=== PATIENT | male | born 1970 | race African-American/Black ===

== ENCOUNTER 2020-02-06 10:55 | Inpatient (IN) | payer OTHER ==
[~2020-02-06] VITALS: Ht 172.7 cm; Wt 90.7 kg
[2020-02-06 11:24] VITALS: BP 130/98
[2020-02-06 11:29] LABS: HEMATOCRIT 41.9 % (42.0-52.0); HEMOGLOBIN 12.7 G/DL (14.2-18.0); MEAN CORPUSCULAR VOLUME 73 FL (80-99); PLATELET COUNT 179 K/UL (150-450); RED BLOOD COUNT 5.76 M/UL (4.70-6.10); RED CELL DISTRIBUTION WIDTH 16.7 % (11.6-14.8)
[2020-02-06 11:43] LABS: ANION GAP 10 mmol/L (5-15); BLOOD UREA NITROGEN 8 mg/dL (7-18); CALCIUM 8.5 MG/DL (8.5-10.1); CARBON DIOXIDE 27 MMOL/L (21-32); CHLORIDE 104 MMOL/L (98-107); CREATININE 1.1 MG/DL (0.55-1.30); POTASSIUM 4.2 MMOL/L (3.5-5.1); SODIUM 141 MMOL/L (136-145)
[2020-02-06 11:47] LABS: ALANINE AMINOTRANSFERASE 25 U/L (12-78); ALBUMIN 4.5 G/DL (3.4-5.0); ALBUMIN/GLOBULIN RATIO 1.2 (1.0-2.7); ALKALINE PHOSPHATASE 63 U/L (46-116); ASPARTATE AMINO TRANSFERASE 27 U/L (15-37); BILIRUBIN,TOTAL 0.8 MG/DL (0.2-1.0)
[2020-02-06] MEDS ORDERED: Morphine Sulfate 10mg/ml Inj IVP ONE (12:00)
--- NOTE | 2020-02-06 13:28 | Diagnostic Imaging Report ---
Indication: Chest pain Technique: One view of the chest Comparison: none Findings: Lungs and pleural spaces are clear. Heart size is normal. Impression: No acute process
[2020-02-06] MEDS ORDERED: Omnipaque 350 100ml vial INJ PRN (13:30)
[2020-02-06] MEDS ORDERED: LORazepam 1mg tab ORAL ONE (13:30)
[2020-02-06] MEDS ORDERED: CYCLOBENZAPRINE10 MG ORAL (13:55)
[2020-02-06] MEDS ORDERED: AMLODIPINE BESYL5 MG ORAL (13:55)
[2020-02-06] MEDS ORDERED: PRILOSEC OTC20 MG ORAL (13:55)
[2020-02-06] MEDS ORDERED: NAPROXEN250 MG ORAL (13:55)
[2020-02-06] MEDS ORDERED: GABAPENTIN600 MG ORAL (13:55)
[2020-02-06] MEDS ORDERED: FLUTICASONE PRO16 G1 NASAL (13:55)
[2020-02-06] MEDS ORDERED: NORCO 10-325 T1 EACH ORAL (13:55)
[2020-02-06] MEDS ORDERED: FOLIC ACID1 MG ORAL (13:55)
--- NOTE | 2020-02-06 14:27 | Emergency Room Report ---
History of Present Illness General Chief Complaint: Chest Pain Source: Patient, EMS (Sabra Dillard DO) Present Illness HPI Patient states he has a history of sickle cell disease and other multiple chronic medical problems. The patient is very agitated gentle inquiry questions. When I arrived into the room to initially evaluate this patient he did not want to speak to me and stated that he had already spoken to the nurse. I asked him to please report to me his symptoms as I would be managing his care and that it is better for me to obtain his history directly from him. The patient continued to be agitated and irritable. He was insulting and constantly stating that he is receiving inferior care. The patient states that he has a terrible roommate and he has been in significant conflict with this roommate. He states that yesterday evening he had another argument with his roommate and he developed chest pain during the argument and all over body pain. He states he has had these symptoms since yesterday evening. He denies cough or congestion. He denies fever or chills. He denies shortness of breath. He states he is very anxious. He states that most doctors and nurses make assumptions about him because his labs are normal but he feels terrible. He states that he has had very poor interactions with most medical personnel. This was in response to why he was so angry as I had never seen him in the past and I am unfamiliar with his medical history. He continues to state that doctors and nurses are terrible people. I felt that the conversation was not constructive and that this patient was never going to be pleased with any care that he received. 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: Yes COVID-19 Screening: Negative COVID-19 COVID-19 Testing Source: 3 weeks ago, nasopharynx (Sabra Dillard DO) Patient History Past Medical History: HTN, other - SCD Social History: Denies: smoking, alcohol use, drug use Reviewed Nursing Documentation: PMH: Agreed; PSxH: Agreed (Sabra Dillard DO) Nursing Documentation-PMH Hx Hypertension: Yes (Sabra Dillard DO) Review of Systems All Other Systems: negative except mentioned in HPI ([facility]) Physical Exam Vital Signs Date Time Temp Pulse Resp B/P (MAP) Pulse Ox O2 Delivery O2 Flow Rate FiO2 02/06/20 10:49 98.6 102 20 138/100 (113) 98 Room Air 02/06/20 11:24 99 Sp02 EP Interpretation: reviewed, normal General Appearance: no apparent distress, alert, GCS 15, non-toxic Head: normocephalic, atraumatic Eyes: bilateral eye normal inspection, bilateral eye PERRL ENT: hearing grossly normal, normal pharynx, no angioedema, normal voice Neck: full range of motion, supple/symm/no masses Respiratory: lungs clear, normal breath sounds, no respiratory distress, no retraction, no accessory muscle use, speaking full sentences Cardiovascular #1: regular rate, rhythm, no edema Cardiovascular #2: 2+ carotid (R), 2+ carotid (L), 2+ radial (R), 2+ radial (L) , 2+ femoral (R), 2+ femoral (L), 2+ dorsalis pedis (R), 2+ dorsalis pedis (L) Gastrointestinal: normal bowel sounds, non tender, soft, non-distended, no guarding, no rebound Rectal: deferred Musculoskeletal: back normal, normal range of motion, gait/station normal, non- tender Neurologic: alert, motor strength/tone normal, oriented x3, sensory intact, responsive, speech normal Psychiatric: judgement/insight normal, memory normal, mood/affect normal, no suicidal/homicidal ideation Skin: no rash, normal color ([facility]) Medical Decision Making Diagnostic Impression: Primary Impression: Chest pain ER Course This patient has a history of sickle cell disease. Today he is not in crises. He does present with chest pain. There is no evidence of acute chest syndrome, acute coronary syndrome. The patient was given IV morphine and IV fluids and admitted for pain control. The patient's d-dimer is elevated which is nonspecific but given this finding and the patient's chest pain, I did go ahead and obtain a CT of the chest to assess for PE. At the time of this dictation the CT is pending. Dr. Kahn will follow up on these results. Please see his addendum. Laboratory Tests Test 7/16/20 11:06 White Blood Count 5.0 K/UL (4.8-10.8) Red Blood Count 5.76 M/UL (4.70-6.10) Hemoglobin 12.7 G/DL (14.2-18.0) L Hematocrit 41.9 % (42.0-52.0) L Mean Corpuscular Volume 73 FL (80-99) L Mean Corpuscular Hemoglobin 22.0 PG (27.0-31.0) L Mean Corpuscular Hemoglobin Concent 30.3 G/DL (32.0-36.0) L Red Cell Distribution Width 16.7 % (11.6-14.8) H Platelet Count 179 K/UL (150-450) Mean Platelet Volume 10.1 FL (6.5-10.1) Neutrophils (%) (Auto) % (45.0-75.0) Lymphocytes (%) (Auto) % (20.0-45.0) Monocytes (%) (Auto) % (1.0-10.0) Eosinophils (%) (Auto) % (0.0-3.0) Basophils (%) (Auto) % (0.0-2.0) Differential Total Cells Counted 100 Neutrophils % (Manual) 73 % (45-75) Lymphocytes % (Manual) 23 % (20-45) Monocytes % (Manual) 3 % (1-10) Eosinophils % (Manual) 1 % (0-3) Basophils % (Manual) 0 % (0-2) Band Neutrophils 0 % (0-8) Platelet Estimate Adequate Platelet Morphology Normal Polychromasia 1+ Hypochromasia 1+ Anisocytosis 1+ Microcytosis 1+ D-Dimer 1.41 mg/L FEU (0.00-0.49) H Sodium Level 141 MMOL/L (136-145) Potassium Level 4.2 MMOL/L (3.5-5.1) Chloride Level 104 MMOL/L (98-107) Carbon Dioxide Level 27 MMOL/L (21-32) Anion Gap 10 mmol/L (5-15) Blood Urea Nitrogen 8 mg/dL (7-18) Creatinine 1.1 MG/DL (0.55-1.30) Estimated Glomerular Filtration Rate > 60 mL/min (>60) Glucose Level 148 MG/DL (74-106) H Calcium Level 8.5 MG/DL (8.5-10.1) Total Bilirubin 0.8 MG/DL (0.2-1.0) Aspartate Amino Transferase (AST) 27 U/L (15-37) Alanine Aminotransferase (ALT) 25 U/L (12-78) Alkaline Phosphatase 63 U/L (46-116) Troponin I 0.000 ng/mL (0.000-0.056) C-Reactive Protein, Quantitative 1.1 mg/dL (0.00-0.90) H Total Protein 8.1 G/DL (6.4-8.2) Albumin 4.5 G/DL (3.4-5.0) Globulin 3.6 g/dL Albumin/Globulin Ratio 1.2 (1.0-2.7) (Sabra Dillard Judith ) ER Course Patient was signed out to me pending admission. Patient being admitted for chest pain. It was negative. CT angiogram did not demonstrate any large vessel PE. Patient was admitted to the hospitalist storeperson. (Jd Kahn M.D.) EKG Diagnostic Results Rate: tachycardiac Rhythm: other - S.tachycardia ST Segments: other - NSST ([facility]) Rhythm Strip Diag. Results EP Interpretation: yes Rate: 110's Rhythm: no PVC's, no ectopy, other - S.tachycardia ([facility]) Chest X-Ray Diagnostic Results Chest X-Ray Diagnostic Results : Chest X-Ray Ordered: Yes # of Views/Limited/Complete: 1 View Indication: Chest Pain EP Interpretation: Yes Interpretation: no consolidation, no effusion, no pneumothorax, no acute cardiopulmonary disease Impression: No acute disease Electronically Signed by: Sabra Dillard DO ([facility]) CT/MRI/US Diagnostic Results CT/MRI/US Diagnostic Results : Imaging Test Ordered: CTA Chest Impression pending (Sabra Dillard Judith ) Last Vital Signs Date Time Temp Pulse Resp B/P (MAP) Pulse Ox O2 Delivery O2 Flow Rate FiO2 02/06/20 12:36 98.6 02/06/20 11:24 110 19 130/98 99 Room Air 02/06/20 11:24 99 (NishantSabra M. DO) Disposition: ADMITTED INPATIENT Condition: Stable Referrals: NON PHYSICIAN (PCP) Sabra Dillard DO Feb 06, 2020 14:27 Jd Kahn M.D. Feb 06, 2020 17:06
[2020-02-06 15:00] VITALS: BP 124/95
[2020-02-06] MEDS ORDERED: Zolpidem 5mg tab ORAL PRN (15:41)
[2020-02-06] MEDS ORDERED: HYDROcodone/Acetamin 10/325 tab ORAL PRN (15:45)
[2020-02-06] MEDS ORDERED: Miralax 17gm pkt ORAL PRN (15:45)
--- NOTE | 2020-02-06 15:53 | Diagnostic Imaging Report ---
ndication: Chest pain Technique: IV administration nonionic contrast. Spiral acquisitions obtained from the lung bases to the lung apices. Multiplanar and 3-D reconstructions were generated. Total dose length product 324 mGycm. CTDIvol(s) one, one, 31, 8 mGy. Dose reduction achieved using automated exposure control Comparison: none Findings: Poor quality pulmonary arterial opacification precludes exclusion old with large central pulmonary emboli. Normal caliber pulmonary arteries. No evidence of right ventricular dilatation. Normal branching anatomy and caliber of the great neck vessels. No evidence of thoracic aortic aneurysm or dissection. The included upper abdominal visceral vessels are unremarkable. Bands of atelectasis are seen in the right upper and middle lobes. Reticular opacities are seen in the posterior lower lobes bilaterally. Faint hazy opacities are also seen in the bilateral lower lobe. No definite infiltrates. No effusions, masses, or nodules. The heart size is normal. No pericardial effusion. The thyroid is unremarkable. No mediastinal or hilar mass or adenopathy. The esophagus is unremarkable. No axillary or chest wall mass or adenopathy. Included upper abdominal viscera demonstrate massive splenomegaly, spleen measuring at least 18.7 cm in diameter, incompletely visualized however. Impression: Very limited evaluation of the pulmonary arteries due to poor quality pulmonary arterial opacification. No gross large vessel central pulmonary are demonstrated. Peripheral emboli not excludable Areas of parenchymal atelectasis, as described. Subtle peripheral opacities in the lower lobes could represent early infiltrates. Massive splenomegaly The CT scanner at [facility] is accredited by the [employer] [place] and the scans are performed using protocols designed to limit radiation exposure to as low as reasonably achievable to attain images of sufficient resolution adequate for diagnostic evaluation.
[2020-02-06 16:15] VITALS: BP 142/107
[2020-02-06] MEDS: Cyclobenzaprine 10mg Tab ORAL SCH (17:41)
[2020-02-06 20:00] VITALS: BP 152/99
[2020-02-06] MEDS: Heparin 5000 units/ml inj SUBQ SCH (22:39)
[2020-02-07] VITALS: BP 121/99
[2020-02-07 04:00] VITALS: BP 134/98
[2020-02-07 06:39] LABS: BASOPHILS % (AUTO) 0.6 % (0.0-2.0); EOSINOPHILS % (AUTO) 1.1 % (0.0-3.0); HEMATOCRIT 41.9 % (42.0-52.0); HEMOGLOBIN 12.5 G/DL (14.2-18.0); LYMPHOCYTES % (AUTO) 25.5 % (20.0-45.0); MEAN CORPUSCULAR VOLUME 72 FL (80-99); MONOCYTES % (AUTO) 5.4 % (1.0-10.0); NEUTROPHILS % (AUTO) 67.4 % (45.0-75.0); PLATELET COUNT 169 K/UL (150-450); RED BLOOD COUNT 5.83 M/UL (4.70-6.10); RED CELL DISTRIBUTION WIDTH 16.7 % (11.6-14.8); WHITE BLOOD COUNT 5.9 K/UL (4.8-10.8)
[2020-02-07 07:22] LABS: ALANINE AMINOTRANSFERASE 30 U/L (12-78); ALBUMIN 4.2 G/DL (3.4-5.0); ALBUMIN/GLOBULIN RATIO 1.1 (1.0-2.7); ALKALINE PHOSPHATASE 62 U/L (46-116); ANION GAP 9 mmol/L (5-15); ASPARTATE AMINO TRANSFERASE 27 U/L (15-37); BILIRUBIN,TOTAL 0.9 MG/DL (0.2-1.0); BLOOD UREA NITROGEN 9 mg/dL (7-18); CALCIUM 9.1 MG/DL (8.5-10.1); CARBON DIOXIDE 28 MMOL/L (21-32); CHLORIDE 103 MMOL/L (98-107); CREATININE 1.1 MG/DL (0.55-1.30); LACTATE DEHYDROGENASE 293 U/L (81-234); SODIUM 140 MMOL/L (136-145)
[2020-02-07 08:00] VITALS: BP 126/91
[2020-02-07] MEDS: Cyclobenzaprine 10mg Tab ORAL SCH ×3 (08:03→17:01)
[2020-02-07] MEDS: Heparin 5000 units/ml inj SUBQ SCH ×2 (08:11→21:00)
[2020-02-07 12:00] VITALS: BP 131/85
--- NOTE | 2020-02-07 12:32 | Consultation ---
History of Present Illness General Date patient seen: Feb 07, 2020 Chief Complaint: Chest Pain Present Illness HPI 49 year old male with hx of SCD, HTN, presented to ER with CC of right sided chest pain after an episode of argument with his roommate. He was tachycardic on presentation and admitted to telemetry for furhter management. Allergies: Coded Allergies: No Known Allergies (Unverified , 02/06/20) Medication History Scheduled Amlodipine Besylate* (Amlodipine Besylate*), 5 MG ORAL BID, (Reported) Cyclobenzaprine Hcl* (Flexeril*), 10 MG ORAL THREE TIMES A DAY, (Reported) Fluticasone Propionate* (Fluticasone Propionate*), 1 SPRAY NASAL DAILY, ( Reported) Folic Acid* (Folic Acid*), 1 MG ORAL DAILY, (Reported) Gabapentin* (Gabapentin*), 300 MG ORAL THREE TIMES A DAY, (Reported) Omeprazole Magnesium (Prilosec Otc), 20 MG ORAL DAILY, (Reported) Scheduled PRN Hydrocodone Bit/Acetaminophen 10-325* (Springer 10-325*), 1 TAB ORAL Q6H PRN for For Pain, (Reported) Naproxen* (Naprosyn*), 250 MG ORAL TID PRN for For Pain, (Reported) Patient History Healthcare decision maker Resuscitation status Advanced Directive on File Past Medical/Surgical History Past Medical/Surgical History: (1) History of hypertension (2) Sickle cell disease Review of Systems All Other Systems: negative except mentioned in HPI Physical Exam General Appearance: WD/WN, no apparent distress Lines, tubes and drains: peripheral, central line HEENT: normocephalic, anicteric Neck: non-tender, normal alignment Respiratory/Chest: chest wall non-tender, lungs clear Breasts: no masses Cardiovascular/Chest: normal peripheral pulses, regular rhythm Abdomen: normal bowel sounds, non tender Genitourinary/Rectal: normal genital exam, normal rectal exam Extremities: normal range of motion Last 24 Hour Vital Signs Date Time Temp Pulse Resp B/P (MAP) Pulse Ox O2 Delivery O2 Flow Rate FiO2 02/07/20 09:00 Room Air 02/07/20 08:24 104 126/91 02/07/20 08:00 97.8 104 20 126/91 (103) 97 02/07/20 07:54 109 02/07/20 04:47 97.3 7/17/20 04:00 97.7 109 18 134/98 (110) 100 02/07/20 04:00 109 02/07/20 00:00 109 02/07/20 00:00 97.3 110 18 121/99 (106) 98 02/06/20 22:03 97.9 02/06/20 20:39 Room Air 02/06/20 20:00 103 02/06/20 20:00 98.2 103 18 152/99 (116) 98 02/06/20 17:22 103 02/06/20 16:45 Room Air 02/06/20 16:15 97.9 103 18 142/107 (119) 98 02/06/20 15:50 98.6 94 18 120/96 99 Room Air 02/06/20 15:00 98.6 96 17 124/95 98 Room Air 02/06/20 12:36 98.6 Intake and Output 02/06/20 02/07/20 19:00 07:00 Intake Total 150 ml 1000 ml Balance 150 ml 1000 ml Intake Oral 0 ml 1000 ml IV Total 150 ml Laboratory Tests Test 02/06/20 15:35 02/07/20 05:45 Urine Opiates Screen Positive (NEGATIVE) H Urine Barbiturates Screen Negative (NEGATIVE) Phencyclidine (PCP) Screen Negative (NEGATIVE) Urine Amphetamines Screen Negative (NEGATIVE) Urine Benzodiazepines Screen Negative (NEGATIVE) Urine Cocaine Screen Negative (NEGATIVE) Urine Marijuana (THC) Screen Negative (NEGATIVE) White Blood Count 5.9 K/UL (4.8-10.8) Red Blood Count 5.83 M/UL (4.70-6.10) Hemoglobin 12.5 G/DL (14.2-18.0) L Hematocrit 41.9 % (42.0-52.0) L Mean Corpuscular Volume 72 FL (80-99) L Mean Corpuscular Hemoglobin 21.4 PG (27.0-31.0) L Mean Corpuscular Hemoglobin Concent 29.8 G/DL (32.0-36.0) L Red Cell Distribution Width 16.7 % (11.6-14.8) H Platelet Count 169 K/UL (150-450) Mean Platelet Volume 8.1 FL (6.5-10.1) Neutrophils (%) (Auto) 67.4 % (45.0-75.0) Lymphocytes (%) (Auto) 25.5 % (20.0-45.0) Monocytes (%) (Auto) 5.4 % (1.0-10.0) Eosinophils (%) (Auto) 1.1 % (0.0-3.0) Basophils (%) (Auto) 0.6 % (0.0-2.0) Sodium Level 140 MMOL/L (136-145) Potassium Level 4.0 MMOL/L (3.5-5.1) Chloride Level 103 MMOL/L (98-107) Carbon Dioxide Level 28 MMOL/L (21-32) Anion Gap 9 mmol/L (5-15) Blood Urea Nitrogen 9 mg/dL (7-18) Creatinine 1.1 MG/DL (0.55-1.30) Estimat Glomerular Filtration Rate > 60 mL/min (>60) Glucose Level 112 MG/DL (74-106) H Calcium Level 9.1 MG/DL (8.5-10.1) Total Bilirubin 0.9 MG/DL (0.2-1.0) Aspartate Amino Transf (AST/SGOT) 27 U/L (15-37) Alanine Aminotransferase (ALT/SGPT) 30 U/L (12-78) Alkaline Phosphatase 62 U/L (46-116) Lactate Dehydrogenase 293 U/L (81-234) H Total Protein 8.1 G/DL (6.4-8.2) Albumin 4.2 G/DL (3.4-5.0) Globulin 3.9 g/dL Albumin/Globulin Ratio 1.1 (1.0-2.7) Height (Feet): 5 Height (Inches): 8.00 Weight (Pounds): 200 Medications Current Medications Medications (Trade) Dose Ordered Sig/Emily Route PRN Reason Start Time Stop Time Status Last Admin Dose Admin Acetaminophen (Tylenol) 650 mg Q4H PRN ORAL fever 02/06/20 15:45 03/07/20 15:44 Acetaminophen/ Hydrocodone Bitart (Springer ) 1 tab Q6H PRN ORAL For Pain 02/06/20 15:45 02/13/20 15:44 02/06/20 21:33 Amlodipine Besylate (Norvasc) 5 mg DAILY ORAL 02/07/20 09:00 03/08/20 08:59 02/07/20 08:24 Cyclobenzaprine HCl (Flexeril) 10 mg THREE TIMES A DAY ORAL 02/06/20 18:00 03/07/20 17:59 02/07/20 08:03 Dextrose (Dextrose 50%) 25 ml Q30M PRN IV Hypoglycemia 02/06/20 15:45 05/06/20 15:44 Dextrose (Dextrose 50%) 50 ml Q30M PRN IV Hypoglycemia 02/06/20 15:45 05/06/20 15:44 Gabapentin (Neurontin) 300 mg THREE TIMES A DAY ORAL 02/06/20 18:00 03/07/20 17:59 02/07/20 08:03 Heparin Sodium (Porcine) (Heparin 5000 units/ml) 5,000 units EVERY 12 HOURS SUBQ 02/06/20 21:00 03/22/20 20:59 02/07/20 08:11 Hydromorphone HCl (Dilaudid) 2 mg Q3H PRN IV pain 4-6 02/06/20 15:45 02/13/20 15:44 Hydromorphone HCl (Dilaudid) 3 mg Q3H PRN IVP For Pain 7-02/06/20 15:45 02/13/20 15:44 02/07/20 11:29 Iohexol (Omnipaque 350 100ml) 100 ml NOW PRN INJ Radiology Procedure 02/06/20 13:30 02/08/20 13:26 Ondansetron HCl (Zofran) 4 mg EVERY 3 HOURS PRN IVP Nausea & Vomiting with narcoti 02/07/20 12:30 03/08/20 12:29 UNV Ondansetron HCl (Zofran) 4 mg Q6H PRN IVP Nausea & Vomiting 02/06/20 15:45 03/07/20 15:44 Polyethylene Glycol (Miralax) 17 gm HSPRN PRN ORAL Constipation 02/06/20 15:45 03/07/20 15:44 Sodium Chloride 1,000 ml @ 75 mls/hr [id number] IV 02/06/20 15:38 03/07/20 15:37 02/07/20 04:15 Zolpidem Tartrate (Ambien) 5 mg HSPRN PRN ORAL Insomnia 02/06/20 15:41 02/13/20 15:40 Assessment/Plan Problem List: (1) Chest pain ICD Codes: R07.9 - Chest pain, unspecified SNOMED: 94419833 (2) Sickle cell crisis ICD Codes: D57.00 - Hb-SS disease with crisis, unspecified SNOMED: 313335249 (3) History of hypertension ICD Codes: Z86.79 - Personal history of other diseases of the circulatory system SNOMED: 007587742 Assessment/Plan: iv fluids check LDH and reti count daily symptomatic treatment Zofran prn echo\ cardiology to see. Aracely Mcdonald MD Feb 07, 2020 12:32
[2020-02-07 16:00] VITALS: BP 108/71
--- NOTE | 2020-02-07 18:47 | Cardiology Progress Note ---
Assessment/Plan Assessment/Plan dyan t reviewed d/w rn PUI ct noted massive splenomgaly and reticulr infiltrate cedars data reviewed pt was lat there 2017 ss crissi , htn , sicke cell pain is on norvasc bid tropneg ekg reviewed will reealuate pt in am pt is afebrile saturation are normal cxr not show infiltrate exam in er did nto shwe any pulm ficings hgb is not low pt reprotedly is on bid norvasc but bp at this pointnto high enough to withstand bid dosing [id number] Objective Last 24 Hour Vital Signs Date Time Temp Pulse Resp B/P (MAP) Pulse Ox O2 Delivery O2 Flow Rate FiO2 02/07/20 16:00 97.9 89 20 108/71 (83) 96 02/07/20 15:45 99 02/07/20 12:00 97.8 113 20 131/85 (100) 97 02/07/20 11:33 115 02/07/20 09:00 Room Air 02/07/20 08:24 104 126/91 02/07/20 08:00 97.8 104 20 126/91 (103) 97 02/07/20 07:54 109 02/07/20 04:47 97.3 02/07/20 04:00 97.7 109 18 134/98 (110) 100 02/07/20 04:00 109 02/07/20 00:00 109 02/07/20 00:00 97.3 110 18 121/99 (106) 98 02/06/20 22:03 97.9 02/06/20 20:39 Room Air 02/06/20 20:00 103 02/06/20 20:00 98.2 103 18 152/99 (116) 98 Intake and Output 02/06/20 02/07/20 19:00 07:00 Intake Total 150 ml 1075 ml Balance 150 ml 1075 ml Intake Oral 0 ml 1000 ml IV Total 150 ml 75 ml Laboratory Tests Test 02/07/20 05:45 White Blood Count 5.9 K/UL (4.8-10.8) Red Blood Count 5.83 M/UL (4.70-6.10) Hemoglobin 12.5 G/DL (14.2-18.0) L Hematocrit 41.9 % (42.0-52.0) L Mean Corpuscular Volume 72 FL (80-99) L Mean Corpuscular Hemoglobin 21.4 PG (27.0-31.0) L Mean Corpuscular Hemoglobin Concent 29.8 G/DL (32.0-36.0) L Red Cell Distribution Width 16.7 % (11.6-14.8) H Platelet Count 169 K/UL (150-450) Mean Platelet Volume 8.1 FL (6.5-10.1) Neutrophils (%) (Auto) 67.4 % (45.0-75.0) Lymphocytes (%) (Auto) 25.5 % (20.0-45.0) Monocytes (%) (Auto) 5.4 % (1.0-10.0) Eosinophils (%) (Auto) 1.1 % (0.0-3.0) Basophils (%) (Auto) 0.6 % (0.0-2.0) Differential Total Cells Counted 100 Neutrophils % (Manual) 66 % (45-75) Lymphocytes % (Manual) 28 % (20-45) Monocytes % (Manual) 4 % (1-10) Eosinophils % (Manual) 1 % (0-3) Basophils % (Manual) 1 % (0-2) Band Neutrophils 0 % (0-8) Platelet Estimate Adequate Platelet Morphology Normal Anisocytosis 1+ Microcytosis 2+ Sodium Level 140 MMOL/L (136-145) Potassium Level 4.0 MMOL/L (3.5-5.1) Chloride Level 103 MMOL/L (98-107) Carbon Dioxide Level 28 MMOL/L (21-32) Anion Gap 9 mmol/L (5-15) Blood Urea Nitrogen 9 mg/dL (7-18) Creatinine 1.1 MG/DL (0.55-1.30) Estimat Glomerular Filtration Rate > 60 mL/min (>60) Glucose Level 112 MG/DL (74-106) H Calcium Level 9.1 MG/DL (8.5-10.1) Total Bilirubin 0.9 MG/DL (0.2-1.0) Aspartate Amino Transf (AST/SGOT) 27 U/L (15-37) Alanine Aminotransferase (ALT/SGPT) 30 U/L (12-78) Alkaline Phosphatase 62 U/L (46-116) Lactate Dehydrogenase 293 U/L (81-234) H Total Protein 8.1 G/DL (6.4-8.2) Albumin 4.2 G/DL (3.4-5.0) Globulin 3.9 g/dL Albumin/Globulin Ratio 1.1 (1.0-2.7) Juan Sommers MD Feb 07, 2020 18:47
[2020-02-07 20:00] VITALS: BP 139/98
--- NOTE | 2020-02-07 20:06 | History & Physical ---
History and Physical History & Physicial job number: [id number] Aren Almeida MD Feb 07, 2020 20:06
--- NOTE | 2020-02-07 22:45 | History and Physical Report ---
DATE OF ADMISSION: 02/06/2020 CHIEF COMPLAINT: The patient presented complaining about the right-sided chest pain. HISTORY OF PRESENT ILLNESS: This is a 49-year-old gentleman with past medical history significant for sickle cell disease with prior history of sickle cell crisis with splenomegaly, history of hypertension who presented to the emergency room complaining about the right-sided chest pain, it got progressively worsening after the argumentation with his roommate. The patient was found to be tachycardic in the emergency department. Subsequently, the patient was admitted to the hospital with sickle cell crisis with right-sided chest pain possible due to crisis. PAST MEDICAL HISTORY/PAST SURGICAL HISTORY: As above history of hypertension, sickle cell disease with prior history of sickle cell crisis. MEDICATIONS: Medications at home significant for amlodipine, Flexeril, Flonase, folic acid, gabapentin, and omeprazole. ALLERGIES: No known drug allergies. SOCIAL HISTORY: Denies any smoking, alcohol, or drugs at this time. FAMILY HISTORY: Noncontributory. REVIEW OF SYSTEMS: Mostly as above. Denies any dysuria, frequency, hematuria. Complained about right-sided chest pain. Denies any hemoptysis or hematochezia. Denies any bright red blood per rectum. PHYSICAL EXAMINATION: VITAL SIGNS: On admission from the emergency department, temperature 98.6, pulse of 96, respirations 17, blood pressure 124/95. GENERAL: The patient is awake and responsive, no acute distress. Anxious. HEAD AND NECK: Pupils are equal and reactive to light. Extraocular movements intact. Neck was supple. No JVD. LUNGS: Good air entry. No wheezing or rales. HEART: S1, S2. Regular rhythm. No gallops. ABDOMEN: Soft, nondistended, nontender. Positive bowel sounds. EXTREMITIES: No cyanosis, clubbing, or edema NEUROLOGIC: Cranial nerves II through XII grossly normal. Motor is 5/5 in all extremities. Gait is intact. RECTAL/GENITOURINARY: Refused and deferred. PSYCHIATRIC: Mood and affect is intact. LABORATORY DATA: On admission from the emergency department, WBC of 5.0, hemoglobin 12, hematocrit 41, and platelets is 179. Sodium 141, potassium 4.2, chloride 104, bicarb 27, BUN 8, and creatinine 1.1. First troponin 0.00. Lactic dehydrogenase 293. Urine drug screen positive for opioids. D-dimer is 1.41. The patient had a chest x-ray, no acute cardiopulmonary disease. CT angio of the chest, splenomegaly, very limited evaluation of pulmonary artery due to the poor quality, pulmonary artery opacification, no gross large central pulmonary artery demonstrated, peripheral emboli not excluded. ASSESSMENT: 1. Right-sided chest pain, possible due to the sickle cell crisis. 2. Sickle cell disease with prior history of sickle cell crisis. 3. Dehydration. 4. Hypertension. PLAN: 1. Admit the patient to telemetry. 2. We will follow up with Dr. Mcdonald, Pulmonary Critical Care and Dr. Sommers from Cardiology. 3. Code status, Full Code. 4. IV hydration. 5. DVT prophylaxis with heparin subcutaneous. 6. Followup with pain medication. 7. Discussed with the patient extensively regarding plan of care. Aren Almeida M.D. DR: Herrera JOB#: [id number] CC:
[2020-02-08] VITALS: BP 128/88
[2020-02-08 04:00] VITALS: BP 132/79
[2020-02-08 08:00] VITALS: BP 128/90
[2020-02-08 08:36] LABS: EOSINOPHILS % (AUTO) 2.4 % (0.0-3.0); HEMATOCRIT 39.6 % (42.0-52.0); LYMPHOCYTES % (AUTO) 29.3 % (20.0-45.0); MEAN CORPUSCULAR VOLUME 72 FL (80-99); MONOCYTES % (AUTO) 6.4 % (1.0-10.0); NEUTROPHILS % (AUTO) 60.8 % (45.0-75.0); PLATELET COUNT 153 K/UL (150-450); RED BLOOD COUNT 5.48 M/UL (4.70-6.10); RED CELL DISTRIBUTION WIDTH 16.4 % (11.6-14.8); WHITE BLOOD COUNT 4.6 K/UL (4.8-10.8)
[2020-02-08] MEDS: Cyclobenzaprine 10mg Tab ORAL SCH ×3 (08:59→18:04)
[2020-02-08 09:00] LABS: ALANINE AMINOTRANSFERASE 29 U/L (12-78); ALBUMIN 4.1 G/DL (3.4-5.0); ALKALINE PHOSPHATASE 60 U/L (46-116); ANION GAP 7 mmol/L (5-15); ASPARTATE AMINO TRANSFERASE 25 U/L (15-37); BILIRUBIN,TOTAL 0.8 MG/DL (0.2-1.0); BLOOD UREA NITROGEN 13 mg/dL (7-18); CALCIUM 8.8 MG/DL (8.5-10.1); CARBON DIOXIDE 31 MMOL/L (21-32); CHLORIDE 103 MMOL/L (98-107); CREATININE 1.2 MG/DL (0.55-1.30); LACTATE DEHYDROGENASE 245 U/L (81-234); POTASSIUM 3.9 MMOL/L (3.5-5.1); SODIUM 141 MMOL/L (136-145)
[2020-02-08] MEDS: Heparin 5000 units/ml inj SUBQ SCH ×2 (09:00→20:23)
[2020-02-08] MEDS: Flonase Nasal Inhaler 16gm NASAL SCH (09:00)
[2020-02-08 09:21] LABS: PHOSPHORUS 4.3 MG/DL (2.5-4.9)
[2020-02-08 12:00] VITALS: BP 136/92
--- NOTE | 2020-02-08 14:07 | Cardiology Progress Note ---
Assessment/Plan Assessment/Plan chest pain right sided reproted his of sicke cell htn gerd splenogegally in isolation for covid 10 PUI tropneg x1 will repeat today ekg reviewed sinus no st t ave abn covid pt is afebrile saturation are normal cxr not show infiltrate exam in er did not show any pulm findings hgb is not low pt reportedly is on bid norvasc bp toro is eellvated will increase to 5 mg bid Subjective Subjective per rn still angry still co of pain still request pain on the time due has todl rn is unstable and not want to walk eating Objective Last 24 Hour Vital Signs Date Time Temp Pulse Resp B/P (MAP) Pulse Ox O2 Delivery O2 Flow Rate FiO2 02/08/20 13:08 98.1 02/08/20 12:00 101 02/08/20 09:36 98.1 02/08/20 09:00 Room Air 02/08/20 08:59 98 128/90 02/08/20 08:00 98.1 98 20 128/90 (103) 02/08/20 08:00 140 02/08/20 04:00 113 02/08/20 04:00 98.7 102 16 132/79 (96) 97 02/08/20 00:00 96.8 91 20 128/88 (101) 96 02/08/20 00:00 81 02/07/20 21:00 Room Air 02/07/20 20:00 91 02/07/20 20:00 96.3 104 20 139/98 (112) 96 02/07/20 16:00 97.9 89 20 108/71 (83) 96 02/07/20 15:45 99 General Appearance: patient on isolation, isolation precautions Intake and Output 02/07/20 02/08/20 19:00 07:00 Intake Total 1225 ml 360 ml Balance 1225 ml 360 ml Intake Oral 400 ml IV Total 825 ml Other 360 ml # Voids 5 Laboratory Tests Test 02/08/20 07:45 White Blood Count 4.6 K/UL (4.8-10.8) L Red Blood Count 5.48 M/UL (4.70-6.10) Hemoglobin 12.0 G/DL (14.2-18.0) L Hematocrit 39.6 % (42.0-52.0) L Mean Corpuscular Volume 72 FL (80-99) L Mean Corpuscular Hemoglobin 21.9 PG (27.0-31.0) L Mean Corpuscular Hemoglobin Concent 30.3 G/DL (32.0-36.0) L Red Cell Distribution Width 16.4 % (11.6-14.8) H Platelet Count 153 K/UL (150-450) Mean Platelet Volume 9.4 FL (6.5-10.1) Neutrophils (%) (Auto) 60.8 % (45.0-75.0) Lymphocytes (%) (Auto) 29.3 % (20.0-45.0) Monocytes (%) (Auto) 6.4 % (1.0-10.0) Eosinophils (%) (Auto) 2.4 % (0.0-3.0) Basophils (%) (Auto) 1.0 % (0.0-2.0) Erythrocyte Sedimentation Rate 14 MM/HR (0-15) Reticulocyte Count 2.2 % (0.5-2.0) H Sodium Level 141 MMOL/L (136-145) Potassium Level 3.9 MMOL/L (3.5-5.1) Chloride Level 103 MMOL/L (98-107) Carbon Dioxide Level 31 MMOL/L (21-32) Anion Gap 7 mmol/L (5-15) Blood Urea Nitrogen 13 mg/dL (7-18) Creatinine 1.2 MG/DL (0.55-1.30) Estimat Glomerular Filtration Rate > 60 mL/min (>60) Glucose Level 110 MG/DL (74-106) H Calcium Level 8.8 MG/DL (8.5-10.1) Phosphorus Level 4.3 MG/DL (2.5-4.9) Magnesium Level 2.0 MG/DL (1.8-2.4) Total Bilirubin 0.8 MG/DL (0.2-1.0) Aspartate Amino Transf (AST/SGOT) 25 U/L (15-37) Alanine Aminotransferase (ALT/SGPT) 29 U/L (12-78) Alkaline Phosphatase 60 U/L (46-116) Lactate Dehydrogenase 245 U/L (81-234) H Total Protein 8.2 G/DL (6.4-8.2) Albumin 4.1 G/DL (3.4-5.0) Globulin 4.1 g/dL Albumin/Globulin Ratio 1.0 (1.0-2.7) Juan Sommers MD Feb 08, 2020 14:07
[2020-02-08 16:00] VITALS: BP 127/83
--- NOTE | 2020-02-08 17:02 | Internal Med Progress Note ---
Subjective Date of Service: Feb 08, 2020 Physician Name CherriMarcelino Attending Physician Aren Almeida MD Current Medications Medications (Trade) Dose Ordered Sig/Eimly Route PRN Reason Start Time Stop Time Status Last Admin Dose Admin Acetaminophen (Tylenol) 650 mg Q4H PRN ORAL fever 02/06/20 15:45 03/07/20 15:44 Acetaminophen/ Hydrocodone Bitart ([place] 10/325) 1 tab Q6H PRN ORAL For Pain 02/06/20 15:45 02/13/20 15:44 02/06/20 21:33 Amlodipine Besylate (Norvasc) 5 mg BID ORAL 02/08/20 18:00 03/09/20 17:59 Cyclobenzaprine HCl (Flexeril) 10 mg THREE TIMES A DAY ORAL 02/06/20 18:00 03/07/20 17:59 02/08/20 12:37 Dextrose (Dextrose 50%) 25 ml Q30M PRN IV Hypoglycemia 02/06/20 15:45 05/06/20 15:44 Dextrose (Dextrose 50%) 50 ml Q30M PRN IV Hypoglycemia 02/06/20 15:45 05/06/20 15:44 Fluticasone Propionate (Flonase) 1 spray DAILY NASAL 02/08/20 09:00 03/09/20 08:59 Folic Acid (Folate) 1 mg DAILY ORAL 02/08/20 09:00 03/09/20 08:59 02/08/20 08:59 Gabapentin (Neurontin) 300 mg THREE TIMES A DAY ORAL 02/06/20 18:00 03/07/20 17:59 02/08/20 12:37 Heparin Sodium (Porcine) (Heparin 5000 units/ml) 5,000 units EVERY 12 HOURS SUBQ 02/06/20 21:00 03/22/20 20:59 02/08/20 09:00 Hydromorphone HCl (Dilaudid) 2 mg Q3H PRN IV pain 4-6 02/06/20 15:45 02/13/20 15:44 02/08/20 12:38 Hydromorphone HCl (Dilaudid) 3 mg Q3H PRN IVP For Pain 7-10 02/06/20 15:45 02/13/20 15:44 02/08/20 16:42 Ondansetron HCl (Zofran) 4 mg Q3H PRN IVP Nausea & Vomiting with narcoti 02/07/20 12:30 03/08/20 12:29 02/08/20 16:43 Pantoprazole (Protonix) 40 mg DAILY ORAL 02/08/20 09:00 03/09/20 08:59 02/08/20 08:58 Polyethylene Glycol (Miralax) 17 gm HSPRN PRN ORAL Constipation 02/06/20 15:45 03/07/20 15:44 Sodium Chloride 1,000 ml @ 75 mls/hr [id number] IV 02/06/20 15:38 03/07/20 15:37 02/08/20 06:52 Zolpidem Tartrate (Ambien) 5 mg HSPRN PRN ORAL Insomnia 02/06/20 15:41 02/13/20 15:40 Allergies: Coded Allergies: No Known Allergies (Unverified , 02/06/20) ROS Limited/Unobtainable: No Constitutional: Reports: no symptoms HEENT: Reports: no symptoms Cardiovascular: Reports: chest pain Respiratory: Reports: no symptoms Gastrointestinal/Abdominal: Reports: no symptoms Genitourinary: Reports: no symptoms Neurologic/Psychiatric: Reports: no symptoms Subjective 49 YO M admitted with atypical chest pain. Now Sickle cell crisis. Cover for Int Med-Dr Almeida Objective Last Vital Signs Date Time Temp Pulse Resp B/P (MAP) Pulse Ox O2 Delivery O2 Flow Rate FiO2 02/08/20 16:00 98.1 93 20 127/83 (98) 98 02/08/20 09:00 Room Air 02/06/20 11:24 99 Laboratory Tests Test 02/08/20 07:45 White Blood Count 4.6 K/UL (4.8-10.8) L Red Blood Count 5.48 M/UL (4.70-6.10) Hemoglobin 12.0 G/DL (14.2-18.0) L Hematocrit 39.6 % (42.0-52.0) L Mean Corpuscular Volume 72 FL (80-99) L Mean Corpuscular Hemoglobin 21.9 PG (27.0-31.0) L Mean Corpuscular Hemoglobin Concent 30.3 G/DL (32.0-36.0) L Red Cell Distribution Width 16.4 % (11.6-14.8) H Platelet Count 153 K/UL (150-450) Mean Platelet Volume 9.4 FL (6.5-10.1) Neutrophils (%) (Auto) 60.8 % (45.0-75.0) Lymphocytes (%) (Auto) 29.3 % (20.0-45.0) Monocytes (%) (Auto) 6.4 % (1.0-10.0) Eosinophils (%) (Auto) 2.4 % (0.0-3.0) Basophils (%) (Auto) 1.0 % (0.0-2.0) Erythrocyte Sedimentation Rate 14 MM/HR (0-15) Reticulocyte Count 2.2 % (0.5-2.0) H Sodium Level 141 MMOL/L (136-145) Potassium Level 3.9 MMOL/L (3.5-5.1) Chloride Level 103 MMOL/L (98-107) Carbon Dioxide Level 31 MMOL/L (21-32) Anion Gap 7 mmol/L (5-15) Blood Urea Nitrogen 13 mg/dL (7-18) Creatinine 1.2 MG/DL (0.55-1.30) Estimat Glomerular Filtration Rate > 60 mL/min (>60) Glucose Level 110 MG/DL (74-106) H Calcium Level 8.8 MG/DL (8.5-10.1) Phosphorus Level 4.3 MG/DL (2.5-4.9) Magnesium Level 2.0 MG/DL (1.8-2.4) Total Bilirubin 0.8 MG/DL (0.2-1.0) Aspartate Amino Transf (AST/SGOT) 25 U/L (15-37) Alanine Aminotransferase (ALT/SGPT) 29 U/L (12-78) Alkaline Phosphatase 60 U/L (46-116) Lactate Dehydrogenase 245 U/L (81-234) H Total Protein 8.2 G/DL (6.4-8.2) Albumin 4.1 G/DL (3.4-5.0) Globulin 4.1 g/dL Albumin/Globulin Ratio 1.0 (1.0-2.7) Microbiology Date/Time Source Procedure Growth Status 02/07/20 18:00 Nasopharynx Coronavirus COVID-19 PCR ([facility]) - Final Complete Intake and Output 02/07/20 02/08/20 18:59 06:59 Intake Total 1300 ml 360 ml Balance 1300 ml 360 ml Intake Oral 400 ml IV Total 900 ml Other 360 ml # Voids 5 Objective PHYSICAL EXAMINATION: GENERAL: The patient is awake and responsive, no acute distress. Anxious. HEAD AND NECK: Pupils are equal and reactive to light. Extraocular movements intact. Neck was supple. No JVD. LUNGS: Good air entry. No wheezing or rales. HEART: S1, S2. Regular rhythm. No gallops. ABDOMEN: Soft, nondistended, nontender. Positive bowel sounds. EXTREMITIES: No cyanosis, clubbing, or edema NEUROLOGIC: Cranial nerves II through XII grossly normal. Motor is 5/5 in all extremities. Gait is intact. RECTAL/GENITOURINARY: Refused and deferred. PSYCHIATRIC: Mood and affect is intact. Assessment/Plan Assessment/Plan ASSESSMENT: 1. Right-sided chest pain, possible due to the sickle cell crisis. 2. Sickle cell disease with prior history of sickle cell crisis. 3. Dehydration. 4. Hypertension. PLAN: 1. Admit the patient to telemetry. 2. Dr. Mcdonald= Pulmonary Critical Care 3. Dr. Sommers =Cardiology. 3. Code status, Full Code. 4. ASSESSMENT: 1. Right-sided chest pain, possible due to the sickle cell crisis. 2. Sickle cell disease with prior history of sickle cell crisis. 3. Dehydration. 4. Hypertension. PLAN: 1. Admit the patient to telemetry. 2. We will follow up with Dr. Mcdonald, Pulmonary Critical Care and Dr. Sommers from Cardiology. 3. Code status, Full Code. 4. DVT prophylaxis = heparin subcutaneous. 6. pain management Marcelino Harley MD Feb 08, 2020 17:02
[2020-02-08 20:00] VITALS: BP 142/94
--- NOTE | 2020-02-08 20:00 | Consultation ---
DATE OF CONSULTATION: 02/07/2020 CARDIAC CONSULTATION CONSULTING PHYSICIAN: Juan Sommers MD. REFERRING PHYSICIANS: 1. Aren Almeida MD. 2. Aracely Mcdonald MD. REASON FOR REFERRAL: Chest pain. HISTORY OF PRESENT ILLNESS: This is a 49-year-old gentleman from a longterm. He has a history of sickle cell crisis and splenomegaly. This information is obtained from the chart as well as from review of the [facility] records. He presented from a longterm because of symptoms of right-sided chest pain progressively getting worse after an argument with his roommate. The roommate apparently may have been coughing and the patient was also concerned about possibility of COVID. He was found to be tachycardic in the emergency room and was admitted to the hospital because of sickle cell crisis and right-sided chest pain. The patient is in the COVID isolation unit at this time. All the information is obtained from my review of the patient's chart as well as discussing with the staff. He told the emergency room staff that he has had a terrible roommate and significant conflict with his roommate. He had an argument with the roommate and developed chest pain during the argument out of his body and he had this discomfort since prior to his presentation to the emergency room. He denied any coughing or congestion. Denied any fevers or chills and denied any shortness of breath to the emergency room staff who found him to be very anxious. He has admitted to having poor interaction with most medical personnel. PAST MEDICAL HISTORY: Positive for history of hypertension. The patient had a history of sickle cell anemia as well as hypertension, gastroesophageal reflux disease, according to the [facility] records. Apparently, he has a history of arthritis. He has had a history of abdominal hernia repair. FAMILY HISTORY: Diabetes, hypertension and cancer. SOCIAL HISTORY: He reported he was never a smoker and marijuana was prior used and alcohol was monthly or less used previously. REVIEW OF SYSTEMS: GENITOURINARY: Denies any discomfort on urination or blood in urination. CARDIAC: Apparently, he has history of chest pain in the right side. PULMONARY: Denied any hemoptysis. GASTROINTESTINAL: He had no bloody or black stools. CONSTITUTIONAL: No fevers apparently. No other review of systems questions available from this patient. PHYSICAL EXAMINATION: Per the emergency room physician included: GENERAL: No distress. Nontoxic apparently. NECK: Range of motion was normal, symmetric. No masses. LUNGS: Clear. No accessory muscles use, speaking full sentences. CARDIAC: Regular rate and rhythm. ABDOMEN: Soft, nontender. Positive bowel sounds. Nondistended. No guarding. No rebound. EXTREMITIES: There is no edema. LABORATORY AND DIAGNOSTIC DATA: His cardiac enzymes 0.00. His CRP was only 1. His sodium was 140, potassium 4.0, chloride 103, bicarb 28, BUN of 9, creatinine 1.1, and glucose of 112, and phosphorus of 9.1. Bilirubin 0.9, LDH of 293, total protein of 8.1, albumin of 4.2. The INR was 1.41 at time of admission. His tox screen was positive for opiates, but negative for barbiturates, phencyclidine, amphetamine, benzos, cocaine, or marijuana. His imaging in the emergency room had included a chest x-ray that showed no acute processes and his CTA of the lungs and chest showed very limited evaluation of pulmonary arteries due to poor quality of arterial opacification. No gross large versus central pulmonary embolism were noted. Peripheral emboli were not excludable. Area of parenchymal atelectasis was described. Peripheral opacities in the lower lobes could represent early infiltrates and the patient has massive splenomegaly. EKG shows sinus rhythm, normal QRS axis, no ST or T-wave abnormalities being noted. Telemetry shows sinus tachycardia with rates up to 120s, 130s mainly. White count 5.9, hemoglobin 12.5 and platelet count 169,000. ASSESSMENT AND PLAN: 1. Right-sided chest pain. 2. Sickle cell disease with sickle cell crisis from right-sided chest pain. 3. Splenomegaly. 4. Hypertension. The patient according to the nursing staff requested that his Norvasc be increased to b.i.d. instead of once a day, but at the time of my evaluation, he was noted to have blood pressure that was in the 108 to 120 range and therefore did not support the need for that medication. We will observe the patient for further need in the future. The patient will have serial enzymes and echocardiogram will be ordered. PCR for COVID has been ordered and pending at this time. Of note, despite having sickle cell, he does not really have a degree of anemia that is most typical of sickle crisis. In 2018 when he was admitted to [facility], his hemoglobin was also 12.5. The patient's saturations on room air have been 97% to 98%. He is hemodynamically stable. Otherwise, he is afebrile. His chest x-ray did not show any evidence of infiltrates. Nothing to support acute chest syndrome. Venous duplex should be ordered and we will follow the patient with an echocardiogram as well once his COVID test is negative. Juan Sommers M.D. DR: Syl JOB#: [id number] CC:
[2020-02-09] VITALS: BP 147/109
[2020-02-09 04:00] VITALS: BP 140/93
[2020-02-09 08:00] VITALS: BP 124/90
[2020-02-09] MEDS: Cyclobenzaprine 10mg Tab ORAL SCH ×3 (08:52→17:47)
[2020-02-09] MEDS: Heparin 5000 units/ml inj SUBQ SCH ×2 (08:55→21:53)
[2020-02-09] MEDS: Flonase Nasal Inhaler 16gm NASAL SCH (09:00)
[2020-02-09 12:00] VITALS: BP 132/89
[2020-02-09] MEDS ORDERED: 1/2 NS 1000ml IV ONE (13:27)
--- NOTE | 2020-02-09 13:28 | Cardiology Progress Note ---
Assessment/Plan Assessment/Plan chest pain right sided reproted his of sicke cell htn gerd splenogegally covid neg asked rn for alrg do of diluadid tropneg x1 will repeat nto yet performed will wait for the one form [place] he refused earlier the phelbotomist was not able to get from antecub fossa ekg reviewed sinus no st t ave abn pt is afebrile saturation are normal cxr not show infiltrate exam today no abn hgb is not low bp is diastolic is high may need additional med if trop is neg will dc tele Subjective Cardiovascular: Reports: chest pain - righsided no change with respiration of cough onlywhen turningin bed ; Denies: lightheadedness, palpitations Respiratory: Denies: shortness of breath Gastrointestinal/Abdominal: Denies: abdominal pain Genitourinary: Denies: burning Subjective per rn still angry still co of pain still request pain on the time due has todl rn is unstable and not want to walk eating Objective Last 24 Hour Vital Signs Date Time Temp Pulse Resp B/P (MAP) Pulse Ox O2 Delivery O2 Flow Rate FiO2 02/09/20 12:51 97.4 02/09/20 12:00 116 02/09/20 09:00 Room Air 02/09/20 08:53 114 136/90 02/09/20 08:00 97.4 114 20 124/90 (101) 98 02/09/20 08:00 124 02/09/20 04:00 98.2 100 18 140/93 (109) 02/09/20 04:00 94 02/09/20 00:00 116 02/09/20 00:00 96.3 116 18 147/109 (122) 02/08/20 21:00 Room Air 02/08/20 20:00 98.6 96 18 142/94 (110) 02/08/20 20:00 118 02/08/20 18:04 97 127/83 02/08/20 16:00 97 02/08/20 16:00 98.1 93 20 127/83 (98) 98 General Appearance: no apparent distress, alert Cardiovascular: normal rate Respiratory/Chest: lungs clear Abdomen: normal bowel sounds, non tender, soft Extremities: no swelling Intake and Output 02/08/20 02/09/20 19:00 07:00 Intake Total 900 ml 600 ml Balance 900 ml 600 ml Intake Oral 900 ml IV Total 600 ml # Voids 5 3 Microbiology Date/Time Source Procedure Growth Status 02/07/20 18:00 Nasopharynx Coronavirus COVID-19 PCR ([facility]) - Final Complete Juan Sommers MD Feb 09, 2020 13:28
[2020-02-09 16:25] VITALS: BP 133/69
[2020-02-09] MEDS ORDERED: HYDROcodone/Acetamin 10/325 tab ORAL PRN (16:34)
[2020-02-09] MEDS ORDERED: Zolpidem 5mg tab ORAL PRN (16:35)
[2020-02-09] MEDS ORDERED: Miralax 17gm pkt ORAL PRN (16:35)
--- NOTE | 2020-02-09 17:03 | Internal Med Progress Note ---
Subjective Date of Service: Feb 09, 2020 Physician Name CherriMarcelino Attending Physician Aren Almeida MD Current Medications Medications (Trade) Dose Ordered Sig/Emily Route PRN Reason Start Time Stop Time Status Last Admin Dose Admin Acetaminophen (Tylenol) 650 mg Q4H PRN ORAL fever 02/09/20 16:33 03/10/20 16:32 Acetaminophen/ Hydrocodone Bitart ([place] 10/325) 1 tab Q6H PRN ORAL For Pain 02/09/20 16:34 02/16/20 16:33 Amlodipine Besylate (Norvasc) 5 mg BID ORAL 02/09/20 18:00 03/09/20 17:59 Cyclobenzaprine HCl (Flexeril) 10 mg THREE TIMES A DAY ORAL 02/09/20 18:00 03/07/20 17:59 Dextrose (Dextrose 50%) 25 ml Q30M PRN IV Hypoglycemia 02/09/20 16:45 05/06/20 15:44 Dextrose (Dextrose 50%) 50 ml Q30M PRN IV Hypoglycemia 02/09/20 16:45 05/06/20 15:44 Fluticasone Propionate (Flonase) 1 spray DAILY NASAL 02/10/20 09:00 03/09/20 08:59 Folic Acid (Folate) 1 mg DAILY ORAL 02/10/20 09:00 03/09/20 08:59 Gabapentin (Neurontin) 300 mg THREE TIMES A DAY ORAL 02/09/20 18:00 03/07/20 17:59 Heparin Sodium (Porcine) (Heparin 5000 units/ml) 5,000 units EVERY 12 HOURS SUBQ 02/09/20 21:00 03/22/20 20:59 Hydromorphone HCl (Dilaudid) 2 mg Q3H PRN IV pain 4-6 02/09/20 16:34 02/16/20 16:33 Hydromorphone HCl (Dilaudid) 3 mg Q3H PRN IVP For Pain 7-10 02/09/20 16:35 02/16/20 16:34 Ondansetron HCl (Zofran) 4 mg Q3H PRN IVP Nausea & Vomiting with narcoti 02/09/20 16:35 03/10/20 16:34 Pantoprazole (Protonix) 40 mg DAILY ORAL 02/10/20 09:00 03/09/20 08:59 Polyethylene Glycol (Miralax) 17 gm HSPRN PRN ORAL Constipation 02/09/20 16:35 03/10/20 16:34 Sodium Chloride 1,000 ml @ 75 mls/hr [id number] IV 02/09/20 16:30 03/07/20 15:37 Zolpidem Tartrate (Ambien) 5 mg HSPRN PRN ORAL Insomnia 02/09/20 16:35 02/16/20 16:34 Allergies: Coded Allergies: No Known Allergies (Unverified , 02/06/20) ROS Limited/Unobtainable: No Constitutional: Reports: no symptoms HEENT: Reports: no symptoms Cardiovascular: Reports: chest pain Respiratory: Reports: no symptoms Gastrointestinal/Abdominal: Reports: no symptoms Genitourinary: Reports: no symptoms Neurologic/Psychiatric: Reports: no symptoms Subjective 49 YO M admitted with atypical chest pain. Now Sickle cell crisis. Cover for Int Med-Dr Almeida Objective Last Vital Signs Date Time Temp Pulse Resp B/P (MAP) Pulse Ox O2 Delivery O2 Flow Rate FiO2 02/09/20 15:58 97.4 02/09/20 12:00 104 20 132/89 (103) 98 02/09/20 09:00 Room Air 02/06/20 11:24 99 Microbiology Date/Time Source Procedure Growth Status 02/07/20 18:00 Nasopharynx Coronavirus COVID-19 PCR ([facility]) - Final Complete Intake and Output 02/08/20 02/09/20 19:00 07:00 Intake Total 900 ml 600 ml Balance 900 ml 600 ml Intake Oral 900 ml IV Total 600 ml # Voids 5 3 Objective PHYSICAL EXAMINATION: GENERAL: The patient is awake and responsive, no acute distress. Anxious. HEAD AND NECK: Pupils are equal and reactive to light. Extraocular movements intact. Neck was supple. No JVD. LUNGS: Good air entry. No wheezing or rales. HEART: S1, S2. Regular rhythm. No gallops. ABDOMEN: Soft, nondistended, nontender. Positive bowel sounds. EXTREMITIES: No cyanosis, clubbing, or edema NEUROLOGIC: Cranial nerves II through XII grossly normal. Motor is 5/5 in all extremities. Gait is intact. RECTAL/GENITOURINARY: Refused and deferred. PSYCHIATRIC: Mood and affect is intact. Assessment/Plan Assessment/Plan ASSESSMENT: 1. Right-sided chest pain, possible due to the sickle cell crisis. 2. Sickle cell disease with prior history of sickle cell crisis. 3. Dehydration. 4. Hypertension. PLAN: 1. Admit the patient to telemetry. 2. We will follow up with Dr. Mcdonald, Pulmonary Critical Care and Dr. Sommers from Cardiology. 3. Code status, Full Code. 4. DVT prophylaxis = heparin subcutaneous. 6. pain management Marcelino Harley MD Feb 09, 2020 17:03
[2020-02-09 20:00] VITALS: BP 137/81
[2020-02-10] VITALS: BP 113/81
[2020-02-10 04:00] VITALS: BP 134/106
[2020-02-10 08:00] VITALS: BP 130/97
[2020-02-10] MEDS: Cyclobenzaprine 10mg Tab ORAL SCH ×2 (08:30→12:53)
[2020-02-10] MEDS: Heparin 5000 units/ml inj SUBQ SCH (08:32)
[2020-02-10 08:43] LABS: BASOPHILS % (AUTO) 1.1 % (0.0-2.0); EOSINOPHILS % (AUTO) 2.6 % (0.0-3.0); HEMATOCRIT 43.5 % (42.0-52.0); HEMOGLOBIN 13.2 G/DL (14.2-18.0); LYMPHOCYTES % (AUTO) 35.7 % (20.0-45.0); MEAN CORPUSCULAR VOLUME 73 FL (80-99); NEUTROPHILS % (AUTO) 54.6 % (45.0-75.0); PLATELET COUNT 218 K/UL (150-450); RED BLOOD COUNT 6.01 M/UL (4.70-6.10); WHITE BLOOD COUNT 8.1 K/UL (4.8-10.8)
[2020-02-10] MEDS ORDERED: Flonase Nasal Inhaler 16gm NASAL SCH (09:00)
[2020-02-10 09:05] LABS: ANION GAP 7 mmol/L (5-15); BLOOD UREA NITROGEN 13 mg/dL (7-18); CALCIUM 9.3 MG/DL (8.5-10.1); CARBON DIOXIDE 31 MMOL/L (21-32); CHLORIDE 103 MMOL/L (98-107); CREATININE 1.2 MG/DL (0.55-1.30); POTASSIUM 3.7 MMOL/L (3.5-5.1); SODIUM 141 MMOL/L (136-145)
[2020-02-10 12:00] VITALS: BP 119/83
--- NOTE | 2020-02-10 12:01 | Diagnostic Imaging Report ---
Indication: Bilateral leg pain Technique: Grayscale and duplex images of the bilateral lower extremity veins Comparison: None Findings: Bilaterally, grayscale and duplex images demonstrate no evidence of intraluminal thrombus. Normal phasic Doppler waveforms, demonstrating normal augmentation response and no evidence of valvular insufficiency. Greater saphenous vein(s) and tibial veins are patent. Normal compressibility. Impression: Negative for evidence of lower extremity deep venous thrombosis bilaterally
--- NOTE | 2020-02-10 13:26 | Internal Med Progress Note ---
Subjective Date of Service: Feb 10, 2020 Physician Name CherriMarcelino Attending Physician Aren Almeida MD Current Medications Medications (Trade) Dose Ordered Sig/Emily Route PRN Reason Start Time Stop Time Status Last Admin Dose Admin Acetaminophen (Tylenol) 650 mg Q4H PRN ORAL fever 02/09/20 16:33 03/10/20 16:32 Acetaminophen/ Hydrocodone Bitart ([place] 10/325) 1 tab Q6H PRN ORAL For Pain 02/09/20 16:34 02/16/20 16:33 Amlodipine Besylate (Norvasc) 5 mg BID ORAL 02/09/20 18:00 03/09/20 17:59 02/10/20 08:30 Cyclobenzaprine HCl (Flexeril) 10 mg THREE TIMES A DAY ORAL 02/09/20 18:00 03/07/20 17:59 02/10/20 12:53 Dextrose (Dextrose 50%) 25 ml Q30M PRN IV Hypoglycemia 02/09/20 16:45 05/06/20 15:44 Dextrose (Dextrose 50%) 50 ml Q30M PRN IV Hypoglycemia 02/09/20 16:45 05/06/20 15:44 Fluticasone Propionate (Flonase) 1 spray DAILY NASAL 02/10/20 09:00 03/09/20 08:59 02/10/20 09:45 Folic Acid (Folate) 1 mg DAILY ORAL 02/10/20 09:00 03/09/20 08:59 02/10/20 08:30 Gabapentin (Neurontin) 300 mg THREE TIMES A DAY ORAL 02/09/20 18:00 03/07/20 17:59 02/10/20 12:53 Heparin Sodium (Porcine) (Heparin 5000 units/ml) 5,000 units EVERY 12 HOURS SUBQ 02/09/20 21:00 03/22/20 20:59 02/10/20 08:32 Hydromorphone HCl (Dilaudid) 2 mg Q3H PRN IV pain 4-6 02/09/20 16:34 02/16/20 16:33 Hydromorphone HCl (Dilaudid) 3 mg Q3H PRN IVP For Pain 7-10 02/09/20 16:35 02/16/20 16:34 02/10/20 12:54 Ondansetron HCl (Zofran) 4 mg Q3H PRN IVP Nausea & Vomiting with narcoti 02/09/20 16:35 03/10/20 16:34 02/10/20 12:53 Pantoprazole (Protonix) 40 mg DAILY ORAL 02/10/20 09:00 03/09/20 08:59 02/10/20 08:30 Polyethylene Glycol (Miralax) 17 gm HSPRN PRN ORAL Constipation 02/09/20 16:35 03/10/20 16:34 Sodium Chloride 1,000 ml @ 75 mls/hr [id number] IV 02/09/20 16:30 03/07/20 15:37 02/10/20 06:10 Zolpidem Tartrate (Ambien) 5 mg HSPRN PRN ORAL Insomnia 02/09/20 16:35 02/16/20 16:34 Allergies: Coded Allergies: No Known Allergies (Unverified , 02/06/20) ROS Limited/Unobtainable: No Constitutional: Reports: no symptoms HEENT: Reports: no symptoms Cardiovascular: Reports: no symptoms Respiratory: Reports: no symptoms Gastrointestinal/Abdominal: Reports: no symptoms Genitourinary: Reports: no symptoms Neurologic/Psychiatric: Reports: no symptoms Subjective 49 YO M admitted with atypical chest pain. Now Sickle cell crisis. Cover for Int Med-Dr Almeida Objective Last Vital Signs Date Time Temp Pulse Resp B/P (MAP) Pulse Ox O2 Delivery O2 Flow Rate FiO2 02/10/20 12:00 98.6 115 18 119/83 (95) 02/10/20 09:00 Room Air 02/09/20 16:25 98 02/06/20 11:24 99 Laboratory Tests Test 02/10/20 08:00 White Blood Count 8.1 K/UL (4.8-10.8) Red Blood Count 6.01 M/UL (4.70-6.10) Hemoglobin 13.2 G/DL (14.2-18.0) L Hematocrit 43.5 % (42.0-52.0) Mean Corpuscular Volume 73 FL (80-99) L Mean Corpuscular Hemoglobin 22.0 PG (27.0-31.0) L Mean Corpuscular Hemoglobin Concent 30.3 G/DL (32.0-36.0) L Red Cell Distribution Width 16.0 % (11.6-14.8) H Platelet Count 218 K/UL (150-450) Mean Platelet Volume 8.8 FL (6.5-10.1) Neutrophils (%) (Auto) 54.6 % (45.0-75.0) Lymphocytes (%) (Auto) 35.7 % (20.0-45.0) Monocytes (%) (Auto) 6.0 % (1.0-10.0) Eosinophils (%) (Auto) 2.6 % (0.0-3.0) Basophils (%) (Auto) 1.1 % (0.0-2.0) Sodium Level 141 MMOL/L (136-145) Potassium Level 3.7 MMOL/L (3.5-5.1) Chloride Level 103 MMOL/L (98-107) Carbon Dioxide Level 31 MMOL/L (21-32) Anion Gap 7 mmol/L (5-15) Blood Urea Nitrogen 13 mg/dL (7-18) Creatinine 1.2 MG/DL (0.55-1.30) Estimat Glomerular Filtration Rate > 60 mL/min (>60) Glucose Level 115 MG/DL (74-106) H Calcium Level 9.3 MG/DL (8.5-10.1) Microbiology Date/Time Source Procedure Growth Status 02/07/20 18:00 Nasopharynx Coronavirus COVID-19 PCR ([facility]) - Final Complete Intake and Output 02/09/20 02/10/20 19:00 07:00 Intake Total 525 ml 750 ml Output Total 1100 ml Balance 525 ml -350 ml IV Total 525 ml 750 ml Output Urine Total 1100 ml # Voids 2 Objective PHYSICAL EXAMINATION: GENERAL: The patient is awake and responsive, no acute distress. Anxious. HEAD AND NECK: Pupils are equal and reactive to light. Extraocular movements intact. Neck was supple. No JVD. LUNGS: Good air entry. No wheezing or rales. HEART: S1, S2. Regular rhythm. No gallops. ABDOMEN: Soft, nondistended, nontender. Positive bowel sounds. EXTREMITIES: No cyanosis, clubbing, or edema NEUROLOGIC: Cranial nerves II through XII grossly normal. Motor is 5/5 in all extremities. Gait is intact. RECTAL/GENITOURINARY: Refused and deferred. PSYCHIATRIC: Mood and affect is intact. Assessment/Plan Assessment/Plan ASSESSMENT: 1. Right-sided chest pain, possible due to the sickle cell crisis. 2. Sickle cell disease with prior history of sickle cell crisis. 3. Dehydration. 4. Hypertension. PLAN: 1. Admit the patient to telemetry. 2. We will follow up with Dr. Mcdonald, Pulmonary Critical Care and Dr. Sommers from Cardiology. 3. Code status, Full Code. 4. DVT prophylaxis = heparin subcutaneous. 6. pain management Marcelino Harley MD Feb 10, 2020 13:26
--- NOTE | 2020-02-10 14:24 | Pulmonology Progress Note ---
Subjective ROS Limited/Unobtainable: No Constitutional: Reports: no symptoms HEENT: Repors: no symptoms Allergies: Coded Allergies: No Known Allergies (Unverified , 02/06/20) Objective Last 24 Hour Vital Signs Date Time Temp Pulse Resp B/P (MAP) Pulse Ox O2 Delivery O2 Flow Rate FiO2 02/10/20 12:00 98.6 115 18 119/83 (95) 02/10/20 09:00 Room Air 02/10/20 08:30 120 130/97 02/10/20 08:00 97.0 120 18 130/97 (108) 02/10/20 04:00 97.5 101 18 134/106 (115) 02/10/20 00:00 97.3 102 19 113/81 (92) 02/09/20 21:00 Room Air 02/09/20 20:00 98.2 113 18 137/81 (99) 02/09/20 17:47 104 133/69 02/09/20 16:25 97.0 104 20 133/69 (90) 98 02/09/20 15:58 97.4 Intake and Output 02/09/20 02/10/20 19:00 07:00 Intake Total 525 ml 750 ml Output Total 1100 ml Balance 525 ml -350 ml IV Total 525 ml 750 ml Output Urine Total 1100 ml # Voids 2 General Appearance: WD/WN, no acute distress HEENT: normocephalic, anicteric Respiratory: chest wall non-tender, lungs clear Cardiovascular: normal peripheral pulses, regular rhythm Abdomen: normal bowel sounds, soft, non tender, no scars Extremities: no clubbing Skin: no ulcers Microbiology Date/Time Source Procedure Growth Status 02/07/20 18:00 Nasopharynx Coronavirus COVID-19 PCR ([facility]) - Final Complete Laboratory Tests 02/10/20 08:00: White Blood Count 8.1, Red Blood Count 6.01, Hemoglobin 13.2L, Hematocrit 43.5, Mean Corpuscular Volume 73L, Mean Corpuscular Hemoglobin 22.0L, Mean Corpuscular Hemoglobin Concent 30.3L, Red Cell Distribution Width 16.0H, Platelet Count 218, Mean Platelet Volume 8.8, Neutrophils (%) (Auto) 54.6, Lymphocytes (%) (Auto) 35.7, Monocytes (%) (Auto) 6.0, Eosinophils (%) (Auto) 2.6, Basophils (%) (Auto) 1.1, Sodium Level 141, Potassium Level 3.7, Chloride Level 103, Carbon Dioxide Level 31, Anion Gap 7, Blood Urea Nitrogen 13, Creatinine 1.2, Estimat Glomerular Filtration Rate > 60, Glucose Level 115H, Calcium Level 9.3 Current Medications Medications (Trade) Dose Ordered Sig/Emily Route PRN Reason Start Time Stop Time Status Last Admin Dose Admin Acetaminophen (Tylenol) 650 mg Q4H PRN ORAL fever 02/09/20 16:33 03/10/20 16:32 Acetaminophen/ Hydrocodone Bitart ([place] 10/325) 1 tab Q6H PRN ORAL For Pain 02/09/20 16:34 02/16/20 16:33 Amlodipine Besylate (Norvasc) 5 mg BID ORAL 02/09/20 18:00 03/09/20 17:59 02/10/20 08:30 Cyclobenzaprine HCl (Flexeril) 10 mg THREE TIMES A DAY ORAL 02/09/20 18:00 03/07/20 17:59 02/10/20 12:53 Dextrose (Dextrose 50%) 25 ml Q30M PRN IV Hypoglycemia 02/09/20 16:45 05/06/20 15:44 Dextrose (Dextrose 50%) 50 ml Q30M PRN IV Hypoglycemia 02/09/20 16:45 05/06/20 15:44 Fluticasone Propionate (Flonase) 1 spray DAILY NASAL 02/10/20 09:00 03/09/20 08:59 02/10/20 09:45 Folic Acid (Folate) 1 mg DAILY ORAL 02/10/20 09:00 03/09/20 08:59 02/10/20 08:30 Gabapentin (Neurontin) 300 mg THREE TIMES A DAY ORAL 02/09/20 18:00 03/07/20 17:59 02/10/20 12:53 Heparin Sodium (Porcine) (Heparin 5000 units/ml) 5,000 units EVERY 12 HOURS SUBQ 02/09/20 21:00 03/22/20 20:59 02/10/20 08:32 Hydromorphone HCl (Dilaudid) 2 mg Q3H PRN IV pain 4-6 02/09/20 16:34 02/16/20 16:33 Hydromorphone HCl (Dilaudid) 3 mg Q3H PRN IVP For Pain 7-02/09/20 16:35 02/16/20 16:34 02/10/20 12:54 Ondansetron HCl (Zofran) 4 mg Q3H PRN IVP Nausea & Vomiting with narcoti 02/09/20 16:35 03/10/20 16:34 02/10/20 12:53 Pantoprazole (Protonix) 40 mg DAILY ORAL 02/10/20 09:00 03/09/20 08:59 02/10/20 08:30 Polyethylene Glycol (Miralax) 17 gm HSPRN PRN ORAL Constipation 02/09/20 16:35 03/10/20 16:34 Sodium Chloride 1,000 ml @ 75 mls/hr [id number] IV 02/09/20 16:30 03/07/20 15:37 02/10/20 06:10 Zolpidem Tartrate (Ambien) 5 mg HSPRN PRN ORAL Insomnia 02/09/20 16:35 02/16/20 16:34 Assessment/Plan Problems: (1) Chest pain (2) Sickle cell crisis (3) History of hypertension Assessment/Plan improving LDH slightly high doing better dc planning soon. Aracely Mcdonald MD Feb 10, 2020 14:24
--- NOTE | 2020-02-11 07:59 | Discharge Summary ---
Discharge Summary Discharge Summary _ DATE OF ADMISSION: 02/06/2020 DATE OF DISCHARGE: 02/10/2020 DISCHARGED BY: Dr. Almeida REASON FOR ADMISSION: 49 years old male with past medical history of sickle cell disease, hypertension , anemia, presented to emergency department with the chest pain. Patient initially was agitated and irritable. Patient appeared to be in a significant conflict with his roommate. Patient reported an argument with the roommate the day before, after which he developed chest pain and generalized body pain. He reported that symptoms started the night prior to presentation to ED. He denied cough or congestion. He denied fever and chills. He denied shortness of breath. Upon evaluation patient was mildly tachycardic with heart rate 102,, blood pressure was 138/100 patient had no fever and pulse oximetry was stable on room air. Laboratory work-up revealed no leukocytosis, hemoglobin 12.7 hematocrit 41.9, platelet count 179. Stable electrolytes and renal parameters. Glucose 148. AST 27 ALT 25. Troponin negative. EKG revealed sinus tachycardia no acute ischemic changes CRP 1.1. Albumin 4.5. Chest x-ray revealed no acute cardiopulmonary pathology. CTA of the chest and thorax revealed very limited evaluation due to poor quality of pulmonary arterial opacification; no gross large vessel central pulmonary emboli demonstrated. Areas of parenchymal atelectasis noted. Subtle peripheral opacities in the lower lobe , which represent early infiltrates. In emergency room patient received fluids ,analgesics, anxiolytic and admitted for further management . CONSULTANTS: rehabilitation program coordinator Dr. Sommers pulmonary Dr. Mcdonald [facility] COURSE: Patient admitted to telemetry floor. Electric Wheelchair Repairer and trailer mechanic followed. EKG revealed no acute ischemic changes, troponin was negative. Patient was ruled out for acute myocardial infarction. Echocardiogram demonstrated preserved ejection fraction of 60 to 65%. No evidence of wall motion abnormalities. Right ventricular systolic pressure of 16. Venous duplex of bilateral lower extremity revealed no evidence of acute DVT. DVT prophylaxis provided. Blood pressure was managed with calcium channel steve. GI prophylaxis provided. Hemoglobin and hematocrit remained stable. Per rehabilitation program coordinator patient had right-sided chest pain probably due to sickle cell crisis. Patient received generous IV hydration. Nitroglycerin was on board as needed. COVID-19 by PCR on 02/06 was not detected. Patient clinically stabilized and was ready for discharge home. FINAL DIAGNOSES: Right-sided chest pain, possibly due to sickle cell crisis Sickle cell disease Hypertension Dehydration GERD DISCHARGE MEDICATIONS: See Medication Reconciliation list. DISCHARGE INSTRUCTIONS: Patient was discharged home. Outpatient follow-up with a primary care provider and binder cutter I have been assigned to dictate discharge summary for this account. I was not involved in the patient's management. Carina Berkowitz NP Feb 11, 2020 07:59
== END 2020-02-10 16:20 | disposition home or self-care (01) | DRG 662 ==
LOC: EDBD 10:55 → EMR 12:30 → 2E 14:50 → EDBEDREQ 15:15 → OBSVTOIN 17:24 → 4E 02-09 16:38
DX: D57.219 Sickle-cell/Hb-C disease with crisis, unspecified (principal); R07.89 Other chest pain; E86.0 Dehydration; I10 Essential (primary) hypertension; K21.9 Gastro-esophageal reflux disease without esophagitis; Z59.0 Homelessness; R16.1 Splenomegaly, not elsewhere classified
CPT/HCPCS: 36415; 71045; 71275; 80048; 80053; 80307; 83615; 83735; 84100; 84484; 85007; 85025; 85044; 85060; 85379; 85651; 86140; 93005; 93306; 93970; 96361; 96374; 96375; 99285; J2405; J7030

== ENCOUNTER → 2020-03-23 | Emergency (ER) | payer OTHER ==
[~2020-03-23] VITALS: Ht 172.7 cm; Wt 90.7 kg
[~2020-03-23] MED LIST: AMLODIPINE BESYL5 MG ORAL; CYCLOBENZAPRINE10 MG ORAL; FLUTICASONE PRO16 G1 NASAL; FOLIC ACID1 MG ORAL; GABAPENTIN600 MG ORAL; HYDROmorphone 1mg/ml Carpuject IVP ONE; HYDROmorphone 1mg/ml Carpuject ONE; NAPROXEN250 MG ORAL; NORCO 10-325 T1 EACH ORAL; PRILOSEC OTC20 MG ORAL
--- NOTE | 2020-03-23 05:30 | NUR ---
ED Nurse Note: Patient was brought in by ambulance [id number] from longterm house with c/o left shoulder and neck pain. Pain is 10/10 and patient has hx of sickle sell. Patient denies injury/fall. Patient denies chest pain, SOB/. Patient is AAOx4 and ambulates with cane. Placed on monitor bed.
--- NOTE | 2020-03-23 05:31 | NUR ---
ED Nurse Note: ERMD at bedside
--- NOTE | 2020-03-23 05:38 | Emergency Room Report ---
History of Present Illness General Chief Complaint: Pain Source: Patient, Medical Record, EMS (Morteza Dwyer MD) Present Illness HPI This is a 49-year-old male with a history of sickle cell disease and high blood pressure. He takes [place] 10 mg for his sickle cell pain. He presents with chief complaint of neck pain and shoulder pain. Localized to the left side. Onset for last few hours. Pain is 9 out of 10. Worse with movement. No fever chills but no nausea no vomiting. No coughing. Said is similar to his previous sickle cell pain but worse. Worse with movement. Better with rest. His pain medication not helping. (Morteza Dwyer MD) Allergies: Coded Allergies: No Known Allergies (Unverified , 02/06/20) COVID-19 Screening Contact w/high risk pt: No Experienced COVID-19 symptoms?: No COVID-19 Testing performed CULTURIST: No (Morteza Dwyer MD) Patient History Past Medical History: see triage record, old chart reviewed, HTN Past Surgical History: other Pertinent Family History: none Social History: Denies: smoking Immunizations: other Reviewed Nursing Documentation: PMH: Agreed; PSxH: Agreed (Morteza Dwyer MD) Nursing Documentation-PMH Hx Hypertension: Yes (Morteza Dwyer MD) Review of Systems Eye: Denies: eye pain, blurred vision ENT: Denies: ear pain, nose congestion, throat swelling Respiratory: Denies: cough, shortness of breath Cardiovascular: Denies: chest pain, palpitations Gastrointestinal: Denies: abdominal pain, diarrhea, nausea, vomiting Musculoskeletal: Reports: joint pain; Denies: back pain Skin: Denies: rash Neurological: Denies: headache, numbness Endocrine: Denies: increased thirst, increased urine Hematologic/Lymphatic: Denies: easy bruising All Other Systems: negative except mentioned in HPI (Morteza Dwyer MD) Physical Exam Vital Signs Date Time Temp Pulse Resp B/P (MAP) Pulse Ox O2 Delivery O2 Flow Rate FiO2 03/23/20 05:30 98.1 112 18 141/94 (110) 99 Room Air Vitals unremarkable Sp02 EP Interpretation: reviewed, normal General Appearance: well appearing, no apparent distress, alert Head: normocephalic, atraumatic Eyes: bilateral eye PERRL, bilateral eye EOMI ENT: hearing grossly normal, normal pharynx Neck: full range of motion, supple, no meningismus, tender - Numbness with palpation the lateral aspect of the neck and shoulder Respiratory: chest non-tender, lungs clear, normal breath sounds Cardiovascular #1: regular rate, rhythm, no murmur Gastrointestinal: normal bowel sounds, non tender, no mass, no organomegaly, no bruit, non-distended Musculoskeletal: back normal, normal range of motion, gait/station normal Psychiatric: mood/affect normal (Morteza Dwyer MD) Procedures Critical Care Time Critical Care Time Total critical care time: Approximately 45 minutes Due to a high probability of clinically significant, life threatening deterioration, the patient required the highest level of preparedness to intervene emergently and I personally spent this critical care time directly and personally managing the patient. This critical care time included obtaining a history, examining the patient, pulse oximetry, ordering and reviewing studies , ordering treatments, evaluating response to treatment and updating management plan as needed, frequent reassessment and discussion with other providers as well as arranging for ultimate disposition. This critical to care time was performed to assess and manage the high probability of life-threatening deterioration that could result in multiorgan failure. This critical care time is separate from the separately billable procedures and treating other patients. (Ganga Linares MD) Medical Decision Making Diagnostic Impression: Primary Impression: Sickle cell crisis Additional Impression: Sickle cell disease Qualified Codes: D57.00 - Hb-SS disease with crisis, unspecified ER Course Patient presents with neck and shoulder pain consistent with his sickle cell crisis. Will check labs and reticulocyte count. (Morteza Dwyer MD) ER Course Assumed care of the patient from the previous provider at approximately 0600 hrs. Please refer to initial note for full history and physical exam. Briefly, 49-year-old male with history of sickle cell disease presenting for evaluation of left-sided neck shoulder pain. At the time of signout we were awaiting results of blood work which have returned largely within normal limits. No significant anemia noted; no indication for emergent transfusion. Patient receiving IV fluids and IV pain medication however states that the IV pain medications have made no impact on the pain. Still currently 9/10. Has been using her home Pi[place] and Flexeril without any improvement in pain. No infiltrate on chest x-ray identified. Will admit for further IV fluids and pain medication for sickle cell pain crisis. 0840: Discussed with Dr. Simmons for transfer to [facility] per insurance plan. Patient stable for transfer. 1000: Patient required additional pain medication given persistent symptoms. He was initially hesitant about transfer to [facility] however after we discussed the admission process he was agreeable to transfer and admission. He was calm and cooperative and I answered his questions and addressed his concerns. Awaiting transport at this time. Laboratory Tests Test 03/23/20 05:45 03/23/20 06:15 White Blood Count 5.3 K/UL (4.8-10.8) Red Blood Count 5.86 M/UL (4.70-6.10) Hemoglobin 12.8 G/DL (14.2-18.0) L Hematocrit 41.3 % (42.0-52.0) L Mean Corpuscular Volume 71 FL (80-99) L Mean Corpuscular Hemoglobin 21.8 PG (27.0-31.0) L Mean Corpuscular Hemoglobin Concent 30.9 G/DL (32.0-36.0) L Red Cell Distribution Width 15.9 % (11.6-14.8) H Platelet Count 172 K/UL (150-450) Mean Platelet Volume 8.7 FL (6.5-10.1) Neutrophils (%) (Auto) 56.3 % (45.0-75.0) Lymphocytes (%) (Auto) 35.0 % (20.0-45.0) Monocytes (%) (Auto) 5.2 % (1.0-10.0) Eosinophils (%) (Auto) 2.3 % (0.0-3.0) Basophils (%) (Auto) 1.3 % (0.0-2.0) Reticulocyte Count Pending Sodium Level 138 MMOL/L (136-145) Potassium Level 4.0 MMOL/L (3.5-5.1) Chloride Level 103 MMOL/L (98-107) Carbon Dioxide Level 27 MMOL/L (21-32) Anion Gap 8 mmol/L (5-15) Blood Urea Nitrogen 9 mg/dL (7-18) Creatinine 1.2 MG/DL (0.55-1.30) Estimated Glomerular Filtration Rate > 60 mL/min (>60) Glucose Level 156 MG/DL (74-106) H Calcium Level 8.8 MG/DL (8.5-10.1) Troponin I 0.000 ng/mL (0.000-0.056) Urine Color Pale yellow Urine Appearance Clear Urine pH 6 (4.5-8.0) Urine Specific [place] 1.015 (1.005-1.035) Urine Protein Negative (NEGATIVE) Urine Glucose (UA) Negative (NEGATIVE) Urine Ketones Negative (NEGATIVE) Urine Blood Negative (NEGATIVE) Urine Nitrite Negative (NEGATIVE) Urine Bilirubin Negative (NEGATIVE) Urine Urobilinogen Normal MG/DL (0.0-1.0) Urine Leukocyte Esterase Negative (NEGATIVE) Urine RBC 0 /HPF (0 - 0) Urine WBC 0-2 /HPF (0 - 0) Urine Squamous Epithelial Cells Occasional /LPF Urine Bacteria Occasional /HPF (NONE) Urine Opiates Screen Positive (NEGATIVE) H Urine Barbiturates Screen Negative (NEGATIVE) Phencyclidine (PCP) Screen Negative (NEGATIVE) Urine Amphetamines Screen Negative (NEGATIVE) Urine Benzodiazepines Screen Negative (NEGATIVE) Urine Cocaine Screen Negative (NEGATIVE) Urine Marijuana (THC) Screen Negative (NEGATIVE) (Ganga Linares MD) Chest X-Ray Diagnostic Results Chest X-Ray Diagnostic Results : Chest X-Ray Ordered: Yes # of Views/Limited/Complete: 1 View Indication: Shortness of Breath EP Interpretation: Yes Interpretation: no consolidation, no effusion, no pneumothorax, no acute cardiopulmonary disease Impression: No acute disease (Ganga Linares MD) Last Vital Signs Date Time Temp Pulse Resp B/P (MAP) Pulse Ox O2 Delivery O2 Flow Rate FiO2 03/23/20 05:30 98.1 112 18 141/94 (110) 99 Room Air Status: improved (Morteza Dwyer MD) Disposition: SHORT-TERM HOSP Condition: Stable Morteza Dwyer MD Mar 23, 2020 05:38 Ganga Linares MD Mar 23, 2020 07:48
--- NOTE | 2020-03-23 05:45 | NUR ---
ED Nurse Note: Blood sent to lab for workup
--- NOTE | 2020-03-23 06:00 | NUR ---
ED Nurse Note: Patient still c/o shoulder and neck pain. ERMD notified
[2020-03-23 06:02] VITALS: BP 146/87
[2020-03-23 06:20] LABS: BASOPHILS % (AUTO) 1.3 % (0.0-2.0); EOSINOPHILS % (AUTO) 2.3 % (0.0-3.0); HEMATOCRIT 41.3 % (42.0-52.0); HEMOGLOBIN 12.8 G/DL (14.2-18.0); MEAN CORPUSCULAR VOLUME 71 FL (80-99); MONOCYTES % (AUTO) 5.2 % (1.0-10.0); NEUTROPHILS % (AUTO) 56.3 % (45.0-75.0); PLATELET COUNT 172 K/UL (150-450); RED BLOOD COUNT 5.86 M/UL (4.70-6.10); RED CELL DISTRIBUTION WIDTH 15.9 % (11.6-14.8); WHITE BLOOD COUNT 5.3 K/UL (4.8-10.8)
--- NOTE | 2020-03-23 06:28 | NUR ---
ED Nurse Note: Urine sent for workup
[2020-03-23 06:30] LABS: ANION GAP 8 mmol/L (5-15); BLOOD UREA NITROGEN 9 mg/dL (7-18); CALCIUM 8.8 MG/DL (8.5-10.1); CARBON DIOXIDE 27 MMOL/L (21-32); CHLORIDE 103 MMOL/L (98-107); CREATININE 1.2 MG/DL (0.55-1.30); SODIUM 138 MMOL/L (136-145)
[2020-03-23 06:48] LABS: APPEARANCE,URINE CLEAR; BILIRUBIN, URINE NEGATIVE (NEGATIVE); COLOR,URINE PALE YELLOW; GLUCOSE, URINE (UA) NEGATIVE (NEGATIVE); KETONES,URINE NEGATIVE (NEGATIVE); LEUKOCYTE ESTERASE ,URINE NEGATIVE (NEGATIVE); NITRITE,URINE NEGATIVE (NEGATIVE); PH,URINE 6 (4.5-8.0); PROTEIN,URINE NEGATIVE (NEGATIVE); UROBILINOGEN,URINE NORMAL MG/DL (0.0-1.0)
--- NOTE | 2020-03-23 07:06 | NUR ---
HAND-OFF: Report given to DIMITRIOS HICKEY RN .
--- NOTE | 2020-03-23 07:12 | NUR ---
ED Nurse Note: Received pt from [facility]URI[facility] Balbuena. resting and using his phone in bed without s/s of distress. vs stable as documented.
[2020-03-23 07:13] VITALS: BP 120/73
--- NOTE | 2020-03-23 08:13 | NUR ---
faxed clinicals to
--- NOTE | 2020-03-23 08:21 | NUR ---
ED Nurse Note: speak to case management manager for possible transfer.
--- NOTE | 2020-03-23 09:16 | NUR ---
ED Nurse Note: report given to Jose, cabin equipment supervisor at [facility].
--- NOTE | 2020-03-23 09:43 | NUR ---
ED Nurse Note: pt was expressing the frustration on being transferred instead of staying in [facility]. RN explained multiple time and pt insisting it is rasicm. ERMD made aware and spoke to pt for 20 minutes. pt agreed with verbalized understanding of purpose of transfer.
--- NOTE | 2020-03-23 10:33 | NUR ---
ED Nurse Note: transporation arrived. report given.
--- NOTE | 2020-03-23 10:38 | NUR ---
ED Nurse Note: pt left the facility with 2 electronics detail draftsperson in stable condition.
--- NOTE | 2020-03-23 12:16 | Diagnostic Imaging Report ---
Indication: Chest pain Technique: One view of the chest Comparison: none Findings: Lungs and pleural spaces are clear. Heart size is normal. No significant change Impression: No acute process
== END | disposition short-term general hospital (02) ==
LOC: EDUNIT# 05:29 → EDBD 05:29 → EMR 05:39
DX: D57.00 Hb-SS disease with crisis, unspecified (principal); I10 Essential (primary) hypertension
CPT/HCPCS: 36415; 71045; 80048; 80307; 81001; 84484; 85025; 85044; 96361; 96374; 96375; 96376; J1170; J2405; J7030; U0002; Z7502; 99291

== ENCOUNTER 2020-03-31 10:01 | Inpatient (IN) | payer OTHER ==
[~2020-03-31] VITALS: Ht 175.3 cm; Wt 94.1 kg
[2020-03-31 10:01] VITALS: BP 139/87
[~2020-03-31 10:01] MED LIST changes: -HYDROmorphone 1mg/ml Carpuject IVP ONE; -HYDROmorphone 1mg/ml Carpuject ONE
--- NOTE | 2020-03-31 10:01 | NUR ---
ED Nurse Note: Pt from [facility] and was brought in by [facility] due to Sickle Cell Disease and worsening lower back pain. Denies CP but noted pt to have mild SOB at rest. Skin is mildly pale but warm to touch. AAO x4, ambulatory with non labored breathing.
[2020-03-31] MEDS ORDERED: Omnipaque-300 100ml vial INJ PRN (10:15)
[2020-03-31] MEDS ORDERED: HYDROmorphone 1mg/ml Carpuject IVP ONE (10:15)
[2020-03-31] MEDS ORDERED: Omnipaque-300 100ml vial INJ ONE (10:15)
[2020-03-31] MEDS ORDERED: VALACYCLOVIR500 MG ORAL (10:27)
[2020-03-31] MEDS ORDERED: IBUPROFEN600 M1 ORAL (10:27)
[2020-03-31 10:43] LABS: BASOPHILS % (AUTO) 1.3 % (0.0-2.0); EOSINOPHILS % (AUTO) 1.4 % (0.0-3.0); HEMATOCRIT 37.5 % (42.0-52.0); HEMOGLOBIN 11.3 G/DL (14.2-18.0); LYMPHOCYTES % (AUTO) 20.4 % (20.0-45.0); MEAN CORPUSCULAR VOLUME 70 FL (80-99); MONOCYTES % (AUTO) 3.9 % (1.0-10.0); PLATELET COUNT 170 K/UL (150-450); RED BLOOD COUNT 5.38 M/UL (4.70-6.10); WHITE BLOOD COUNT 4.8 K/UL (4.8-10.8)
[2020-03-31 10:59] LABS: ANION GAP 12 mmol/L (5-15); BLOOD UREA NITROGEN 11 mg/dL (7-18); CALCIUM 8.9 MG/DL (8.5-10.1); CARBON DIOXIDE 24 MMOL/L (21-32); CHLORIDE 105 MMOL/L (98-107); CREATININE 1.1 MG/DL (0.55-1.30); POTASSIUM 3.8 MMOL/L (3.5-5.1); SODIUM 141 MMOL/L (136-145)
[2020-03-31 11:03] LABS: ALANINE AMINOTRANSFERASE 22 U/L (12-78); ALBUMIN 4.4 G/DL (3.4-5.0); ALBUMIN/GLOBULIN RATIO 1.1 (1.0-2.7); ALKALINE PHOSPHATASE 58 U/L (46-116); ASPARTATE AMINO TRANSFERASE 20 U/L (15-37); BILIRUBIN,TOTAL 0.9 MG/DL (0.2-1.0)
--- NOTE | 2020-03-31 11:09 | Emergency Room Report ---
History of Present Illness General Chief Complaint: Lower Back Pain or Injury Source: Patient, Medical Record Present Illness HPI 49-year-old male with past medical history of sickle cell on folic acid and methotrexate (Heme Onc at [facility] last seen a few weeks ago) here with back pain x2 days. Denies saddle anesthesia, urinary retention, urinary/fecal incontinence, hematuria, dysuria, scrotal/penile pain, abd pain, CP, SOB, fever, IV drug use, or trauma. States this feels similar to previous sickle cell crisis. He tried [place] at home which did not alleviate his symptoms. The patient's symptoms were gradual onset, severity was moderate, duration since 2 days. Quality: Aching Past medical history: Sickle cell disease Past surgical history: Denies Smoking: Denies Alcohol use: Denies Drug use: Denies Review of systems: CONST: No fevers or chills, No night sweats PULMONARY: No productive cough, No shortness of breath CARDIAC: No chest pain, No palpitations GI: No vomiting, No diarrhea , No melena_or_BRBPR : No dysuria, No hematuria, No discharge NEURO: No new_focal_weakness_or_numbness, No confusion, No vision changes 14 point Review of Systems is otherwise negative except per HPI Physical Exam: GENERAL: Awake_alert_ nontoxic, no acute distress Spo2 100% on RA -normal EYES: Extraocular muscles are intact. Conjunctivae clear. Lids without swelling ENT: External nose and ear normal_in_appearance. Oropharynx clear. Head_ atraumatic, Moist_oral_mucosa NECK: No JVD. No meningismus. No thyromegaly. Supple. Trachea midline RESP: Normal respiratory effort. Symmetric rise. No stridor. Clear_to_ auscultation_No_rales_No_wheezes CARDIAC: Tachycardic. regular rhytm. No_significant pedal edema. ABDOMEN: Soft. Nondistended. Nontender_No_rebound_or_guarding. MSK: Normal muscle tone, without rigidity. Extremities without asymmetric deformity or swelling. No saddle anesthesia. Muscle strength 5 out of 5 bilateral lower extremity in the hip, knee, and ankle. Midline low lumbar back pain. No deformity or step-off. No abscess palpated SKIN: Warm and dry. No visible cyanosis or pallor NEUROLOGIC: Alert, oriented x3. Motor_and_sensation_grossly_intact. No truncal ataxia. Gait_normal Psych: Normal mood and affect, normal judgment and insight - COORDINATION OF CARE Case was discussed with: Patient , Patient's Physician Any labs and imaging that were ordered were interpreted as part of the medical decision making: Medical Decision Making/Plan: Differential diagnosis includes musculoskeletal pain, muscle spasm / sprain, vertebral fracture, diskitis, DJD, OA, spinal epidural abscess, spinal epidural hematoma, pyelonephritis, kidney stone, AAA, among others. Initial vital signs show tachycardia without fever. Patient is noted to have mid low back pain without any neurologic deficits. Motor strength is 5/5 bilaterally. No saddle anesthesia. Labs are consistent with sickle cell pain crisis. Show acute drop in hemoglobin. Baseline Hgb is 13 and today it is in the 11's. Retic count (and LDH) are elevated therefore no signs of aplastic anemia at this time. Haptoglobin is pending. CT scan shows no SEA or evidence of diskitis. Patient was given Rocephin and vancomycin multiple doses Dilaudid for IV pain control. 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 Time is exclusive of separately billable procedures. Time includes: direct patient care, continuous monitoring and multiple patient reassessment, coordination of patient care, review of patient's medical records , medical consultation, family consultation regarding treatment decisions and documentation of patient care. Medical Decision Making Diagnostic Impression: Primary Impression: Sickle cell crisis Additional Impressions: Low back pain Hepatosplenomegaly Renal infarct Kidney stone DJD (degenerative joint disease) Neural foraminal stenosis of lumbar spine Renal cyst Bony sclerosis EKG Diagnostic Results ABRAHAM Melgar 12-lead EKG (interpreted by ) Time: 101 Indication: Rhythm analysis Tracing visualized and Interpreted by me. Rhythm: Sinus tachycardia Rate: 108 bpm QTc: 444 Morphology: No_significant_ST_elevations_or_depressions, No STEMI Impression: Sinus tachycardia. Normal axis. Normal intervals Rhythm Strip Diag. Results Rhythm Strip Time: 11:22 EP Interpretation: yes Rate: 113 Rhythm: no PVC's, no ectopy Chest X-Ray Diagnostic Results Chest X-Ray Diagnostic Results : ABRAHAM Barnhartibmaldonado Melgar Chest X-Ray: Views: 1 view(s) Indication: sickle cell disease Findings: Normal heart size. Mediastinum normal. No infiltrate. Impression: NAD The X-ray(s) were independently viewed and interpreted contemporaneously Electronically signed by Afsaneh ibanez DO CT/MRI/US Diagnostic Results CT/MRI/US Diagnostic Results : Impression CT Abdomen Pelvis w/Contrast Clinical Indication: Abdominal pain and back pain for 2 days Impression: Multifocal ill-defined low-attenuation areas in the kidneys bilaterally. Suspect that these represent tiny infarcts, given stated clinical history of sickle cell anemia. However, any or all of these could also represent areas of inflammation secondary to infection. Clinical correlation is advised Multiple calcifications in the left kidney. Uncertain as whether these represent parenchymal dystrophic calcifications versus nonobstructive peripheral calyceal calculi. No evidence of hydronephrosis Massive splenomegaly Hepatomegaly Basilar parenchymal reticular opacities. These could represent areas of fibrosis , or could represent areas of acute infiltrate, or combination of both. Diffuse osteosclerosis, consistent with known history of sickle cell disease Subcentimeter low-attenuation renal lesions, too small to characterize, most likely benign simple cysts Reevaluation Time: 11:23 Last Vital Signs Date Time Temp Pulse Resp B/P (MAP) Pulse Ox O2 Delivery O2 Flow Rate FiO2 03/31/20 10:01 98.2 111 16 139/87 98 Room Air Status: improved Disposition: ADMITTED INPATIENT Admit Decision Time: 11:23 Condition: Stable Referrals: NON PHYSICIAN (PCP) Afsaneh Hahn D.O. Mar 31, 2020 11:08
--- NOTE | 2020-03-31 11:22 | NUR ---
ED Nurse Note: Called lab for add on order reticulocyte count.
[2020-03-31] MEDS ORDERED: Hydromorphone 0.5mg/0.5ml inj IVP ONE (11:30)
--- NOTE | 2020-03-31 11:38 | NUR ---
ED Nurse Note: Patient still in pain and HR 110-120. Dr Hahn notified and waiting for new orders.
--- NOTE | 2020-03-31 11:40 | NUR ---
ED Nurse Note: Patient taken to CT in stable condition.
[2020-03-31] MEDS ORDERED: cefTRIAXone 1 GM in NS 55 ML IVPB ONE (11:45)
[2020-03-31 11:59] LABS: APPEARANCE,URINE CLEAR; BILIRUBIN, URINE NEGATIVE (NEGATIVE); COLOR,URINE PALE YELLOW; GLUCOSE, URINE (UA) NEGATIVE (NEGATIVE); KETONES,URINE NEGATIVE (NEGATIVE); LEUKOCYTE ESTERASE ,URINE NEGATIVE (NEGATIVE); NITRITE,URINE NEGATIVE (NEGATIVE); PH,URINE 7 (4.5-8.0); PROTEIN,URINE NEGATIVE (NEGATIVE); UROBILINOGEN,URINE NORMAL MG/DL (0.0-1.0)
--- NOTE | 2020-03-31 12:00 | NUR ---
ED Nurse Note: Pt returned from CT.
[2020-03-31 12:48] VITALS: BP 140/93
--- NOTE | 2020-03-31 12:50 | Diagnostic Imaging Report ---
Clinical Indication: Abdominal pain and back pain for 2 days Technique: No oral contrast utilized, per emergency room physician request IV administration nonionic contrast. Venous phase spiral acquisition obtained through the abdomen and pelvis. Multiplanar reconstructions were generated. Total dose length product 524 mGycm. CTDIvol(s) 9.3 mGy. Dose reduction achieved using automated exposure control Comparison: none Findings: Lack of enteric contrast limits assessment of the GI tract. The appendix is normal. No evidence of diverticulosis or diverticulitis. No small bowel distention. No free or loculated intraperitoneal gas or fluid is evident. Distal esophagus, stomach, duodenum are unremarkable. The liver is enlarged. No focal abnormality. The gallbladder, bile ducts, pancreas are unremarkable. The spleen is markedly enlarged, measuring 19 cm long axis dimension. No focal abnormality. The adrenals are unremarkable. The kidneys demonstrate small patchy heterogeneous areas of low-attenuation. It also demonstrates subcentimeter low-attenuation lesions which are too small to characterize but most likely represent benign simple cortical cysts. Multiple calcifications are seen in the left kidney. These are somewhat peripheral; uncertain as whether these represent peripheral calyceal calculi or parenchymal calcifications. No ureteral calculi, hydronephrosis, or hydroureter demonstrated. No mesenteric or retroperitoneal mass or adenopathy, although there are a few slightly prominent mesenteric root lymph nodes demonstrated. No pelvic mass or adenopathy. The included lung bases demonstrate some reticular opacities in the lower lobes bilaterally. There is also some reticular opacity in the right middle lobe. The bones are diffusely mildly osteosclerotic. Impression: Multifocal ill-defined low-attenuation areas in the kidneys bilaterally. Suspect that these represent tiny infarcts, given stated clinical history of sickle cell anemia. However, any or all of these could also represent areas of inflammation secondary to infection. Clinical correlation is advised Multiple calcifications in the left kidney. Uncertain as whether these represent parenchymal dystrophic calcifications versus nonobstructive peripheral calyceal calculi. No evidence of hydronephrosis Massive splenomegaly Hepatomegaly Basilar parenchymal reticular opacities. These could represent areas of fibrosis, or could represent areas of acute infiltrate, or combination of both. Diffuse osteosclerosis, consistent with known history of sickle cell disease Subcentimeter low-attenuation renal lesions, too small to characterize, most likely benign simple cysts The CT scanner at [facility] is accredited by the [employer] and the scans are performed using protocols designed to limit radiation exposure to as low as reasonably achievable to attain images of sufficient resolution adequate for diagnostic evaluation.
--- NOTE | 2020-03-31 13:01 | Diagnostic Imaging Report ---
Indications: Reason For Exam: PAIN Technique: Spiral acquisitions obtained through the lumbar spine. Multiplanar reconstructions were generated. Patient given IV contrast. Total dose length product 524 mGycm. CTDIvol(s) 9.3 mGy. Dose reduction achieved using automated exposure control Comparison: none Findings: There is transitional anatomy, with a detached right L1 transverse process forming a small rib. Multiple endplate intravertebral disc herniations are seen involving the inferior endplates of L2, L3, L4, and L5. There is also a similar finding involving the L5 superior endplate, and tiny 1's are seen involving the L3, L4, and S1 superior endplates. There is mild degenerative disc narrowing at L2-3, L3-4, and L4-5. The bony alignment is normal. No acute fractures. No dislocations. At L3-4, there is a left paracentral posterior osteophyte which results in borderline narrowing of the left side of the spinal canal. There is bilateral facet arthrosis at this level. The facet arthrosis results in mild bilateral neural foraminal narrowing. At L4-5, there is circumferential annular bulge which results in borderline narrowing of the spinal canal. Bilateral facet arthrosis is evident, resulting in minimal narrowing of the neural foramina bilaterally. At L5-S1, circumferential annular bulge results in borderline narrowing of the spinal canal. There is bilateral facet arthrosis, resulting in mild bilateral neural foraminal stenosis. At the remaining levels, no significant disc bulge or protrusion, spinal stenosis, or neural foraminal stenosis. No unusual contrast enhancement is demonstrated. There is diffuse mild osteosclerosis Impression: Multilevel intravertebral endplate disc herniation (so-called "Schmorl's nodes") as described Mild generalized osteosclerosis, presumably related to stated clinical history of sickle cell disease No definite CT findings to suggest acute infection. Note, however, limited sensitivity of CT for such; consider contrast MRI if there is high clinical suspicion Other degenerative changes as detailed on a level by level basis above The CT scanner at [facility] is accredited by the [employer] and the scans are performed using protocols designed to limit radiation exposure to as low as reasonably achievable to attain images of sufficient resolution adequate for diagnostic evaluation.
--- NOTE | 2020-03-31 13:38 | NUR ---
ED Nurse Note: REPRT GIVEN TO MURIEL HOLDER
--- NOTE | 2020-03-31 15:13 | Diagnostic Imaging Report ---
Indication: Cough Technique: One view of the chest Comparison: A 22/08/2019 Findings: Lungs and pleural spaces are clear. Heart size is normal. The bones are diffusely sclerotic. There is no significant interim change Impression: No acute process
[2020-03-31] MEDS ORDERED: HYDROmorphone 1mg/ml Carpuject IVP PRN (15:30)
[2020-03-31] MEDS ORDERED: HYDROcodone/Acetamin 10/325 tab ORAL PRN (15:30)
[2020-03-31] MEDS: Cyclobenzaprine 10mg Tab ORAL SCH (17:41)
[2020-03-31 20:00] VITALS: BP 117/82
--- NOTE | 2020-03-31 20:05 | NUR ---
NURSE HAND-OFF: Important Events on Shift: c/o pain Patient Status: full code Diet: regular Pending Orders: Pending Results/Labs:[] Pending MD notification: Latest Vital Signs: Temperature 98.7 , Pulse 105 , B/P 138 /89 , Respiratory Rate 15 , O2 SAT 98 , Room Air, O2 Flow Rate 2.0 . Vital Sign Comment: stable Latest Negrete Fall Score: 45 Fall Risk: High Risk Safety Measures: Call light Within Reach, Bed Alarm Zone 1, Side Rails Side Rails x2, Bed position Low and Locked. Fall Precautions: Patient Fall Education Report given to Herb RN, patient in stable condition however keeps complained of pain 05/02 stating that Dilaudid 1mg Q6h is not doing anything as well as [place] 10. Called Kaleb ROSARIO, and will adjust meds as indicated. I will f/u as needed.
--- NOTE | 2020-03-31 20:06 | NUR ---
NURSE NOTES: Received report from Rosendo LLAMAS.The patient is alert and oriented x4 and was complaining of severed pain even after taking [place] and Dilaudid q6 hr as prescribed. The EXTERMINATOR HELPER Eduardo Manuel was called and the patient Dilaudid was changed to q6hr as indicated.Patient is on 2 liters NC and the Resp is even and unlabored and the bilateral lung sounds are all clear on auscultation.The patient has a Left AC 20g heplock that is patent and asymptomatic. He can ambulate to the bathroom without any difficulty. The bed in low level and the call light within easy reach.
[2020-03-31] MEDS: HYDROmorphone 1mg/ml Carpuject IVP PRN (23:07)
[2020-04-01] VITALS: BP 126/82
[2020-04-01] MEDS: HYDROmorphone 1mg/ml Carpuject IVP PRN ×9 (03:23→23:14)
[2020-04-01 04:00] VITALS: BP 132/92
--- NOTE | 2020-04-01 04:11 | NUR ---
NURSE NOTES: The patient remained alert and oriented x4 but is continuously asking for pain Meds that he is in severe pain.He was given Dilaudid 1 mg IV at 2337 yesterday for severed pain and another one at 0323am today when he complained of a severed pain 10/10 on a scale of 0/10. The Resp is even and unlabored and the bilateral lung sounds are all clear on auscultation. According to the patient, Dilaudid is the only pain med that can relieve his pain.Will continue to monitor as indicated
--- NOTE | 2020-04-01 06:52 | NUR ---
NURSE NOTES: The patient was noted with increasing heart rate @ 116 bpm and was reported to Dr. Evans, he ordered NS 1000 bolus. will continue to monitor as indicated
--- NOTE | 2020-04-01 07:12 | NUR ---
HAND-OFF: Report given to Joe LLAMAS.Endorsed that patient has incresing heatrate and was ordered NS 1000ml bolus x1.
--- NOTE | 2020-04-01 07:15 | NUR ---
NURSE NOTES: Handoff received from Herb RN. Patient is awake and alert, reporting 10/10 pain. Herb RN stated he will medicate as ordered. Patient's IV is intact and asymptomatic and is saline locked. Bed is low and locked, side rails up x2, call light is within reach.
--- NOTE | 2020-04-01 07:20 | Consultation ---
History of Present Illness General Chief Complaint: Lower Back Pain or Injury Present Illness Allergies: Coded Allergies: No Known Allergies (Unverified , 02/06/20) Medication History Scheduled Amlodipine Besylate* (Amlodipine Besylate*), 5 MG ORAL BID, (Reported) Cyclobenzaprine Hcl* (Flexeril*), 10 MG ORAL THREE TIMES A DAY, (Reported) Fluticasone Propionate* (Fluticasone Propionate*), 1 SPRAY NASAL DAILY, ( Reported) Folic Acid* (Folic Acid*), 1 MG ORAL DAILY, (Reported) Gabapentin* (Gabapentin*), 300 MG ORAL THREE TIMES A DAY, (Reported) Ibuprofen* (Motrin*), 800 MG ORAL FOUR TIMES A DAY, (Reported) Omeprazole Magnesium (Prilosec Otc), 20 MG ORAL DAILY, (Reported) Valacyclovir Hcl* (Valtrex*), 500 MG ORAL TWICE A DAY, (Reported) Scheduled PRN Hydrocodone Bit/Acetaminophen 10-325* ([place] 10-325*), 1 TAB ORAL Q6H PRN for For Pain, (Reported) Naproxen* (Naprosyn*), 250 MG ORAL TID PRN for For Pain, (Reported) Patient History Healthcare decision maker Resuscitation status Advanced Directive on File Physical Exam Last 24 Hour Vital Signs Date Time Temp Pulse Resp B/P (MAP) Pulse Ox O2 Delivery O2 Flow Rate FiO2 04/01/20 04:00 97.6 115 20 132/92 (105) 99 04/01/20 00:00 97.8 98 19 126/82 (97) 100 03/31/20 21:32 105 117/82 03/31/20 21:00 Nasal Cannula 3.0 03/31/20 20:00 98.7 105 20 117/82 (94) 98 03/31/20 16:26 98.7 03/31/20 14:04 Nasal Cannula 2.0 03/31/20 13:39 98.7 105 15 138/89 98 Room Air 03/31/20 12:48 98.6 100 19 140/93 100 Room Air 03/31/20 12:08 98.6 03/31/20 10:58 98.3 03/31/20 10:01 98.2 111 16 139/87 98 Room Air 03/31/20 09:50 98.2 84 18 150/80 (103) 98 Room Air Intake and Output 03/31/20 04/01/20 19:00 07:00 Intake Total 1055 ml Balance 1055 ml Intake IV Total 1055 ml # Voids 1 Laboratory Tests Test 03/31/20 10:23 03/31/20 10:25 03/31/20 11:40 White Blood Count 4.8 K/UL (4.8-10.8) Red Blood Count 5.38 M/UL (4.70-6.10) Hemoglobin 11.3 G/DL (14.2-18.0) L Hematocrit 37.5 % (42.0-52.0) L Mean Corpuscular Volume 70 FL (80-99) L Mean Corpuscular Hemoglobin 21.0 PG (27.0-31.0) L Mean Corpuscular Hemoglobin Concent 30.1 G/DL (32.0-36.0) L Red Cell Distribution Width 17.0 % (11.6-14.8) H Platelet Count 170 K/UL (150-450) Mean Platelet Volume 7.7 FL (6.5-10.1) Neutrophils (%) (Auto) 73.0 % (45.0-75.0) Lymphocytes (%) (Auto) 20.4 % (20.0-45.0) Monocytes (%) (Auto) 3.9 % (1.0-10.0) Eosinophils (%) (Auto) 1.4 % (0.0-3.0) Basophils (%) (Auto) 1.3 % (0.0-2.0) Reticulocyte Count 2.3 % (0.5-2.0) H Haptoglobin Pending Prothrombin Time 11.4 SEC (9.30-11.50) Prothromb Time International Ratio 1.0 (0.9-1.1) Activated Partial Thromboplast Time 27 SEC (23-33) Sodium Level 141 MMOL/L (136-145) Potassium Level 3.8 MMOL/L (3.5-5.1) Chloride Level 105 MMOL/L (98-107) Carbon Dioxide Level 24 MMOL/L (21-32) Anion Gap 12 mmol/L (5-15) Blood Urea Nitrogen 11 mg/dL (7-18) Creatinine 1.1 MG/DL (0.55-1.30) Estimat Glomerular Filtration Rate > 60 mL/min (>60) Glucose Level 137 MG/DL (74-106) H Calcium Level 8.9 MG/DL (8.5-10.1) Total Bilirubin 0.9 MG/DL (0.2-1.0) Aspartate Amino Transf (AST/SGOT) 20 U/L (15-37) Alanine Aminotransferase (ALT/SGPT) 22 U/L (12-78) Alkaline Phosphatase 58 U/L (46-116) Lactate Dehydrogenase 368 U/L (81-234) H Total Protein 8.5 G/DL (6.4-8.2) H Albumin 4.4 G/DL (3.4-5.0) Globulin 4.1 g/dL Albumin/Globulin Ratio 1.1 (1.0-2.7) Troponin I 0.000 ng/mL (0.000-0.056) Urine Color Pale yellow Urine Appearance Clear Urine pH 7 (4.5-8.0) Urine Specific [place] 1.010 (1.005-1.035) Urine Protein Negative (NEGATIVE) Urine Glucose (UA) Negative (NEGATIVE) Urine Ketones Negative (NEGATIVE) Urine Blood Negative (NEGATIVE) Urine Nitrite Negative (NEGATIVE) Urine Bilirubin Negative (NEGATIVE) Urine Urobilinogen Normal MG/DL (0.0-1.0) Urine Leukocyte Esterase Negative (NEGATIVE) Microbiology Date/Time Source Procedure Growth Status 03/31/20 10:17 Nasopharynx SARS-CoV-2 RdRp Gene Assay - Final Complete Height (Feet): 5 Height (Inches): 9.00 Weight (Pounds): 169 Medications Current Medications Medications (Trade) Dose Ordered Sig/Emily Route PRN Reason Start Time Stop Time Status Last Admin Dose Admin Acetaminophen (Tylenol) 650 mg Q4H PRN ORAL Mild Pain (Pain Scale 1-3) 03/31/20 14:00 04/30/20 13:59 Amlodipine Besylate (Norvasc) 5 mg Q12HR ORAL 03/31/20 21:00 04/30/20 20:59 03/31/20 21:32 Cyclobenzaprine HCl (Flexeril) 10 mg THREE TIMES A DAY ORAL 03/31/20 18:00 04/07/20 17:59 03/31/20 17:41 Fluticasone Propionate (Flonase) 2 spray DAILY NASAL 04/01/20 09:00 05/01/20 08:59 Folic Acid (Folate) 1 mg DAILY ORAL 04/01/20 09:00 05/01/20 08:59 Gabapentin (Neurontin) 300 mg THREE TIMES A DAY ORAL 03/31/20 18:00 04/30/20 17:59 03/31/20 17:41 Hydromorphone HCl (Dilaudid) 1 mg Q4H PRN IVP Severe Pain (Pain Scale 7-10) 03/31/20 20:12 04/07/20 20:11 04/01/20 03:23 Iohexol (OMNIPAQUE-300 100ml) 100 ml NOW PRN INJ Radiology Procedure 03/31/20 10:15 04/02/20 10:07 Ondansetron HCl (Zofran ODT) 4 mg Q6H PRN ORAL Nausea & Vomiting 03/31/20 16:32 04/30/20 16:31 04/01/20 03:23 Pantoprazole (Protonix) 40 mg DAILY ORAL 04/01/20 09:00 05/01/20 08:59 Sodium Chloride 1,000 ml @ 999 mls/hr Q1H1M ONCE IV 04/01/20 07:00 04/01/20 08:00 UNV Assessment/Plan Assessment/Plan: Hematology Consultation Note REQ MD: Jayla Loera RFC: Sickle cell crisis HPI 49-year-old male with past medical history of sickle cell on folic acid and methotrexate (Heme Onc at [facility] last seen a few weeks ago -- he sees also Isabel Chavez at [facility] outpatient who is well knownt o ms) here with back pain x2 days. Denies saddle anesthesia, urinary retention, urinary/fecal incontinence, hematuria, dysuria, scrotal/penile pain, abd pain, CP, SOB, fever, IV drug use, or trauma. States this feels similar to previous sickle cell crisis. He tried [place] at home which did not alleviate his symptoms. The patient's symptoms were gradual onset, severity was moderate, duration since 2 days. Past medical history: Sickle cell disease Past surgical history: Denies Smoking: Denies Alcohol use: Denies Drug use: Denies Review of systems: CONST: No fevers or chills, No night sweats PULMONARY: No productive cough, No shortness of breath CARDIAC: No chest pain, No palpitations GI: No vomiting, No diarrhea , No melena or BRBPR : No dysuria, No hematuria, No discharge NEURO: No new_focal weakness or numbness, No confusion, No vision changes 14 point Review of Systems is otherwise negative except per HPI Physical Exam: GENERAL: Awake alert nontoxic, no acute distress EYES: Extraocular muscles are intact. ENT: External nose and ear normal in appearance. NECK: No JVD. No meningismus. No thyromegaly. Supple. Trachea midline RESP: Normal respiratory effort. Symmetric rise. CARDIAC: Tachycardic. regular rhytm. . ABDOMEN: Soft. Nondistended. MSK: Normal muscle tone, without rigidity. . . Midline low lumbar back pain. SKIN: Warm and dry. NEUROLOGIC: Alert, oriented x3. Labs: noted Imaging: reviewed Assessment and Recs # Anemia due to sickle cell crisis - is on mtx and folic acid per patient, and sees Isabel Chavez as outpatient, no on hydrea --> hgb trend 13-->11 --> ldh elevated --> will send off for sickle cell screen and spep --> CT scan shows no SEA or evidence of diskitis. --> pain management, pain service --> ivfs have been given --> imaging noted as well # Diffuse osteosclerosis, consistent with known history of sickle cell disease --> Patient was given Rocephin and vancomycin multiple doses Dilaudid for IV pain control. Also received IV fluids and oxygen # Low back pain --> imaging reviewed # Hepatosplenomegaly # Renal infarct # Kidney stone # DJD (degenerative joint disease) # Neural foraminal stenosis of lumbar spine # Renal cyst # Tachycardia due to hypovolemia Appreciate consultation and dw Washington Chapin MD Apr 01, 2020 07:20
[2020-04-01 08:00] VITALS: BP 116/74
[2020-04-01] MEDS: Cyclobenzaprine 10mg Tab ORAL SCH ×4 (08:21→17:15)
[2020-04-01] MEDS: Flonase Nasal Inhaler 16gm NASAL SCH (08:26)
--- NOTE | 2020-04-01 08:51 | Consultation ---
History of Present Illness General Date patient seen: Apr 01, 2020 Time patient seen: 08:45 - am Chief Complaint: Generalized body pain Referring physician: Shannan Reason for Consultation: Pain management Present Illness HPI This is a 49-year-old male being seen on the Med/surg floor of [facility] for initial pain management consultation. Patient was admitted under the care of Dr. Campbell due to sickle cell crisis. He tried Lamar at home which did not alleviate his symptoms. The patient's symptoms were gradual onset, severity was moderate, duration since 2 days. Past medical history: Sickle cell disease Past surgical history: Denies Smoking: Denies Alcohol use: Denies Drug use: Denies Allergies: Coded Allergies: No Known Allergies (Unverified , 02/06/20) Medication History Scheduled Amlodipine Besylate* (Amlodipine Besylate*), 5 MG ORAL BID, (Reported) Cyclobenzaprine Hcl* (Flexeril*), 10 MG ORAL THREE TIMES A DAY, (Reported) Fluticasone Propionate* (Fluticasone Propionate*), 1 SPRAY NASAL DAILY, ( Reported) Folic Acid* (Folic Acid*), 1 MG ORAL DAILY, (Reported) Gabapentin* (Gabapentin*), 300 MG ORAL THREE TIMES A DAY, (Reported) Ibuprofen* (Motrin*), 800 MG ORAL FOUR TIMES A DAY, (Reported) Omeprazole Magnesium (Prilosec Otc), 20 MG ORAL DAILY, (Reported) Valacyclovir Hcl* (Valtrex*), 500 MG ORAL TWICE A DAY, (Reported) Scheduled PRN Hydrocodone Bit/Acetaminophen 10-325* ([place] 10-325*), 1 TAB ORAL Q6H PRN for For Pain, (Reported) Naproxen* (Naprosyn*), 250 MG ORAL TID PRN for For Pain, (Reported) Patient History Healthcare decision maker Resuscitation status Advanced Directive on File Review of Systems ROS Narrative CONST: No fevers or chills, No night sweats PULMONARY: No productive cough, No shortness of breath CARDIAC: No chest pain, No palpitations GI: No vomiting, No diarrhea , No melena or BRBPR : No dysuria, No hematuria, No discharge NEURO: No new_focal weakness or numbness, No confusion, No vision changes Physical Exam Physical Exam Narrative GENERAL: Awake alert nontoxic, no acute distress EYES: Extraocular muscles are intact. ENT: External nose and ear normal in appearance. NECK: No JVD. No meningismus. No thyromegaly. Supple. Trachea midline RESP: Normal respiratory effort. Symmetric rise. CARDIAC: Tachycardic. regular rhytm. . ABDOMEN: Soft. Nondistended. MSK: Normal muscle tone, without rigidity. . . Midline low lumbar back pain. SKIN: Warm and dry. NEUROLOGIC: Alert, oriented x3. Last 24 Hour Vital Signs Date Time Temp Pulse Resp B/P (MAP) Pulse Ox O2 Delivery O2 Flow Rate FiO2 04/01/20 08:20 117 122/82 04/01/20 08:03 97.6 04/01/20 08:00 98.9 119 18 116/74 (88) 99 04/01/20 04:00 97.6 115 20 132/92 (105) 99 04/01/20 00:00 97.8 98 19 126/82 (97) 100 03/31/20 21:32 105 117/82 03/31/20 21:00 Nasal Cannula 3.0 03/31/20 20:00 98.7 105 20 117/82 (94) 98 03/31/20 16:26 98.7 03/31/20 14:04 Nasal Cannula 2.0 03/31/20 13:39 98.7 105 15 138/89 98 Room Air 03/31/20 12:48 98.6 100 19 140/93 100 Room Air 03/31/20 12:08 98.6 03/31/20 10:58 98.3 03/31/20 10:01 98.2 111 16 139/87 98 Room Air 03/31/20 09:50 98.2 84 18 150/80 (103) 98 Room Air Intake and Output 03/31/20 04/01/20 19:00 07:00 Intake Total 1055 ml Balance 1055 ml Intake IV Total 1055 ml # Voids 1 Laboratory Tests Test 03/31/20 10:23 03/31/20 10:25 03/31/20 11:40 White Blood Count 4.8 K/UL (4.8-10.8) Red Blood Count 5.38 M/UL (4.70-6.10) Hemoglobin 11.3 G/DL (14.2-18.0) L Hematocrit 37.5 % (42.0-52.0) L Mean Corpuscular Volume 70 FL (80-99) L Mean Corpuscular Hemoglobin 21.0 PG (27.0-31.0) L Mean Corpuscular Hemoglobin Concent 30.1 G/DL (32.0-36.0) L Red Cell Distribution Width 17.0 % (11.6-14.8) H Platelet Count 170 K/UL (150-450) Mean Platelet Volume 7.7 FL (6.5-10.1) Neutrophils (%) (Auto) 73.0 % (45.0-75.0) Lymphocytes (%) (Auto) 20.4 % (20.0-45.0) Monocytes (%) (Auto) 3.9 % (1.0-10.0) Eosinophils (%) (Auto) 1.4 % (0.0-3.0) Basophils (%) (Auto) 1.3 % (0.0-2.0) Reticulocyte Count 2.3 % (0.5-2.0) H Haptoglobin Pending Prothrombin Time 11.4 SEC (9.30-11.50) Prothromb Time International Ratio 1.0 (0.9-1.1) Activated Partial Thromboplast Time 27 SEC (23-33) Sodium Level 141 MMOL/L (136-145) Potassium Level 3.8 MMOL/L (3.5-5.1) Chloride Level 105 MMOL/L (98-107) Carbon Dioxide Level 24 MMOL/L (21-32) Anion Gap 12 mmol/L (5-15) Blood Urea Nitrogen 11 mg/dL (7-18) Creatinine 1.1 MG/DL (0.55-1.30) Estimat Glomerular Filtration Rate > 60 mL/min (>60) Glucose Level 137 MG/DL (74-106) H Calcium Level 8.9 MG/DL (8.5-10.1) Total Bilirubin 0.9 MG/DL (0.2-1.0) Aspartate Amino Transf (AST/SGOT) 20 U/L (15-37) Alanine Aminotransferase (ALT/SGPT) 22 U/L (12-78) Alkaline Phosphatase 58 U/L (46-116) Lactate Dehydrogenase 368 U/L (81-234) H Total Protein 8.5 G/DL (6.4-8.2) H Albumin 4.4 G/DL (3.4-5.0) Globulin 4.1 g/dL Albumin/Globulin Ratio 1.1 (1.0-2.7) Troponin I 0.000 ng/mL (0.000-0.056) Urine Color Pale yellow Urine Appearance Clear Urine pH 7 (4.5-8.0) Urine Specific [place] 1.010 (1.005-1.035) Urine Protein Negative (NEGATIVE) Urine Glucose (UA) Negative (NEGATIVE) Urine Ketones Negative (NEGATIVE) Urine Blood Negative (NEGATIVE) Urine Nitrite Negative (NEGATIVE) Urine Bilirubin Negative (NEGATIVE) Urine Urobilinogen Normal MG/DL (0.0-1.0) Urine Leukocyte Esterase Negative (NEGATIVE) Microbiology Date/Time Source Procedure Growth Status 03/31/20 10:17 Nasopharynx SARS-CoV-2 RdRp Gene Assay - Final Complete Height (Feet): 5 Height (Inches): 9.00 Weight (Pounds): 169 Medications Current Medications Medications (Trade) Dose Ordered Sig/Emily Route PRN Reason Start Time Stop Time Status Last Admin Dose Admin Acetaminophen (Tylenol) 650 mg Q4H PRN ORAL Mild Pain (Pain Scale 1-3) 03/31/20 14:00 04/30/20 13:59 Amlodipine Besylate (Norvasc) 5 mg Q12HR ORAL 03/31/20 21:00 04/30/20 20:59 04/01/20 08:20 Cyclobenzaprine HCl (Flexeril) 10 mg THREE TIMES A DAY ORAL 03/31/20 18:00 04/07/20 17:59 03/31/20 17:41 Fluticasone Propionate (Flonase) 2 spray DAILY NASAL 04/01/20 09:00 05/01/20 08:59 Folic Acid (Folate) 1 mg DAILY ORAL 04/01/20 09:00 05/01/20 08:59 04/01/20 08:21 Gabapentin (Neurontin) 300 mg THREE TIMES A DAY ORAL 03/31/20 18:00 04/30/20 17:59 04/01/20 08:21 Hydromorphone HCl (Dilaudid) 1 mg Q4H PRN IVP Severe Pain (Pain Scale 7-10) 03/31/20 20:12 9/15/20 20:11 04/01/20 07:33 Iohexol (OMNIPAQUE-300 100ml) 100 ml NOW PRN INJ Radiology Procedure 03/31/20 10:15 04/02/20 10:07 Ondansetron HCl (Zofran ODT) 4 mg Q6H PRN ORAL Nausea & Vomiting 03/31/20 16:32 04/30/20 16:31 04/01/20 03:23 Pantoprazole (Protonix) 40 mg DAILY ORAL 04/01/20 09:00 05/01/20 08:59 04/01/20 08:20 Assessment/Plan Assessment/Plan: (1) Sickle cell disease (2) Sickle cell crisis (3) Intractable pain Patient will be increased on Dilaudid 1.5mg IV Q2H PRN severe pain and continued on Lamar 10/325mg PO 1 tab Q4H PRN moderate pain D/w Dr. Heard and he concurred. Thank you for consultation. Eduardo Manuel Apr 01, 2020 08:51
[2020-04-01 09:06] LABS: BASOPHILS % (AUTO) 0.5 % (0.0-2.0); EOSINOPHILS % (AUTO) 0.6 % (0.0-3.0); HEMATOCRIT 36.7 % (42.0-52.0); HEMOGLOBIN 11.1 G/DL (14.2-18.0); LYMPHOCYTES % (AUTO) 16.9 % (20.0-45.0); MEAN CORPUSCULAR VOLUME 69 FL (80-99); MONOCYTES % (AUTO) 4.4 % (1.0-10.0); NEUTROPHILS % (AUTO) 77.5 % (45.0-75.0); PLATELET COUNT 116 K/UL (150-450); RED BLOOD COUNT 5.34 M/UL (4.70-6.10); RED CELL DISTRIBUTION WIDTH 16.8 % (11.6-14.8); WHITE BLOOD COUNT 5.2 K/UL (4.8-10.8)
--- NOTE | 2020-04-01 09:59 | NUR ---
F[employer] NOTE SW received a call from Ms. Mendiola from [facility] Sebastián [email or web address] that pt's medical documents have to be reviewed and approved by the program managers in order for him to return to the facility. DC date TBD
[2020-04-01 12:00] VITALS: BP 124/80
[2020-04-01 16:00] VITALS: BP 123/89
--- NOTE | 2020-04-01 16:05 | NUR ---
CASE MANAGEMENT: INITIAL REVIEW 49YR OLD MALE BIBTess FROM [facility] CC:LOWER BACK PAIN OR INJURY SI:SICKLE CELL CRISIS 98.3 84 18 150/80 98% ON RA BG 137 LDH 368 IS:IV NS BOLUS X1 IV ZOFRAN X1 IV DILAUDID X1 CHEST X-RAY- No acute process CT SPINE ~Multilevel intravertebral endplate disc herniation (so-called "Schmorl's nodes") as described Mild generalized osteosclerosis, presumably related to stated clinical history of sickle cell disease. No definite CT findings to suggest acute infection. Note, however, limited sensitivity of CT for such; consider contrast MRI if there is high clinical suspicion. Other degenerative changes as detailed on a level by level basis above CT Abdomen Pelvis-Multifocal ill-defined low-attenuation areas in the kidneys bilaterally.Suspect that these represent tiny infarcts, given stated clinical history of sickle cell anemia. However, any or all of these could also represent areas of inflammation secondary to infection. Clinical correlation is advised. Multiple calcifications in the left kidney. Uncertain as whether these represent parenchymal dystrophic calcifications versus nonobstructive peripheral calyceal calculi. No evidence of hydronephrosis. Massive splenomegaly. Hepatomegaly. Basilar parenchymal reticular opacities. These could represent areas of fibrosis, or could represent areas of acute infiltrate, or combination of both. Diffuse osteosclerosis, consistent with known history of sickle cell disease. Subcentimeter low-attenuation renal lesions, too small to characterize, most likely benign simple cysts \\: 3E MED SURG UNIT DCP: HOME WHEN STABLE CASE MANAGEMENT: INITIAL REVIEW 04/01/20 SI:SICKLE CELL CRISIS 98.9 119 18 116/74 99% ON RA FERR 1250 PLT 116 IS:IV DILAUDID Q2HR/PRN IV NEURONTIN PO TID NORVASC PO BID PROTONIX PO QD \\: 3E MED SURG UNIT DCP: HOME WHEN STABLE PLAN: SICKLE CELL SCREEN~IN PROCESS ELECTROPHORESIS SERUM ~IN PROCESS
--- NOTE | 2020-04-01 16:13 | NUR ---
CM NOTES CLINICALS FAXED TO P:[phone] F:[phone]
--- NOTE | 2020-04-01 19:25 | NUR ---
NURSE HAND-OFF: Important Events on Shift:[] Patient Status: stable Diet: regular Pending Orders: Pending Results/Labs: Pending MD notification: Latest Vital Signs: Temperature 97.6 , Pulse 108 , B/P 123 /89 , Respiratory Rate 18 , O2 SAT 97 , Nasal Cannula, O2 Flow Rate 3.0 . Vital Sign Comment: Latest Negrete Fall Score: 45 Fall Risk: High Risk Safety Measures: Call light Within Reach, Bed Alarm Zone 1, Side Rails Side Rails x2, Bed position Low and Locked. Fall Precautions: Yellow Socks Yellow Gown Door Sign Patient Fall Education Report given to Aakash LLAMAS.
--- NOTE | 2020-04-01 19:30 | NUR ---
Received pt lying in bed AOx4, c/o generalize pain, last pain medication given at 1909. IV R AC # 20 patent, C/D/I. NAD. Will continue to monitor.
[2020-04-01 20:00] VITALS: BP 112/73
[2020-04-02] VITALS: BP 120/88
[2020-04-02] MEDS: HYDROmorphone 1mg/ml Carpuject IVP PRN ×11 (01:16→22:16)
--- NOTE | 2020-04-02 03:14 | History and Physical Report ---
DATE OF ADMISSION: 03/31/2020 The patient is here for sickle cell crisis. The patient reports pain allover. The patient's back pain has been hurting a lot for the past 2 days and radiates to both legs and is admitted for sickle cell crisis. The patient denies nausea, vomiting, or diarrhea. No fever or chills. No shortness of breath. Denies cough. Denies abdominal pain. PAST MEDICAL HISTORY: Sickle cell, hypertension, GERD, hernia. PAST SURGICAL HISTORY: Hernia repair. SOCIAL HISTORY: History of marijuana use. Denies history of alcohol abuse. Denies smoking. No known allergies. MEDICATIONS: Flexeril, amlodipine, folic acid, gabapentin, Motrin, and Valtrex. FAMILY HISTORY: Noncontributory. REVIEW OF SYSTEMS: HEENT: Denies headaches. RESPIRATORY: Denies shortness of breath. Denies cough. CARDIOVASCULAR: Denies chest pain. GASTROINTESTINAL: Denies nausea, vomiting, or diarrhea. EXTREMITIES: Reports back pain, radiating to both legs. CENTRAL NERVOUS SYSTEM: Denies change in speech pattern. Feels weak. PHYSICAL EXAMINATION: VITAL SIGNS: Temperature 98.5, pulse is 114, blood pressure 124/80. HEENT: PERRLA. NECK: Supple. No lymphadenopathy. CHEST: Clear to auscultation. CARDIOVASCULAR: Tachycardic. GASTROINTESTINAL: Soft, nontender, nondistended. EXTREMITIES: Decreased range of motion in lower extremities due to pain in the hip joint. CENTRAL NERVOUS SYSTEM: Denies change in speech pattern. Reflexes equal on both sides. Dorsalis pedis pulses are present. LABORATORY DATA: WBC of 4.8, hemoglobin 11.3, platelets 170. Sodium 141, potassium 3.8, BUN of 11, creatinine 1.1. ASSESSMENT/PLAN: Sickle cell crisis . I have consulted with Dr. Evans, Dr. Heard, Dr. Felton to rule out infectious etiology as well as for pain management, and the patient currently needs IV fluids for the sickle cell crisis. Jayla Campbell M.D. DR: ARIELLE JOB#: [id number] CC:
[2020-04-02 04:00] VITALS: BP 125/86
--- NOTE | 2020-04-02 07:31 | Hematology/Onc Progress Note ---
Assessment/Plan Assessment/Plan Assessment and Recs # Anemia due to sickle cell crisis - is on folic acid per patient, and sees Isabel Chavez as outpatient, not on hydrea --> hgb trend 13-->11 --> ldh elevated --> will send off for sickle cell screen and spep --> CT scan shows no SEA or evidence of diskitis. --> pain management, pain service --> ivfs have been given --> imaging noted as well --> HOLD off hydrea for now, may need it as outpatient # Thrombocytopenia rule out reactive process --> hep and hiv ordered --> smear reviewed # Diffuse osteosclerosis, consistent with known history of sickle cell disease --> Patient was given Rocephin and vancomycin multiple doses Dilaudid for IV pain control. Also received IV fluids and oxygen # Low back pain --> imaging reviewed # Hepatosplenomegaly # Renal infarct # Kidney stone # DJD (degenerative joint disease) # Neural foraminal stenosis of lumbar spine # Renal cyst # Tachycardia due to hypovolemia Appreciate consultation and tamiko RN Subjective Constitutional: Denies: no symptoms, chills, fever, malaise, weakness, other HEENT: Denies: no symptoms, eye pain, blurred vision, tearing, double vision, ear pain, ear discharge, nose pain, nose congestion, throat pain, throat swelling, mouth pain, mouth swelling, other Cardiovascular: Denies: no symptoms, chest pain, edema, irregular heart rate, lightheadedness, palpitations, syncope, other Respiratory: Denies: no symptoms, cough, shortness of breath, SOB with excertion, SOB at rest, sputum, wheezing, other Gastrointestinal/Abdominal: Denies: no symptoms, abdomen distended, abdominal pain, black stools, tarry stools, blood in stool, constipated, diarrhea, difficulty swallowing, nausea, poor appetite, poor fluid intake, rectal bleeding , vomiting, other Genitourinary: Denies: no symptoms, burning, discharge, frequency, flank pain, hematuria, incontinence, pain, urgency, other Neurologic/Psychiatric: Denies: no symptoms, anxiety, depressed, emotional problems, headache, numbness, paresthesia, pre-existing deficit, seizure, tingling, tremors, weakness, other Endocrine: Denies: no symptoms, excessive sweating, flushing, intolerance to cold, intolerance to heat, increased hunger, increased thirst, increased urine, unexplained weight gain, unexplained weight loss, other Allergies: Coded Allergies: No Known Allergies (Unverified , 02/06/20) Subjective 04/02 using incentive spirometry, no bleeding, labs noted, less pain Objective Objective Current Medications Medications (Trade) Dose Ordered Sig/Emily Route PRN Reason Start Time Stop Time Status Last Admin Dose Admin Acetaminophen (Tylenol) 650 mg Q4H PRN ORAL Mild Pain (Pain Scale 1-3) 03/31/20 14:00 04/30/20 13:59 Acetaminophen/ Hydrocodone Bitart ([place] 10/325) 1 tab Q4H PRN ORAL Moderate Pain (Pain Scale 4-6) 04/01/20 09:00 04/08/20 08:59 Amlodipine Besylate (Norvasc) 5 mg Q12HR ORAL 03/31/20 21:00 04/30/20 20:59 04/01/20 21:16 Cyclobenzaprine HCl (Flexeril) 10 mg THREE TIMES A DAY ORAL 03/31/20 18:00 04/07/20 17:59 03/31/20 17:41 Fluticasone Propionate (Flonase) 2 spray DAILY NASAL 04/01/20 09:00 05/01/20 08:59 Folic Acid (Folate) 1 mg DAILY ORAL 04/01/20 09:00 05/01/20 08:59 04/01/20 08:21 Gabapentin (Neurontin) 300 mg THREE TIMES A DAY ORAL 03/31/20 18:00 04/30/20 17:59 04/01/20 17:14 Hydromorphone HCl (Dilaudid) 1.5 mg Q2H PRN IVP Severe Pain (Pain Scale 7-10) 04/01/20 09:00 04/07/20 20:11 04/02/20 07:03 Iohexol (OMNIPAQUE-300 100ml) 100 ml NOW PRN INJ Radiology Procedure 03/31/20 10:15 04/02/20 10:07 Ondansetron HCl (Zofran ODT) 4 mg Q6H PRN ORAL Nausea & Vomiting 03/31/20 16:32 04/30/20 16:31 04/01/20 03:23 Pantoprazole (Protonix) 40 mg DAILY ORAL 04/01/20 09:00 05/01/20 08:59 04/01/20 08:20 Last 24 Hour Vital Signs Date Time Temp Pulse Resp B/P (MAP) Pulse Ox O2 Delivery O2 Flow Rate FiO2 04/02/20 04:00 97.7 100 16 125/86 (99) 100 04/02/20 00:00 97.8 96 16 120/88 (99) 100 04/01/20 21:16 108 112/73 04/01/20 21:00 Nasal Cannula 2.0 04/01/20 20:00 97.5 108 16 112/73 (86) 98 04/01/20 17:45 97.6 04/01/20 16:00 98.4 108 18 123/89 (100) 97 04/01/20 12:00 98.5 114 20 124/80 (95) 99 04/01/20 09:00 Nasal Cannula 3.0 04/01/20 08:20 117 122/82 04/01/20 08:03 97.6 04/01/20 08:00 98.9 119 18 116/74 (88) 99 04/01/20 04:00 97.6 115 20 132/92 (105) 99 04/01/20 00:00 97.8 98 19 126/82 (97) 100 03/31/20 21:32 105 117/82 03/31/20 21:00 Nasal Cannula 3.0 03/31/20 20:00 98.7 105 20 117/82 (94) 98 03/31/20 16:26 98.7 03/31/20 14:04 Nasal Cannula 2.0 03/31/20 13:39 98.7 105 15 138/89 98 Room Air 03/31/20 12:48 98.6 100 19 140/93 100 Room Air 03/31/20 12:08 98.6 03/31/20 10:58 98.3 03/31/20 10:01 98.2 111 16 139/87 98 Room Air 03/31/20 09:50 98.2 84 18 150/80 (103) 98 Room Air Intake and Output 04/01/20 04/02/20 19:00 07:00 Intake Total 200 ml Output Total 550 ml Balance -350 ml Intake Oral 200 ml Output Urine Total 550 ml Labs Test 03/31/20 10:23 03/31/20 10:25 03/31/20 11:40 04/01/20 08:50 White Blood Count 4.8 K/UL (4.8-10.8) 5.2 K/UL (4.8-10.8) Red Blood Count 5.38 M/UL (4.70-6.10) 5.34 M/UL (4.70-6.10) Hemoglobin 11.3 G/DL (14.2-18.0) 11.1 G/DL (14.2-18.0) Hematocrit 37.5 % (42.0-52.0) 36.7 % (42.0-52.0) Mean Corpuscular Volume 70 FL (80-99) 69 FL (80-99) Mean Corpuscular Hemoglobin 21.0 PG (27.0-31.0) 20.8 PG (27.0-31.0) Mean Corpuscular Hemoglobin Concent 30.1 G/DL (32.0-36.0) 30.3 G/DL (32.0-36.0) Red Cell Distribution Width 17.0 % (11.6-14.8) 16.8 % (11.6-14.8) Platelet Count 170 K/UL (150-450) 116 K/UL (150-450) Mean Platelet Volume 7.7 FL (6.5-10.1) 7.2 FL (6.5-10.1) Neutrophils (%) (Auto) 73.0 % (45.0-75.0) 77.5 % (45.0-75.0) Lymphocytes (%) (Auto) 20.4 % (20.0-45.0) 16.9 % (20.0-45.0) Monocytes (%) (Auto) 3.9 % (1.0-10.0) 4.4 % (1.0-10.0) Eosinophils (%) (Auto) 1.4 % (0.0-3.0) 0.6 % (0.0-3.0) Basophils (%) (Auto) 1.3 % (0.0-2.0) 0.5 % (0.0-2.0) Reticulocyte Count 2.3 % (0.5-2.0) Prothrombin Time 11.4 SEC (9.30-11.50) Prothromb Time International Ratio 1.0 (0.9-1.1) Activated Partial Thromboplast Time 27 SEC (23-33) Sodium Level 141 MMOL/L (136-145) Potassium Level 3.8 MMOL/L (3.5-5.1) Chloride Level 105 MMOL/L (98-107) Carbon Dioxide Level 24 MMOL/L (21-32) Anion Gap 12 mmol/L (5-15) Blood Urea Nitrogen 11 mg/dL (7-18) Creatinine 1.1 MG/DL (0.55-1.30) Estimat Glomerular Filtration Rate > 60 mL/min (>60) Glucose Level 137 MG/DL (74-106) Calcium Level 8.9 MG/DL (8.5-10.1) Total Bilirubin 0.9 MG/DL (0.2-1.0) Aspartate Amino Transf (AST/SGOT) 20 U/L (15-37) Alanine Aminotransferase (ALT/SGPT) 22 U/L (12-78) Alkaline Phosphatase 58 U/L (46-116) Lactate Dehydrogenase 368 U/L (81-234) Total Protein 8.5 G/DL (6.4-8.2) Albumin 4.4 G/DL (3.4-5.0) Globulin 4.1 g/dL Albumin/Globulin Ratio 1.1 (1.0-2.7) Troponin I 0.000 ng/mL (0.000-0.056) Urine Color Pale yellow Urine Appearance Clear Urine pH 7 (4.5-8.0) Urine Specific [place] 1.010 (1.005-1.035) Urine Protein Negative (NEGATIVE) Urine Glucose (UA) Negative (NEGATIVE) Urine Ketones Negative (NEGATIVE) Urine Blood Negative (NEGATIVE) Urine Nitrite Negative (NEGATIVE) Urine Bilirubin Negative (NEGATIVE) Urine Urobilinogen Normal MG/DL (0.0-1.0) Urine Leukocyte Esterase Negative (NEGATIVE) Ferritin 1250 NG/ML (8-388) Height (Feet): 5 Height (Inches): 9.00 Weight (Pounds): 169 Objective Physical Exam: GENERAL: Awake alert nontoxic, no acute distress EYES: Extraocular muscles are intact. ENT: External nose and ear normal in appearance. NECK: No JVD. No meningismus. No thyromegaly. Supple. Trachea midline RESP: Normal respiratory effort. Symmetric rise. CARDIAC: Tachycardic. regular rhytm. . ABDOMEN: Soft. Nondistended. MSK: Normal muscle tone, without rigidity. . . Midline low lumbar back pain. SKIN: Warm and dry. NEUROLOGIC: Alert, oriented x3. Washington Evans MD Apr 02, 2020 07:31
--- NOTE | 2020-04-02 07:50 | NUR ---
NURSE NOTES: Received AM report, patient is in the bed alert and awake.respiration is even and unlabored with O2 @2l/min inplace via NC. no acute distress noted during AM rounds. call light is within reach, will follow plan of care.
[2020-04-02 08:00] VITALS: BP 130/93
[2020-04-02] MEDS: Cyclobenzaprine 10mg Tab ORAL SCH ×3 (09:20→17:08)
--- NOTE | 2020-04-02 09:24 | General Progress Note ---
Assessment/Plan Assessment/Plan: (1) Sickle cell disease (2) Sickle cell crisis (3) Intractable pain Patient will be continued on Dilaudid and [place] D/w Dr. Heard and he concurred. Subjective Date patient seen: Apr 02, 2020 Time patient seen: 08:30 - am Allergies: Coded Allergies: No Known Allergies (Unverified , 02/06/20) Subjective CONST: No fevers or chills, No night sweats PULMONARY: No productive cough, No shortness of breath CARDIAC: No chest pain, No palpitations GI: No vomiting, No diarrhea , No melena or BRBPR : No dysuria, No hematuria, No discharge NEURO: No new_focal weakness or numbness, No confusion, No vision changes SUBJECTIVE: Patient in bed and reports continued pain which has been severe however tolerated on the Dilaudid. He has no new complaints at this time. Objective Last 24 Hour Vital Signs Date Time Temp Pulse Resp B/P (MAP) Pulse Ox O2 Delivery O2 Flow Rate FiO2 04/02/20 08:00 98.1 103 17 130/93 (105) 100 04/02/20 04:00 97.7 100 16 125/86 (99) 100 04/02/20 00:00 97.8 96 16 120/88 (99) 100 04/01/20 21:16 108 112/73 04/01/20 21:00 Nasal Cannula 2.0 04/01/20 20:00 97.5 108 16 112/73 (86) 98 04/01/20 17:45 97.6 04/01/20 16:00 98.4 108 18 123/89 (100) 97 04/01/20 12:00 98.5 114 20 124/80 (95) 99 Intake and Output 04/01/20 04/02/20 19:00 07:00 Intake Total 200 ml Output Total 550 ml Balance -350 ml Intake Oral 200 ml Output Urine Total 550 ml Laboratory Tests 04/02/20 08:25: Hepatitis A IgM Antibody [Pending], Hepatitis B Surface Antigen [Pending], Hepatitis B Core IgM Antibody [Pending], Hepatitis C Antibody [Pending], HIV (1& 2) Antibody Rapid Negative Height (Feet): 5 Height (Inches): 9.00 Weight (Pounds): 169 Objective GENERAL: Awake alert nontoxic, no acute distress EYES: Extraocular muscles are intact. ENT: External nose and ear normal in appearance. NECK: No JVD. No meningismus. No thyromegaly. Supple. Trachea midline RESP: Normal respiratory effort. Symmetric rise. CARDIAC: Regular rhythm. . ABDOMEN: Soft. Nondistended. MSK: Normal muscle tone, without rigidity. . . Midline low lumbar back pain. SKIN: Warm and dry. NEUROLOGIC: Alert, oriented x3. Eduardo Manuel Apr 02, 2020 09:24
[2020-04-02 12:00] VITALS: BP 125/81
[2020-04-02 16:00] VITALS: BP 117/72
--- NOTE | 2020-04-02 16:02 | NUR ---
CASE MANAGEMENT: INITIAL REVIEW 04/02/20 SI:SICKLE CELL CRISIS 98.2 101 18 125/81 100% ON 2L NC IS:IV DILAUDID Q2HR/PRN IV NEURONTIN PO TID NORVASC PO BID PROTONIX PO QD \: 3E MED SURG UNIT DCP: HOME WHEN STABLE PLAN: SICKLE CELL SCREEN~+ ELECTROPHORESIS SERUM ~IN PROCESS HAPTOGLOBIN < 10 CONT PAIN MANAGEMENT ~PAIN UNCONTROLLED
--- NOTE | 2020-04-02 16:23 | NUR ---
*-* INSURANCE *-* UPDATED CLINICALS AND REVIEWS HAVE BEEN FAXED TO: SHANTEL VERMA P:[phone] F:[phone]
[2020-04-02] MEDS: Flonase Nasal Inhaler 16gm NASAL SCH (17:53)
--- NOTE | 2020-04-02 19:35 | NUR ---
NURSE HAND-OFF: Important Events on Shift: CONTINUOUS PAIN Patient Status: ALERT AND AWAKE Diet: REGULAR Pending Orders: N/A Pending Results/Labs:N/A Pending MD notification:N/A Latest Vital Signs: Temperature 97.8 , Pulse 101 , B/P 117 /72 , Respiratory Rate 18 , O2 SAT 100 , Nasal Cannula, O2 Flow Rate 2.0 . Vital Sign Comment: N/A Latest Negrete Fall Score: 45 Fall Risk: High Risk Safety Measures: Call light Within Reach, Bed Alarm Zone 1, Side Rails Side Rails x2, Bed position Low and Locked. Fall Precautions: Yellow Socks Yellow Gown Door Sign Patient Fall Education Report given to FRANCIS.
--- NOTE | 2020-04-02 19:45 | NUR ---
NURSE NOTES: Received patient and report from MURIEL Valenzuela. Patient was alert and oriented x4 with no s/s of acute distress. c/o 8/10 pain, will give pain meds when time. IV site clean dry and intact and saline locked. Plan of care discussed.
--- NOTE | 2020-04-02 20:58 | General Progress Note ---
Assessment/Plan Problem List: (1) DJD (degenerative joint disease) ICD Codes: M19.90 - Unspecified osteoarthritis, unspecified site SNOMED: 476050771 (2) Low back pain ICD Codes: M54.5 - Low back pain SNOMED: 042606978 (3) Sickle cell disease ICD Codes: D57.1 - Sickle-cell disease without crisis SNOMED: 051364992 (4) Sickle cell crisis ICD Codes: D57.00 - Hb-SS disease with crisis, unspecified SNOMED: 281658287 (5) History of hypertension ICD Codes: Z86.79 - Personal history of other diseases of the circulatory system SNOMED: 519504398 Status: progressing Assessment/Plan: afebrile djd sick cell crisis is improving lbp afebrile Subjective ROS Limited/Unobtainable: Yes Allergies: Coded Allergies: No Known Allergies (Unverified , 02/06/20) Objective Last 24 Hour Vital Signs Date Time Temp Pulse Resp B/P (MAP) Pulse Ox O2 Delivery O2 Flow Rate FiO2 04/02/20 20:11 91 126/88 04/02/20 16:00 97.8 101 18 117/72 (87) 100 04/02/20 12:00 98.2 101 18 125/81 (96) 100 04/02/20 09:20 103 130/93 04/02/20 09:00 Nasal Cannula 2.0 04/02/20 08:00 98.1 103 17 130/93 (105) 100 04/02/20 04:00 97.7 100 16 125/86 (99) 100 04/02/20 00:00 97.8 96 16 120/88 (99) 100 04/01/20 21:16 108 112/73 04/01/20 21:00 Nasal Cannula 2.0 Intake and Output 04/01/20 04/02/20 19:00 07:00 Intake Total 200 ml Output Total 550 ml Balance -350 ml Intake Oral 200 ml Output Urine Total 550 ml Laboratory Tests 04/02/20 08:25: Hepatitis A IgM Antibody [Pending], Hepatitis B Surface Antigen [Pending], Hepatitis B Core IgM Antibody [Pending], Hepatitis C Antibody [Pending], HIV (1& 2) Antibody Rapid Negative Height (Feet): 5 Height (Inches): 9.00 Weight (Pounds): 169 Hadadz,Ali MD Apr 02, 2020 20:58
[2020-04-02 21:00] VITALS: BP 126/88
[2020-04-03] VITALS: BP 133/76
[2020-04-03] MEDS: HYDROmorphone 1mg/ml Carpuject IVP PRN ×6 (00:19→12:03)
[2020-04-03 04:00] VITALS: BP 125/85
[2020-04-03 06:41] LABS: BASOPHILS % (AUTO) 1.1 % (0.0-2.0); EOSINOPHILS % (AUTO) 2.2 % (0.0-3.0); HEMATOCRIT 37.6 % (42.0-52.0); HEMOGLOBIN 11.4 G/DL (14.2-18.0); MEAN CORPUSCULAR VOLUME 68 FL (80-99); MONOCYTES % (AUTO) 6.1 % (1.0-10.0); NEUTROPHILS % (AUTO) 60.6 % (45.0-75.0); PLATELET COUNT 152 K/UL (150-450); RED CELL DISTRIBUTION WIDTH 16.7 % (11.6-14.8); WHITE BLOOD COUNT 6.9 K/UL (4.8-10.8)
--- NOTE | 2020-04-03 07:33 | NUR ---
NURSE HAND-OFF: Important Events on Shift:Pain management Patient Status: stable Diet: regular Pending Orders: NA Pending Results/Labs:NA Pending MD notification:NA Latest Vital Signs: Temperature 98.3 , Pulse 74 , B/P 94 /63 , Respiratory Rate 16 , O2 SAT 98 , Room Air, O2 Flow Rate 3.0 . Vital Sign Comment: Stable throughout shift, HR runs in the 90s Latest Negrete Fall Score: 35 Fall Risk: Medium Risk Safety Measures: Call light , Bed Alarm Zone 1, Side Rails Side Rails x2, Bed position Low and Locked. Fall Precautions: Yellow Socks Patient Fall Education Report given to MURIEL Julio.
[2020-04-03 08:00] VITALS: BP 127/89
--- NOTE | 2020-04-03 08:10 | NUR ---
NURSE NOTES: received patient in bed, awake, alert, oriented, no complaint of pain at the moment. On room air, no sign of respiratory distress noted. IV acces on the RAC, saline locked. Bed locked at the lowest position possible, call light within easy reach, siderails up x2. Will continue to monitor patient and follow up with the POC.
[2020-04-03] MEDS: Cyclobenzaprine 10mg Tab ORAL SCH ×4 (08:30→18:14)
--- NOTE | 2020-04-03 08:38 | Hematology/Onc Progress Note ---
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 --> pain management, pain service --> ivfs have been given --> imaging noted as well --> HOLD off hydrea for now, may need it as outpatient # Thrombocytopenia rule out reactive process --> hep and hiv ordered --> smear reviewed # Diffuse osteosclerosis, consistent with known history of sickle cell disease --> Patient was given Rocephin and vancomycin multiple doses Dilaudid for IV pain control. Also received IV fluids and oxygen # Low back pain --> imaging reviewed # Hepatosplenomegaly # Renal infarct # Kidney stone # DJD (degenerative joint disease) # Neural foraminal stenosis of lumbar spine # Renal cyst # Tachycardia due to hypovolemia Appreciate consultation and tamiko RN Subjective HEENT: Denies: no symptoms, eye pain, blurred vision, tearing, double vision, ear pain, ear discharge, nose pain, nose congestion, throat pain, throat swelling, mouth pain, mouth swelling, other Cardiovascular: Denies: no symptoms, chest pain, edema, irregular heart rate, lightheadedness, palpitations, syncope, other Respiratory: Denies: no symptoms, cough, shortness of breath, SOB with excertion, SOB at rest, sputum, wheezing, other Gastrointestinal/Abdominal: Denies: no symptoms, abdomen distended, abdominal pain, black stools, tarry stools, blood in stool, constipated, diarrhea, difficulty swallowing, nausea, poor appetite, poor fluid intake, rectal bleeding , vomiting, other Genitourinary: Denies: no symptoms, burning, discharge, frequency, flank pain, hematuria, incontinence, pain, urgency, other Neurologic/Psychiatric: Denies: no symptoms, anxiety, depressed, emotional problems, headache, numbness, paresthesia, pre-existing deficit, seizure, tingling, tremors, weakness, other Endocrine: Denies: no symptoms, excessive sweating, flushing, intolerance to cold, intolerance to heat, increased hunger, increased thirst, increased urine, unexplained weight gain, unexplained weight loss, other Hematologic/Lymphatic: Denies: no symptoms, anemia, easy bleeding, easy bruising, adenopathy, other Allergies: Coded Allergies: No Known Allergies (Unverified , 02/06/20) Subjective 04/02 using incentive spirometry, no bleeding, labs noted, less pain 04/03 feeling better, sickle cell screen+, no major changes, no bleeding, hapto < 10 Objective Objective Current Medications Medications (Trade) Dose Ordered Sig/Emily Route PRN Reason Start Time Stop Time Status Last Admin Dose Admin Acetaminophen (Tylenol) 650 mg Q4H PRN ORAL Mild Pain (Pain Scale 1-3) 03/31/20 14:00 04/30/20 13:59 Acetaminophen/ Hydrocodone Bitart ([place] 10/325) 1 tab Q4H PRN ORAL Moderate Pain (Pain Scale 4-6) 04/01/20 09:00 04/08/20 08:59 Amlodipine Besylate (Norvasc) 5 mg Q12HR ORAL 03/31/20 21:00 04/30/20 20:59 04/02/20 20:11 Cyclobenzaprine HCl (Flexeril) 10 mg THREE TIMES A DAY ORAL 03/31/20 18:00 04/07/20 17:59 04/02/20 17:08 Fluticasone Propionate (Flonase) 2 spray DAILY NASAL 04/01/20 09:00 05/01/20 08:59 04/02/20 17:53 Folic Acid (Folate) 1 mg DAILY ORAL 04/01/20 09:00 05/01/20 08:59 04/02/20 09:20 Gabapentin (Neurontin) 300 mg THREE TIMES A DAY ORAL 03/31/20 18:00 04/30/20 17:59 04/02/20 17:08 Hydromorphone HCl (Dilaudid) 1.5 mg Q2H PRN IVP Severe Pain (Pain Scale 7-10) 04/01/20 09:00 04/07/20 20:11 04/03/20 06:10 Ondansetron HCl (Zofran ODT) 4 mg Q6H PRN ORAL Nausea & Vomiting 03/31/20 16:32 04/30/20 16:31 04/01/20 03:23 Pantoprazole (Protonix) 40 mg DAILY ORAL 04/01/20 09:00 05/01/20 08:59 04/02/20 09:19 Last 24 Hour Vital Signs Date Time Temp Pulse Resp B/P (MAP) Pulse Ox O2 Delivery O2 Flow Rate FiO2 04/03/20 08:00 97.9 102 18 127/89 (102) 95 04/03/20 04:00 98.0 97 18 125/85 (98) 97 04/03/20 00:00 97.0 99 19 133/76 (95) 97 04/02/20 21:00 Nasal Cannula 2.0 04/02/20 21:00 98.4 91 18 126/88 (101) 97 04/02/20 20:11 91 126/88 04/02/20 16:00 97.8 101 18 117/72 (87) 100 04/02/20 12:00 98.2 101 18 125/81 (96) 100 04/02/20 09:20 103 130/93 04/02/20 09:00 Nasal Cannula 2.0 04/02/20 08:00 98.1 103 17 130/93 (105) 100 04/02/20 04:00 97.7 100 16 125/86 (99) 100 04/02/20 00:00 97.8 96 16 120/88 (99) 100 04/01/20 21:16 108 112/73 04/01/20 21:00 Nasal Cannula 2.0 04/01/20 20:00 97.5 108 16 112/73 (86) 98 04/01/20 17:45 97.6 04/01/20 16:00 98.4 108 18 123/89 (100) 97 04/01/20 12:00 98.5 114 20 124/80 (95) 99 04/01/20 09:00 Nasal Cannula 3.0 Labs Test 03/31/20 10:23 03/31/20 10:25 03/31/20 11:40 04/01/20 08:50 White Blood Count 4.8 K/UL (4.8-10.8) 5.2 K/UL (4.8-10.8) Red Blood Count 5.38 M/UL (4.70-6.10) 5.34 M/UL (4.70-6.10) Hemoglobin 11.3 G/DL (14.2-18.0) 11.1 G/DL (14.2-18.0) Hematocrit 37.5 % (42.0-52.0) 36.7 % (42.0-52.0) Mean Corpuscular Volume 70 FL (80-99) 69 FL (80-99) Mean Corpuscular Hemoglobin 21.0 PG (27.0-31.0) 20.8 PG (27.0-31.0) Mean Corpuscular Hemoglobin Concent 30.1 G/DL (32.0-36.0) 30.3 G/DL (32.0-36.0) Red Cell Distribution Width 17.0 % (11.6-14.8) 16.8 % (11.6-14.8) Platelet Count 170 K/UL (150-450) 116 K/UL (150-450) Mean Platelet Volume 7.7 FL (6.5-10.1) 7.2 FL (6.5-10.1) Neutrophils (%) (Auto) 73.0 % (45.0-75.0) 77.5 % (45.0-75.0) Lymphocytes (%) (Auto) 20.4 % (20.0-45.0) 16.9 % (20.0-45.0) Monocytes (%) (Auto) 3.9 % (1.0-10.0) 4.4 % (1.0-10.0) Eosinophils (%) (Auto) 1.4 % (0.0-3.0) 0.6 % (0.0-3.0) Basophils (%) (Auto) 1.3 % (0.0-2.0) 0.5 % (0.0-2.0) Reticulocyte Count 2.3 % (0.5-2.0) Haptoglobin <10 mg/dL (23-355) Prothrombin Time 11.4 SEC (9.30-11.50) Prothromb Time International Ratio 1.0 (0.9-1.1) Activated Partial Thromboplast Time 27 SEC (23-33) Sodium Level 141 MMOL/L (136-145) Potassium Level 3.8 MMOL/L (3.5-5.1) Chloride Level 105 MMOL/L (98-107) Carbon Dioxide Level 24 MMOL/L (21-32) Anion Gap 12 mmol/L (5-15) Blood Urea Nitrogen 11 mg/dL (7-18) Creatinine 1.1 MG/DL (0.55-1.30) Estimat Glomerular Filtration Rate > 60 mL/min (>60) Glucose Level 137 MG/DL (74-106) Calcium Level 8.9 MG/DL (8.5-10.1) Total Bilirubin 0.9 MG/DL (0.2-1.0) Aspartate Amino Transf (AST/SGOT) 20 U/L (15-37) Alanine Aminotransferase (ALT/SGPT) 22 U/L (12-78) Alkaline Phosphatase 58 U/L (46-116) Lactate Dehydrogenase 368 U/L (81-234) Total Protein 8.5 G/DL (6.4-8.2) Albumin 4.4 G/DL (3.4-5.0) Globulin 4.1 g/dL Albumin/Globulin Ratio 1.1 (1.0-2.7) Troponin I 0.000 ng/mL (0.000-0.056) Urine Color Pale yellow Urine Appearance Clear Urine pH 7 (4.5-8.0) Urine Specific [place] 1.010 (1.005-1.035) Urine Protein Negative (NEGATIVE) Urine Glucose (UA) Negative (NEGATIVE) Urine Ketones Negative (NEGATIVE) Urine Blood Negative (NEGATIVE) Urine Nitrite Negative (NEGATIVE) Urine Bilirubin Negative (NEGATIVE) Urine Urobilinogen Normal MG/DL (0.0-1.0) Urine Leukocyte Esterase Negative (NEGATIVE) Sickle Cell Screen Positive (Negative) Ferritin 1250 NG/ML (8-388) Test 04/02/20 08:25 04/03/20 05:15 Hepatitis A IgM Antibody Negative (Negative) Hepatitis B Surface Antigen Negative (Negative) Hepatitis B Core IgM Antibody Negative (Negative) Hepatitis C Antibody <0.1 s/co ratio HIV (1&2) Antibody Rapid Negative (NEGATIVE) White Blood Count 6.9 K/UL (4.8-10.8) Red Blood Count 5.50 M/UL (4.70-6.10) Hemoglobin 11.4 G/DL (14.2-18.0) Hematocrit 37.6 % (42.0-52.0) Mean Corpuscular Volume 68 FL (80-99) Mean Corpuscular Hemoglobin 20.8 PG (27.0-31.0) Mean Corpuscular Hemoglobin Concent 30.3 G/DL (32.0-36.0) Red Cell Distribution Width 16.7 % (11.6-14.8) Platelet Count 152 K/UL (150-450) Mean Platelet Volume 6.2 FL (6.5-10.1) Neutrophils (%) (Auto) 60.6 % (45.0-75.0) Lymphocytes (%) (Auto) 30.0 % (20.0-45.0) Monocytes (%) (Auto) 6.1 % (1.0-10.0) Eosinophils (%) (Auto) 2.2 % (0.0-3.0) Basophils (%) (Auto) 1.1 % (0.0-2.0) Height (Feet): 5 Height (Inches): 9.00 Weight (Pounds): 169 Objective Physical Exam: GENERAL: Awake alert nontoxic, no acute distress EYES: Extraocular muscles are intact. ENT: External nose and ear normal in appearance. NECK: No JVD. No meningismus. No thyromegaly. Supple. Trachea midline RESP: Normal respiratory effort. Symmetric rise. CARDIAC: Tachycardic. regular rhytm. . ABDOMEN: Soft. Nondistended. MSK: Normal muscle tone, without rigidity. . . Midline low lumbar back pain. SKIN: Warm and dry. NEUROLOGIC: Alert, oriented x3. Washington Evans MD Apr 03, 2020 08:38
[2020-04-03] MEDS: Flonase Nasal Inhaler 16gm NASAL SCH (08:54)
--- NOTE | 2020-04-03 09:42 | General Progress Note ---
Assessment/Plan Assessment/Plan: (1) Sickle cell disease (2) Sickle cell crisis (3) Intractable pain Patient will be continued on Dilaudid reduced to 1mg IV Q2H PRN and [place] D/w Dr. Heard and he concurred. Subjective Date patient seen: Apr 03, 2020 Time patient seen: 08:30 - am Allergies: Coded Allergies: No Known Allergies (Unverified , 02/06/20) Subjective CONST: No fevers or chills, No night sweats PULMONARY: No productive cough, No shortness of breath CARDIAC: No chest pain, No palpitations GI: No vomiting, No diarrhea , No melena or BRBPR : No dysuria, No hematuria, No discharge NEURO: No new_focal weakness or numbness, No confusion, No vision changes SUBJECTIVE: Patient reports pain has been at a moderate level while on the Dialudid using 12 doses in the last 24hrs. Was advised to use oral medication he seems to understand. Discussed with patient about reduction if the Dialudid he seems to understand Objective Last 24 Hour Vital Signs Date Time Temp Pulse Resp B/P (MAP) Pulse Ox O2 Delivery O2 Flow Rate FiO2 04/03/20 08:30 102 127/89 04/03/20 08:00 97.9 102 18 127/89 (102) 95 04/03/20 04:00 98.0 97 18 125/85 (98) 97 04/03/20 00:00 97.0 99 19 133/76 (95) 97 04/02/20 21:00 Nasal Cannula 2.0 04/02/20 21:00 98.4 91 18 126/88 (101) 97 04/02/20 20:11 91 126/88 04/02/20 16:00 97.8 101 18 117/72 (87) 100 04/02/20 12:00 98.2 101 18 125/81 (96) 100 Laboratory Tests 04/03/20 05:15: White Blood Count 6.9, Red Blood Count 5.50, Hemoglobin 11.4L, Hematocrit 37.6L , Mean Corpuscular Volume 68L, Mean Corpuscular Hemoglobin 20.8L, Mean Corpuscular Hemoglobin Concent 30.3L, Red Cell Distribution Width 16.7H, Platelet Count 152, Mean Platelet Volume 6.2L, Neutrophils (%) (Auto) 60.6, Lymphocytes (%) (Auto) 30.0, Monocytes (%) (Auto) 6.1, Eosinophils (%) (Auto) 2.2, Basophils (%) (Auto) 1.1, Lactate Dehydrogenase 727H Height (Feet): 5 Height (Inches): 9.00 Weight (Pounds): 169 Objective GENERAL: Awake alert nontoxic, no acute distress EYES: Extraocular muscles are intact. ENT: External nose and ear normal in appearance. NECK: No JVD. No meningismus. No thyromegaly. Supple. Trachea midline RESP: Normal respiratory effort. Symmetric rise. CARDIAC: Regular rhythm. . ABDOMEN: Soft. Nondistended. MSK: Normal muscle tone, without rigidity. . . Midline low lumbar back pain. SKIN: Warm and dry. NEUROLOGIC: Alert, oriented x3. Eduardo Manuel Apr 03, 2020 09:42
[2020-04-03 12:00] VITALS: BP 130/89
--- NOTE | 2020-04-03 14:26 | NUR ---
[employer] NOTE SW met w/ pt and confirmed that he is willing to return to [facility] if he is accepted back. PT presents as A&O4x, somewhat irritable and guarded. PT denies being homelessness, stating that he was staying w/ the family, didn't have permanent residence. Pt receives GR and food stamp. PT does not share any concern/needs at this time. SW will fax updated clinicals to [facility] ([email or web address] and [email or web address])when DC date is known. Pat Mendiola ([facility] [phone] ext.[phone])
[2020-04-03 16:00] VITALS: BP 140/98
--- NOTE | 2020-04-03 17:13 | NUR ---
CASE MANAGEMENT: INITIAL REVIEW 04/02/20 SI:SICKLE CELL CRISIS 98.1 105 18 140/98 98% ON 2L NC LDH 727~INCREASING IS:IV DILAUDID Q2HR/PRN IV NEURONTIN PO TID NORVASC PO BID PROTONIX PO QD \: 3E MED SURG UNIT DCP: HOME WHEN STABLE PLAN: CONT PAIN MANAGEMENT ~PAIN UNCONTROLLED
--- NOTE | 2020-04-03 17:21 | NUR ---
*-* INSURANCE *-* UPDATED CLINICALS AND REVIEWS HAVE BEEN FAXED TO: SHANTEL VERMA P:[phone] F:[phone]
--- NOTE | 2020-04-03 19:35 | NUR ---
NURSE NOTES: Received report from Nori LLAMAS. Rounding is done. Patient is a/o x4. Patient stated that he has pain, but he doesn't want pain medication. Breathing is even and unlabored. No any distress noted at this time. IV site is intact and patient. Bed is on alarm, locked, and lowest position. Call light within reach. Will continue to monitor.
--- NOTE | 2020-04-03 19:50 | NUR ---
NURSE HAND-OFF: Important Events on Shift:[] Patient Status: [stable] Diet: [regular] Pending Orders: [CBC] Pending Results/Labs:[] Pending MD notification:[] Latest Vital Signs: Temperature 98.1 , Pulse 105 , B/P 140 /98 , Respiratory Rate 18 , O2 SAT 98 , Nasal Cannula, O2 Flow Rate 2.0 . Vital Sign Comment: [] Latest Negrete Fall Score: 45 Fall Risk: High Risk Safety Measures: Call light Within Reach, Bed Alarm Zone 1, Side Rails Side Rails x2, Bed position Low and Locked. Fall Precautions: Yellow Socks Yellow Gown Door Sign Patient Fall Education Report given to [MURIEL Vallejo].
[2020-04-03 20:00] VITALS: BP 125/92
--- NOTE | 2020-04-03 21:13 | General Progress Note ---
Assessment/Plan Problem List: (1) DJD (degenerative joint disease) ICD Codes: M19.90 - Unspecified osteoarthritis, unspecified site SNOMED: 770691054 (2) Low back pain ICD Codes: M54.5 - Low back pain SNOMED: 662503106 (3) Sickle cell disease ICD Codes: D57.1 - Sickle-cell disease without crisis SNOMED: 177508293 (4) Sickle cell crisis ICD Codes: D57.00 - Hb-SS disease with crisis, unspecified SNOMED: 463179498 (5) History of hypertension ICD Codes: Z86.79 - Personal history of other diseases of the circulatory system SNOMED: 123116724 Status: progressing Assessment/Plan: afebrile no acute events sick cell crisis is improving Subjective ROS Limited/Unobtainable: Yes Allergies: Coded Allergies: No Known Allergies (Unverified , 02/06/20) Objective Last 24 Hour Vital Signs Date Time Temp Pulse Resp B/P (MAP) Pulse Ox O2 Delivery O2 Flow Rate FiO2 04/03/20 20:24 112 125/92 04/03/20 20:00 99.9 112 19 125/92 (103) 99 04/03/20 16:00 98.1 105 18 140/98 (112) 98 04/03/20 12:33 97.9 04/03/20 12:00 98.7 100 18 130/89 (103) 96 04/03/20 09:14 97.9 04/03/20 09:00 Nasal Cannula 2.0 04/03/20 08:30 102 127/89 04/03/20 08:00 97.9 102 18 127/89 (102) 95 04/03/20 04:00 98.0 97 18 125/85 (98) 97 04/03/20 00:00 97.0 99 19 133/76 (95) 97 Laboratory Tests 04/03/20 05:15: White Blood Count 6.9, Red Blood Count 5.50, Hemoglobin 11.4L, Hematocrit 37.6L , Mean Corpuscular Volume 68L, Mean Corpuscular Hemoglobin 20.8L, Mean Corpuscular Hemoglobin Concent 30.3L, Red Cell Distribution Width 16.7H, Platelet Count 152, Mean Platelet Volume 6.2L, Neutrophils (%) (Auto) 60.6, Lymphocytes (%) (Auto) 30.0, Monocytes (%) (Auto) 6.1, Eosinophils (%) (Auto) 2.2, Basophils (%) (Auto) 1.1, Lactate Dehydrogenase 727H Height (Feet): 5 Height (Inches): 9.00 Weight (Pounds): 169 Jayla Campbell MD Apr 03, 2020 21:13
[2020-04-03] MEDS: HYDROcodone/Acetamin 10/325 tab ORAL PRN (22:10)
[2020-04-04] VITALS (7 sets, daily range): BP systolic 116–129; BP diastolic 68–90
[2020-04-04] MEDS: HYDROcodone/Acetamin 10/325 tab ORAL PRN ×4 (05:44→21:49)
--- NOTE | 2020-04-04 07:29 | NUR ---
NURSE HAND-OFF: Important Events on Shift: PAIN CONTROL Patient Status: Diet: Pending Orders: Pending Results/Labs: Pending MD notification: Latest Vital Signs: Temperature 98.6 , Pulse 106 , B/P 121 /90 , Respiratory Rate 19 , O2 SAT 100 , Nasal Cannula, O2 Flow Rate 2.0 . Vital Sign Comment: Latest Negrete Fall Score: 45 Fall Risk: High Risk Safety Measures: Call light Within Reach, Bed Alarm Zone 1, Side Rails Side Rails x2, Bed position Low and Locked. Fall Precautions: Yellow Socks Yellow Gown Door Sign Patient Fall Education Report given to .
--- NOTE | 2020-04-04 07:30 | NUR ---
NURSE NOTES: Handoff received from Yoni LLAMAS. Patient is awake and alert, no signs of distress noted. Patient states that his pain is better from a few days ago. Patient's right AC 20g is intact and asymptomatic, saline locked. Bed is low and locked, side rails up x2, call light is within reach.
[2020-04-04 07:33] LABS: EOSINOPHILS % (AUTO) 2.6 % (0.0-3.0); HEMATOCRIT 38.7 % (42.0-52.0); HEMOGLOBIN 11.8 G/DL (14.2-18.0); MEAN CORPUSCULAR VOLUME 68 FL (80-99); MONOCYTES % (AUTO) 5.2 % (1.0-10.0); NEUTROPHILS % (AUTO) 62.2 % (45.0-75.0); PLATELET COUNT 211 K/UL (150-450); RED BLOOD COUNT 5.65 M/UL (4.70-6.10); RED CELL DISTRIBUTION WIDTH 16.6 % (11.6-14.8); WHITE BLOOD COUNT 6.6 K/UL (4.8-10.8)
[2020-04-04] MEDS: Cyclobenzaprine 10mg Tab ORAL SCH ×3 (08:41→17:42)
[2020-04-04] MEDS: Flonase Nasal Inhaler 16gm NASAL SCH (08:43)
--- NOTE | 2020-04-04 14:57 | NUR ---
CASE MANAGEMENT:REVIEW SI;SICKLE CELL CRISIS 98.6 106 19 121/90 98% 2L NC IS;DILAUDID IV Q2 PRN FLONASE NASAL QD PROTONIX PO QD NORVASC PO Q12 GABAPENTIN PO TID 3E MED SURG STATUS DCP;FROM [facility]
--- NOTE | 2020-04-04 17:19 | NUR ---
*-* INSURANCE *-* UPDATED CLINICALS AND REVIEWS HAVE BEEN FAXED TO: SHANTEL VERMA P:[phone] F:[phone]
--- NOTE | 2020-04-04 19:27 | NUR ---
NURSE HAND-OFF: Important Events on Shift:[discharge for tmw AM] Patient Status: stable Diet: regular Pending Orders: Pending Results/Labs:[] Pending MD notification: Latest Vital Signs: Temperature 97.7 , Pulse 106 , B/P 121 /68 , Respiratory Rate 20 , O2 SAT 100 , Nasal Cannula, O2 Flow Rate 2.0 . Vital Sign Comment: Latest Negrete Fall Score: 45 Fall Risk: High Risk Safety Measures: Call light Within Reach, Bed Alarm Zone 1, Side Rails Side Rails x2, Bed position Low and Locked. Fall Precautions: Yellow Socks Yellow Gown Door Sign Patient Fall Education Report given to Marilou LLAMAS.
--- NOTE | 2020-04-04 19:42 | NUR ---
NURSE NOTES: Patient is in bed, awake and alert x4. On room air with no signs of distress or SOB. IV intact and patent. Bed locked and in lowest position. Call light within easy reach. Will continue plan of care.
--- NOTE | 2020-04-04 21:23 | General Progress Note ---
Assessment/Plan Problem List: (1) DJD (degenerative joint disease) ICD Codes: M19.90 - Unspecified osteoarthritis, unspecified site SNOMED: 714408579 (2) Low back pain ICD Codes: M54.5 - Low back pain SNOMED: 878007522 (3) Sickle cell disease ICD Codes: D57.1 - Sickle-cell disease without crisis SNOMED: 640739944 (4) Sickle cell crisis ICD Codes: D57.00 - Hb-SS disease with crisis, unspecified SNOMED: 965330175 (5) History of hypertension ICD Codes: Z86.79 - Personal history of other diseases of the circulatory system SNOMED: 352315708 Status: progressing Assessment/Plan: dc in am h/h stable sick cell crisis is improving Subjective ROS Limited/Unobtainable: Yes Allergies: Coded Allergies: No Known Allergies (Unverified , 02/06/20) Objective Last 24 Hour Vital Signs Date Time Temp Pulse Resp B/P (MAP) Pulse Ox O2 Delivery O2 Flow Rate FiO2 04/04/20 20:58 Nasal Cannula 2.0 04/04/20 19:45 97.7 106 19 129/83 (98) 99 04/04/20 18:11 97.7 04/04/20 16:00 98.2 106 20 121/68 (85) 100 04/04/20 12:00 97.7 104 18 119/73 (88) 98 04/04/20 09:00 Nasal Cannula 2.0 04/04/20 08:42 102 116/77 04/04/20 08:00 98.0 102 18 116/77 (90) 100 04/04/20 04:00 98.6 106 19 121/90 (100) 100 04/04/20 00:00 98.2 112 19 116/80 (92) 98 Intake and Output 04/03/20 04/04/20 19:00 07:00 Intake Total 240 ml 820 ml Output Total 680 ml Balance 240 ml 140 ml Intake Oral 240 ml 820 ml Output Urine Total 680 ml # Voids 2 2 Laboratory Tests 04/04/20 05:25: White Blood Count 6.6, Red Blood Count 5.65, Hemoglobin 11.8L, Hematocrit 38.7L , Mean Corpuscular Volume 68L, Mean Corpuscular Hemoglobin 20.9L, Mean Corpuscular Hemoglobin Concent 30.5L, Red Cell Distribution Width 16.6H, Platelet Count 211, Mean Platelet Volume 8.0, Neutrophils (%) (Auto) 62.2, Lymphocytes (%) (Auto) 29.0, Monocytes (%) (Auto) 5.2, Eosinophils (%) (Auto) 2.6, Basophils (%) (Auto) 1.0 Height (Feet): 5 Height (Inches): 9.00 Weight (Pounds): 169 Neck: supple Cardiovascular: normal rate Respiratory/Chest: lungs clear Abdomen: soft Jayla Campbell MD Apr 04, 2020 21:23
[2020-04-05 04:00] VITALS: BP 123/71
[2020-04-05] MEDS: HYDROcodone/Acetamin 10/325 tab ORAL PRN (05:27)
[2020-04-05] MEDS: HYDROmorphone 1mg/ml Carpuject IVP PRN ×8 (06:33→22:49)
--- NOTE | 2020-04-05 06:51 | NUR ---
NURSE HAND-OFF: Important Events on Shift: N/A Patient Status: Stable Diet: Regular Pending Orders: Discharge Pending Results/Labs: CBC Pending MD notification: N/A Latest Vital Signs: Temperature 98.0 , Pulse 111 , B/P 123 /71 , Respiratory Rate 18 , O2 SAT 96 , Nasal Cannula, O2 Flow Rate 2.0 . Vital Sign Comment: Latest Negrete Fall Score: 45 Fall Risk: High Risk Safety Measures: Call light Within Reach, Bed Alarm Zone 1, Side Rails Side Rails x2, Bed position Low and Locked. Fall Precautions: Yellow Socks Yellow Gown Door Sign Patient Fall Education Addendum: 04/05/20 at 0707 by DEBI AYALA RN Report given to MURIEL Diaz
--- NOTE | 2020-04-05 07:15 | NUR ---
NURSE NOTES: Handoff received from Marilou LLAMAS. Patient is awake and alert, no signs of distress noted. Patient is reporting 9/10 pain, states that he does not want to go home today because his pain has worsened. Patient states that this is because he has been getting up to use the restroom more often. Right AC IV is patent and asymptomatic, saline locked. Bed is low and locked, side rails up x2, call light is within reach.
--- NOTE | 2020-04-05 07:21 | Hematology/Onc Progress Note ---
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 --> pain management, pain service --> ivfs have been given --> imaging noted as well --> HOLD off hydrea for now, may need it as outpatient # Thrombocytopenia rule out reactive process --> hep and hiv ordered --> smear reviewed # Diffuse osteosclerosis, consistent with known history of sickle cell disease --> Patient was given Rocephin and vancomycin multiple doses Dilaudid for IV pain control. Also received IV fluids and oxygen # Low back pain --> imaging reviewed # Hepatosplenomegaly # Renal infarct # Kidney stone # DJD (degenerative joint disease) # Neural foraminal stenosis of lumbar spine # Renal cyst # Tachycardia due to hypovolemia Appreciate consultation and dw RN Subjective HEENT: Denies: no symptoms, eye pain, blurred vision, tearing, double vision, ear pain, ear discharge, nose pain, nose congestion, throat pain, throat swelling, mouth pain, mouth swelling, other Cardiovascular: Denies: no symptoms, chest pain, edema, irregular heart rate, lightheadedness, palpitations, syncope, other Gastrointestinal/Abdominal: Denies: no symptoms, abdomen distended, abdominal pain, black stools, tarry stools, blood in stool, constipated, diarrhea, difficulty swallowing, nausea, poor appetite, poor fluid intake, rectal bleeding , vomiting, other Genitourinary: Denies: no symptoms, burning, discharge, frequency, flank pain, hematuria, incontinence, pain, urgency, other Endocrine: Denies: no symptoms, excessive sweating, flushing, intolerance to cold, intolerance to heat, increased hunger, increased thirst, increased urine, unexplained weight gain, unexplained weight loss, other Hematologic/Lymphatic: Denies: no symptoms, anemia, easy bleeding, easy bruising, adenopathy, other Allergies: Coded Allergies: No Known Allergies (Unverified , 02/06/20) Subjective 04/02 using incentive spirometry, no bleeding, labs noted, less pain 9/11 feeling better, sickle cell screen+, no major changes, no bleeding, hapto < 10 04/05 still c/o of mild chest pain, abd pain as well, wants to stay another night Objective Objective Current Medications Medications (Trade) Dose Ordered Sig/Emily Route PRN Reason Start Time Stop Time Status Last Admin Dose Admin Acetaminophen (Tylenol) 650 mg Q4H PRN ORAL Mild Pain (Pain Scale 1-3) 03/31/20 14:00 04/30/20 13:59 Acetaminophen/ Hydrocodone Bitart ([place] 10/325) 1 tab Q4H PRN ORAL Moderate Pain (Pain Scale 4-6) 04/01/20 09:00 04/08/20 08:59 04/05/20 05:27 Amlodipine Besylate (Norvasc) 5 mg Q12HR ORAL 03/31/20 21:00 04/30/20 20:59 04/04/20 21:49 Cyclobenzaprine HCl (Flexeril) 10 mg THREE TIMES A DAY ORAL 03/31/20 18:00 04/07/20 17:59 04/03/20 18:14 Fluticasone Propionate (Flonase) 2 spray DAILY NASAL 04/01/20 09:00 05/01/20 08:59 04/04/20 08:43 Folic Acid (Folate) 1 mg DAILY ORAL 04/01/20 09:00 05/01/20 08:59 04/04/20 08:42 Gabapentin (Neurontin) 300 mg THREE TIMES A DAY ORAL 03/31/20 18:00 04/30/20 17:59 04/04/20 17:41 Hydromorphone HCl (Dilaudid) 1 mg Q2H PRN IVP Severe Pain (Pain Scale 7-10) 04/03/20 10:45 04/10/20 10:44 04/05/20 06:33 Ondansetron HCl (Zofran ODT) 4 mg Q6H PRN ORAL Nausea & Vomiting 03/31/20 16:32 04/30/20 16:31 04/01/20 03:23 Pantoprazole (Protonix) 40 mg DAILY ORAL 04/01/20 09:00 05/01/20 08:59 04/04/20 08:42 Last 24 Hour Vital Signs Date Time Temp Pulse Resp B/P (MAP) Pulse Ox O2 Delivery O2 Flow Rate FiO2 04/05/20 04:00 98.0 111 18 123/71 (88) 96 04/04/20 23:48 98.0 102 18 116/69 (85) 97 04/04/20 21:49 106 129/83 04/04/20 20:58 Nasal Cannula 2.0 04/04/20 19:45 97.7 106 19 129/83 (98) 99 04/04/20 18:11 97.7 04/04/20 16:00 98.2 106 20 121/68 (85) 100 04/04/20 12:00 97.7 104 18 119/73 (88) 98 04/04/20 09:00 Nasal Cannula 2.0 04/04/20 08:42 102 116/77 04/04/20 08:00 98.0 102 18 116/77 (90) 100 04/04/20 04:00 98.6 106 19 121/90 (100) 100 04/04/20 00:00 98.2 112 19 116/80 (92) 98 04/03/20 21:00 Nasal Cannula 2.0 04/03/20 20:24 112 125/92 04/03/20 20:00 99.9 112 19 125/92 (103) 99 04/03/20 16:00 98.1 105 18 140/98 (112) 98 04/03/20 12:33 97.9 04/03/20 12:00 98.7 100 18 130/89 (103) 96 04/03/20 09:14 97.9 04/03/20 09:00 Nasal Cannula 2.0 04/03/20 08:30 102 127/89 04/03/20 08:00 97.9 102 18 127/89 (102) 95 Labs Test 04/02/20 08:25 04/03/20 05:15 04/04/20 05:25 Hepatitis A IgM Antibody Negative (Negative) Hepatitis B Surface Antigen Negative (Negative) Hepatitis B Core IgM Antibody Negative (Negative) Hepatitis C Antibody <0.1 s/co ratio HIV (1&2) Antibody Rapid Negative (NEGATIVE) White Blood Count 6.9 K/UL (4.8-10.8) 6.6 K/UL (4.8-10.8) Red Blood Count 5.50 M/UL (4.70-6.10) 5.65 M/UL (4.70-6.10) Hemoglobin 11.4 G/DL (14.2-18.0) 11.8 G/DL (14.2-18.0) Hematocrit 37.6 % (42.0-52.0) 38.7 % (42.0-52.0) Mean Corpuscular Volume 68 FL (80-99) 68 FL (80-99) Mean Corpuscular Hemoglobin 20.8 PG (27.0-31.0) 20.9 PG (27.0-31.0) Mean Corpuscular Hemoglobin Concent 30.3 G/DL (32.0-36.0) 30.5 G/DL (32.0-36.0) Red Cell Distribution Width 16.7 % (11.6-14.8) 16.6 % (11.6-14.8) Platelet Count 152 K/UL (150-450) 211 K/UL (150-450) Mean Platelet Volume 6.2 FL (6.5-10.1) 8.0 FL (6.5-10.1) Neutrophils (%) (Auto) 60.6 % (45.0-75.0) 62.2 % (45.0-75.0) Lymphocytes (%) (Auto) 30.0 % (20.0-45.0) 29.0 % (20.0-45.0) Monocytes (%) (Auto) 6.1 % (1.0-10.0) 5.2 % (1.0-10.0) Eosinophils (%) (Auto) 2.2 % (0.0-3.0) 2.6 % (0.0-3.0) Basophils (%) (Auto) 1.1 % (0.0-2.0) 1.0 % (0.0-2.0) Lactate Dehydrogenase 727 U/L (81-234) Height (Feet): 5 Height (Inches): 9.00 Weight (Pounds): 169 Objective Physical Exam: GENERAL: Awake alert nontoxic, no acute distress EYES: Extraocular muscles are intact. ENT: External nose and ear normal in appearance. NECK: No JVD. No meningismus. No thyromegaly. Supple. Trachea midline RESP: Normal respiratory effort. Symmetric rise. CARDIAC: Tachycardic. regular rhytm. . ABDOMEN: Soft. Nondistended. MSK: Normal muscle tone, without rigidity. . . Midline low lumbar back pain. SKIN: Warm and dry. NEUROLOGIC: Alert, oriented x3. Washington Evans MD Apr 05, 2020 07:21
[2020-04-05 07:45] LABS: BASOPHILS % (AUTO) 1.1 % (0.0-2.0); EOSINOPHILS % (AUTO) 2.3 % (0.0-3.0); HEMATOCRIT 38.5 % (42.0-52.0); HEMOGLOBIN 11.7 G/DL (14.2-18.0); LYMPHOCYTES % (AUTO) 23.6 % (20.0-45.0); MEAN CORPUSCULAR VOLUME 69 FL (80-99); MONOCYTES % (AUTO) 4.3 % (1.0-10.0); NEUTROPHILS % (AUTO) 68.8 % (45.0-75.0); PLATELET COUNT 220 K/UL (150-450); RED BLOOD COUNT 5.61 M/UL (4.70-6.10); RED CELL DISTRIBUTION WIDTH 16.8 % (11.6-14.8); WHITE BLOOD COUNT 6.1 K/UL (4.8-10.8)
[2020-04-05 08:00] VITALS: BP 141/91
[2020-04-05] MEDS: Flonase Nasal Inhaler 16gm NASAL SCH (08:30)
[2020-04-05] MEDS: Cyclobenzaprine 10mg Tab ORAL SCH ×3 (08:31→18:00)
--- NOTE | 2020-04-05 10:26 | General Progress Note ---
Assessment/Plan Assessment/Plan: (1) Sickle cell disease (2) Sickle cell crisis (3) Intractable pain Patient will be continued on Dilaudid and [place] D/w Dr. Heard and he concurred. Subjective Date patient seen: Apr 05, 2020 Time patient seen: 09:30 - am Allergies: Coded Allergies: No Known Allergies (Unverified , 02/06/20) Subjective CONST: No fevers or chills, No night sweats PULMONARY: No productive cough, No shortness of breath CARDIAC: No chest pain, No palpitations GI: No vomiting, No diarrhea , No melena or BRBPR : No dysuria, No hematuria, No discharge NEURO: No new_focal weakness or numbness, No confusion, No vision changes SUBJECTIVE: Patient had only been using the [place] for the past day, however this morning felt a spike in his causing him to request 2 doses this morning of Dilaudid. Had used 4 doses of [place] in the last 24hr which had been working, but used 2 doses of Dilaudid in the last 24hrs. No new complaints at this time. Was advised to continue therapy. He seems to understand. Objective Last 24 Hour Vital Signs Date Time Temp Pulse Resp B/P (MAP) Pulse Ox O2 Delivery O2 Flow Rate FiO2 04/05/20 08:30 115 141/91 04/05/20 08:00 98.0 115 20 141/91 (108) 100 04/05/20 04:00 98.0 111 18 123/71 (88) 96 04/04/20 23:48 98.0 102 18 116/69 (85) 97 04/04/20 21:49 106 129/83 04/04/20 20:58 Nasal Cannula 2.0 04/04/20 19:45 97.7 106 19 129/83 (98) 99 04/04/20 18:11 97.7 04/04/20 16:00 98.2 106 20 121/68 (85) 100 04/04/20 12:00 97.7 104 18 119/73 (88) 98 Laboratory Tests 04/05/20 07:00: White Blood Count 6.1, Red Blood Count 5.61, Hemoglobin 11.7L, Hematocrit 38.5L , Mean Corpuscular Volume 69L, Mean Corpuscular Hemoglobin 20.9L, Mean Corpuscular Hemoglobin Concent 30.5L, Red Cell Distribution Width 16.8H, Platelet Count 220, Mean Platelet Volume 6.8, Neutrophils (%) (Auto) 68.8, Lymphocytes (%) (Auto) 23.6, Monocytes (%) (Auto) 4.3, Eosinophils (%) (Auto) 2.3, Basophils (%) (Auto) 1.1 Height (Feet): 5 Height (Inches): 9.00 Weight (Pounds): 169 Objective GENERAL: Awake alert nontoxic, no acute distress EYES: Extraocular muscles are intact. ENT: External nose and ear normal in appearance. NECK: No JVD. No meningismus. No thyromegaly. Supple. Trachea midline RESP: Normal respiratory effort. Symmetric rise. CARDIAC: Regular rhythm. . ABDOMEN: Soft. Nondistended. MSK: Normal muscle tone, without rigidity. . . Midline low lumbar back pain. SKIN: Warm and dry. NEUROLOGIC: Alert, oriented x3. Eduardo Manuel Apr 05, 2020 10:26
[2020-04-05 12:00] VITALS: BP 138/88
--- NOTE | 2020-04-05 12:11 | NUR ---
NURSE NOTES:DR. GILLESPIE NOTIFIED RE:PT.DECLINED FOR DISCHARGE TODAY.PRIMARY RN.INFORMED.
[2020-04-05 16:00] VITALS: BP 146/89
--- NOTE | 2020-04-05 16:04 | NUR ---
CASE MANAGEMENT:REVIEW SI;SICKLE CELL CRISIS. INTRACTABLE PAIN. 98.0 115 20 141/91 96% 2L NC IS;DILAUDID IV Q2 PRN FOLATE PO QD PROTONIX PO QD NORCO PO Q4 PRN FLEXERIL PO TID GABAPENTIN PO TID MED SURG STATUS DCP;FROM [facility]
--- NOTE | 2020-04-05 16:10 | NUR ---
*-* INSURANCE *-* UPDATED CLINICALS AND REVIEWS HAVE BEEN FAXED TO: SH[facility] VERMA P:[phone] F:[phone]
--- NOTE | 2020-04-05 19:22 | NUR ---
NURSE HAND-OFF: Important Events on Shift:[] Patient Status: stable Diet: regular Pending Orders: Pending Results/Labs: Pending MD notification: Latest Vital Signs: Temperature 98.0 , Pulse 108 , B/P 146 /89 , Respiratory Rate 20 , O2 SAT 100 , Nasal Cannula, O2 Flow Rate 2.0 . Vital Sign Comment: Latest Negrete Fall Score: 45 Fall Risk: High Risk Safety Measures: Call light Within Reach, Bed Alarm Zone 1, Side Rails Side Rails x2, Bed position Low and Locked. Fall Precautions: Yellow Socks Yellow Gown Door Sign Patient Fall Education Report given to Edie RN.
--- NOTE | 2020-04-05 19:30 | NUR ---
NURSE NOTES: Receive a report from MURIEL Diaz. Pt is awake and alert. No acute distress noted. Pt says lower back pain is 8/10. Refuses to take oral medication but IV medication. Will provide prn ordered. No respiratory distress noted. Spo2 100% in RA. Call light within reach. Will continue to monitor.
[2020-04-05 20:00] VITALS: BP 130/79
--- NOTE | 2020-04-05 21:13 | General Progress Note ---
Assessment/Plan Problem List: (1) DJD (degenerative joint disease) ICD Codes: M19.90 - Unspecified osteoarthritis, unspecified site SNOMED: 586713066 (2) Low back pain ICD Codes: M54.5 - Low back pain SNOMED: 797490507 (3) Sickle cell disease ICD Codes: D57.1 - Sickle-cell disease without crisis SNOMED: 341953950 (4) Sickle cell crisis ICD Codes: D57.00 - Hb-SS disease with crisis, unspecified SNOMED: 294640995 (5) History of hypertension ICD Codes: Z86.79 - Personal history of other diseases of the circulatory system SNOMED: 979878695 Status: progressing Assessment/Plan: pt still in pain and didnt want to be dc pain mamangement per dr barrera h/h stable sick cell crisis is improving Subjective ROS Limited/Unobtainable: Yes Allergies: Coded Allergies: No Known Allergies (Unverified , 02/06/20) Objective Last 24 Hour Vital Signs Date Time Temp Pulse Resp B/P (MAP) Pulse Ox O2 Delivery O2 Flow Rate FiO2 04/05/20 20:42 107 130/79 04/05/20 18:41 98.0 04/05/20 16:00 98.5 108 20 146/89 (108) 100 04/05/20 12:00 97.9 104 19 138/88 (105) 100 04/05/20 09:00 Nasal Cannula 2.0 04/05/20 08:30 115 141/91 04/05/20 08:00 98.0 115 20 141/91 (108) 100 04/05/20 04:00 98.0 111 18 123/71 (88) 96 04/04/20 23:48 98.0 102 18 116/69 (85) 97 04/04/20 21:49 106 129/83 Laboratory Tests 04/05/20 07:00: White Blood Count 6.1, Red Blood Count 5.61, Hemoglobin 11.7L, Hematocrit 38.5L , Mean Corpuscular Volume 69L, Mean Corpuscular Hemoglobin 20.9L, Mean Corpuscular Hemoglobin Concent 30.5L, Red Cell Distribution Width 16.8H, Platelet Count 220, Mean Platelet Volume 6.8, Neutrophils (%) (Auto) 68.8, Lymphocytes (%) (Auto) 23.6, Monocytes (%) (Auto) 4.3, Eosinophils (%) (Auto) 2.3, Basophils (%) (Auto) 1.1 Height (Feet): 5 Height (Inches): 9.00 Weight (Pounds): 169 Jayla Campbell MD Apr 05, 2020 21:13
[2020-04-06] VITALS: BP 129/85
[2020-04-06] MEDS: HYDROmorphone 1mg/ml Carpuject IVP PRN ×7 (00:57→21:30)
[2020-04-06 04:00] VITALS: BP 124/89
--- NOTE | 2020-04-06 06:48 | NUR ---
NURSE HAND-OFF: Important Events on Shift:[back pain] Patient Status: [] Diet: [regular] Pending Orders: [] Pending Results/Labs:[] Pending MD notification:[] Latest Vital Signs: Temperature 98.6 , Pulse 116 , B/P 124 /89 , Respiratory Rate 20 , O2 SAT 97 , Nasal Cannula, O2 Flow Rate 2.0 . Vital Sign Comment: [] Latest Negrete Fall Score: 45 Fall Risk: High Risk Safety Measures: Call light Within Reach, Bed Alarm Zone 1, Side Rails Side Rails x2, Bed position Low and Locked. Fall Precautions: Yellow Socks Yellow Gown Door Sign Patient Fall Education Given prn pain medication-Dilaudid 1mg IVS q2hrs. Pt says that pain level is 8/10 and mediation lasts 1&1/2hrs and decreased by 7/10. New IV access on left FA established. Will continue to monitor.
--- NOTE | 2020-04-06 07:20 | NUR ---
HAND-OFF: Report given to MURIEL Canales. Plans of care have discussed. Round made.
--- NOTE | 2020-04-06 07:46 | NUR ---
NURSE NOTES: PT RESTING IN BED, AROUSABLE TO VOICE. IN NO APPARENT DISTRESS AT THIS TIME. ON ROOM AIR, RESPIRATIONS EVEN AND UNLABORED. PT EDUCATED ON HOW TO USE CALL LIGHT IF NEEDING ANY ASSISTANCE. PT VERBALIZED UNDERSTANDING. WILL CONTINUE TO MONITOR.
[2020-04-06 08:00] VITALS: BP 123/85
--- NOTE | 2020-04-06 08:47 | General Progress Note ---
Assessment/Plan Assessment/Plan: (1) Sickle cell disease (2) Sickle cell crisis (3) Intractable pain Patient will be continued on Dilaudid changed to Q4H PRN and [place] D/w Dr. Heard and he concurred. Subjective Date patient seen: Apr 06, 2020 Time patient seen: 07:30 - am Allergies: Coded Allergies: No Known Allergies (Unverified , 02/06/20) Subjective CONST: No fevers or chills, No night sweats PULMONARY: No productive cough, No shortness of breath CARDIAC: No chest pain, No palpitations GI: No vomiting, No diarrhea , No melena or BRBPR : No dysuria, No hematuria, No discharge NEURO: No new_focal weakness or numbness, No confusion, No vision changes SUBJECTIVE: Patient reports that the pain has been better and using the Dilaudid 11 doses in the last 24 hrs. I d/w him about reduction of the Dilaudid to Q4H PRN and he seems to understand Objective Last 24 Hour Vital Signs Date Time Temp Pulse Resp B/P (MAP) Pulse Ox O2 Delivery O2 Flow Rate FiO2 04/06/20 08:00 98.7 102 18 123/85 (98) 98 04/06/20 04:00 98.6 116 20 124/89 (101) 97 04/06/20 00:00 98.6 112 20 129/85 (100) 100 04/05/20 21:00 Nasal Cannula 2.0 04/05/20 20:42 107 130/79 04/05/20 20:00 98.0 107 20 130/79 (96) 100 04/05/20 18:41 98.0 04/05/20 16:00 98.5 108 20 146/89 (108) 100 04/05/20 12:00 97.9 104 19 138/88 (105) 100 04/05/20 09:00 Nasal Cannula 2.0 Intake and Output 04/05/20 04/06/20 19:00 07:00 Intake Total 500 ml 900 ml Balance 500 ml 900 ml Intake Oral 500 ml 900 ml # Voids 6 # Bowel Movements 1 Height (Feet): 5 Height (Inches): 9.00 Weight (Pounds): 169 Objective GENERAL: Awake alert nontoxic, no acute distress EYES: Extraocular muscles are intact. ENT: External nose and ear normal in appearance. NECK: No JVD. No meningismus. No thyromegaly. Supple. Trachea midline RESP: Normal respiratory effort. Symmetric rise. CARDIAC: Regular rhythm. . ABDOMEN: Soft. Nondistended. MSK: Normal muscle tone, without rigidity. . . Midline low lumbar back pain. SKIN: Warm and dry. NEUROLOGIC: Alert, oriented x3. Eduardo Manuel Apr 06, 2020 08:47
[2020-04-06] MEDS: Cyclobenzaprine 10mg Tab ORAL SCH ×3 (09:00→17:22)
[2020-04-06] MEDS: Flonase Nasal Inhaler 16gm NASAL SCH (09:30)
--- NOTE | 2020-04-06 09:35 | NUR ---
NURSE NOTES: PT EDUCATED ON FREQUENCY CHANGE FOR PRN DILAUDID 1MG IVP. PT VERBALIZED UNDERSTANDING AND ADMINISTERED MEDICATION ORDERED. PT REFUSED SCHEDULED FLEXERIL. IN NO APPARENT DISTRESS AT THIS TIME. PT IS RESTING IN BED AND PT WAS EDUCATED ON FALL PRECAUTIONS. PT EDUCATED NOT TO WALK INDEPENDENTLY, ESPECIALLY IF FEELING SOB OR DIZZY. TO CALL STAFF FOR ASSISTANCE. PT VERBALIZED UNDERSTANDING. WILL CONTINUE TO MONITOR.
--- NOTE | 2020-04-06 10:24 | NUR ---
NURSE NOTES: Spoke to regarding patient and discharge and new order received. Order read back and carried out.
--- NOTE | 2020-04-06 10:38 | Hematology/Onc Progress Note ---
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 --> pain management, pain service --> ivfs have been given --> imaging noted as well --> HOLD off hydrea for now, may need it as outpatient # Thrombocytopenia rule out reactive process --> hep and hiv negative --> smear reviewed # Diffuse osteosclerosis, consistent with known history of sickle cell disease --> Patient was given Rocephin and vancomycin multiple doses Dilaudid for IV pain control. Also received IV fluids and oxygen # Low back pain --> imaging reviewed # Hepatosplenomegaly # Renal infarct # Kidney stone # DJD (degenerative joint disease) # Neural foraminal stenosis of lumbar spine # Renal cyst # Tachycardia due to hypovolemia # Dvt ppx lovenox sq Appreciate consultation and dw RN Subjective Allergies: Coded Allergies: No Known Allergies (Unverified , 02/06/20) Subjective 04/02 using incentive spirometry, no bleeding, labs noted, less pain 04/03 feeling better, sickle cell screen+, no major changes, no bleeding, hapto < 10 04/05 still c/o of mild chest pain, abd pain as well, wants to stay another night Objective Objective Current Medications Medications (Trade) Dose Ordered Sig/Emily Route PRN Reason Start Time Stop Time Status Last Admin Dose Admin Acetaminophen (Tylenol) 650 mg Q4H PRN ORAL Mild Pain (Pain Scale 1-3) 03/31/20 14:00 04/30/20 13:59 Acetaminophen/ Hydrocodone Bitart ([place] 10/325) 1 tab Q4H PRN ORAL Moderate Pain (Pain Scale 4-6) 04/01/20 09:00 04/08/20 08:59 04/05/20 05:27 Amlodipine Besylate (Norvasc) 5 mg Q12HR ORAL 03/31/20 21:00 04/30/20 20:59 04/05/20 20:42 Cyclobenzaprine HCl (Flexeril) 10 mg THREE TIMES A DAY ORAL 03/31/20 18:00 04/07/20 17:59 04/05/20 13:05 Fluticasone Propionate (Flonase) 2 spray DAILY NASAL 04/01/20 09:00 05/01/20 08:59 04/06/20 09:30 Folic Acid (Folate) 1 mg DAILY ORAL 04/01/20 09:00 05/01/20 08:59 04/06/20 09:23 Gabapentin (Neurontin) 300 mg THREE TIMES A DAY ORAL 03/31/20 18:00 04/30/20 17:59 04/06/20 09:24 Hydromorphone HCl (Dilaudid) 1 mg Q4H PRN IVP Severe Pain (Pain Scale 7-10) 04/06/20 09:00 04/10/20 10:44 04/06/20 09:25 Ondansetron HCl (Zofran ODT) 4 mg Q6H PRN ORAL Nausea & Vomiting 03/31/20 16:32 04/30/20 16:31 04/05/20 20:45 Pantoprazole (Protonix) 40 mg DAILY ORAL 04/01/20 09:00 05/01/20 08:59 04/06/20 09:23 Last 24 Hour Vital Signs Date Time Temp Pulse Resp B/P (MAP) Pulse Ox O2 Delivery O2 Flow Rate FiO2 04/06/20 09:00 102 123/85 04/06/20 08:00 98.7 102 18 123/85 (98) 98 04/06/20 04:00 98.6 116 20 124/89 (101) 97 04/06/20 00:00 98.6 112 20 129/85 (100) 100 04/05/20 21:00 Nasal Cannula 2.0 04/05/20 20:42 107 130/79 04/05/20 20:00 98.0 107 20 130/79 (96) 100 04/05/20 18:41 98.0 04/05/20 16:00 98.5 108 20 146/89 (108) 100 04/05/20 12:00 97.9 104 19 138/88 (105) 100 04/05/20 09:00 Nasal Cannula 2.0 04/05/20 08:30 115 141/91 04/05/20 08:00 98.0 115 20 141/91 (108) 100 04/05/20 04:00 98.0 111 18 123/71 (88) 96 04/04/20 23:48 98.0 102 18 116/69 (85) 97 04/04/20 21:49 106 129/83 04/04/20 20:58 Nasal Cannula 2.0 04/04/20 19:45 97.7 106 19 129/83 (98) 99 04/04/20 18:11 97.7 04/04/20 16:00 98.2 106 20 121/68 (85) 100 04/04/20 12:00 97.7 104 18 119/73 (88) 98 Intake and Output 04/05/20 04/06/20 19:00 07:00 Intake Total 500 ml 900 ml Balance 500 ml 900 ml Intake Oral 500 ml 900 ml # Voids 6 # Bowel Movements 1 Labs Test 04/04/20 05:25 04/05/20 07:00 White Blood Count 6.6 K/UL (4.8-10.8) 6.1 K/UL (4.8-10.8) Red Blood Count 5.65 M/UL (4.70-6.10) 5.61 M/UL (4.70-6.10) Hemoglobin 11.8 G/DL (14.2-18.0) 11.7 G/DL (14.2-18.0) Hematocrit 38.7 % (42.0-52.0) 38.5 % (42.0-52.0) Mean Corpuscular Volume 68 FL (80-99) 69 FL (80-99) Mean Corpuscular Hemoglobin 20.9 PG (27.0-31.0) 20.9 PG (27.0-31.0) Mean Corpuscular Hemoglobin Concent 30.5 G/DL (32.0-36.0) 30.5 G/DL (32.0-36.0) Red Cell Distribution Width 16.6 % (11.6-14.8) 16.8 % (11.6-14.8) Platelet Count 211 K/UL (150-450) 220 K/UL (150-450) Mean Platelet Volume 8.0 FL (6.5-10.1) 6.8 FL (6.5-10.1) Neutrophils (%) (Auto) 62.2 % (45.0-75.0) 68.8 % (45.0-75.0) Lymphocytes (%) (Auto) 29.0 % (20.0-45.0) 23.6 % (20.0-45.0) Monocytes (%) (Auto) 5.2 % (1.0-10.0) 4.3 % (1.0-10.0) Eosinophils (%) (Auto) 2.6 % (0.0-3.0) 2.3 % (0.0-3.0) Basophils (%) (Auto) 1.0 % (0.0-2.0) 1.1 % (0.0-2.0) Height (Feet): 5 Height (Inches): 9.00 Weight (Pounds): 169 Objective Physical Exam: GENERAL: Awake alert nontoxic, no acute distress EYES: Extraocular muscles are intact. ENT: External nose and ear normal in appearance. NECK: No JVD. No meningismus. No thyromegaly. Supple. Trachea midline RESP: Normal respiratory effort. Symmetric rise. CARDIAC: Tachycardic. regular rhytm. . ABDOMEN: Soft. Nondistended. MSK: Normal muscle tone, without rigidity. . . Midline low lumbar back pain. SKIN: Warm and dry. NEUROLOGIC: Alert, oriented x3. Washington Evans MD Apr 06, 2020 10:38
--- NOTE | 2020-04-06 11:10 | NUR ---
NURSE NOTES: PER RADHA BOND (ABRAHAM), PT DOES NOT NEED PRESCRIPTION PAIN MEDS WHEN DISCHARGED HOME. PT HAS NORCO PRESCRIPTION AND IS CLEARED TO BE DISCHARGED. CRN MADE AWARE.
--- NOTE | 2020-04-06 11:57 | NUR ---
NURSE NOTES: PT MADE AWARE OF DISCHARGE AND PT AGREES. RN LEFT MESSAGE FOR SARAH [employer] PROGRAM[employer] REGARDING TRANSPORTATION AND PLACEMENT BACK TO [facility].
[2020-04-06 12:06] VITALS: BP 131/91
--- NOTE | 2020-04-06 12:36 | NUR ---
NURSE NOTES: RN SPOKE TO AYALA SAUCEDO AND TRANSITIONAL CARE NURSE SARAH WILL SEE PT.
[2020-04-06] MEDS: HYDROcodone/Acetamin 10/325 tab ORAL PRN ×2 (13:42→23:54)
--- NOTE | 2020-04-06 14:33 | NUR ---
NURSE NOTES: PT IS INDEPENDENT WITH CARE/ADLs. HAS SINGLE POINT CANE AT BEDSIDE WHICH PT USES TO AMBULATE. PT DOES NOT CALL RN/STAFF FOR ANY ASSISTANCE WITH ADLs AND RN DOES HOURLY ROUNDING TO MAKE SURE NEEDS ARE MET.
[2020-04-06 15:15] VITALS: BP 110/71
--- NOTE | 2020-04-06 15:15 | NUR ---
Social Work This SW sent chart information to the following, for approval to return back to his bed @ [facility] [email or web address] ([facility] provider) [email or web address] ([facility] provider) [email or web address] ([facility]) Pending approval for readmission at this time. Patient and nursing informed. SW to follow.
--- NOTE | 2020-04-06 18:09 | NUR ---
NURSE NOTES: NO NOTIFICATION RECEIVED REGARDING DISCHARGE TO [facility]. PER [employer] NOTES, CLINICALS HAVE BEEN FAXED. PENDING DISCHARGE, WILL ENDORSE TO FOLLOW UP TOMORROW. PT MADE AWARE DISCHARGE IS NOT OCCURRING TODAY. PT VERBALIZED UNDERSTANDING. PT STATES HE HAD A NORMAL BM TODAY AND HAD NO DIFFICULTY AMBULATING TO BATHROOM WITH CANE. IN NO APPARENT DISTRESS AT THIS TIME. WILL CONTINUE TO MONITOR.
--- NOTE | 2020-04-06 18:11 | NUR ---
NURSE HAND-OFF: Important Events on Shift: DISCHARGE TO [facility] PENDING, NEED TO FOLLOW UP WITH SOCIAL PROBLEMS SPECIALIST TOMORROW. Patient Status: STABLE Diet: REGULAR Pending Orders: PENDING DISCHARGE Pending Results/Labs:N/A Pending MD notification: DR GILLESPIE MADE AWARE OF PENDING DISCHARGE. Latest Vital Signs: Temperature 98.4 , Pulse 108 , B/P 110 /71 , Respiratory Rate 18 , O2 SAT 98 , Nasal Cannula, O2 Flow Rate 2.0 . Vital Sign Comment: STABLE Latest Negrete Fall Score: 45 Fall Risk: High Risk Safety Measures: Call light Within Reach, Bed Alarm Zone 1, Side Rails Side Rails x2, Bed position Low and Locked. Fall Precautions: Yellow Socks Yellow Gown Door Sign Patient Fall Education Addendum: 04/06/20 at 1902 by LENORE JEAN RN RN HAND-OFF: Report given to Thi BLANCO RN.
--- NOTE | 2020-04-06 18:44 | NUR ---
INSURANCE UPDATED CLINICALS FAXED TO: SHANTEL VERMA P:[phone] F:[phone]
--- NOTE | 2020-04-06 19:34 | NUR ---
received report and patient from JIMMY RN. Patient alert and oriented x4 with no acute s/s of distress. Patient had pain 7/10 and will give pain medications when due. IV noted clean dry and intact and saline locked. Plan of care discussed.
[2020-04-06 19:48] VITALS: BP 133/86
--- NOTE | 2020-04-06 22:11 | General Progress Note ---
Assessment/Plan Problem List: (1) DJD (degenerative joint disease) ICD Codes: M19.90 - Unspecified osteoarthritis, unspecified site SNOMED: 554204948 (2) Low back pain ICD Codes: M54.5 - Low back pain SNOMED: 578595276 (3) Sickle cell disease ICD Codes: D57.1 - Sickle-cell disease without crisis SNOMED: 294351531 (4) Sickle cell crisis ICD Codes: D57.00 - Hb-SS disease with crisis, unspecified SNOMED: 305076101 (5) History of hypertension ICD Codes: Z86.79 - Personal history of other diseases of the circulatory system SNOMED: 237357619 Status: progressing Assessment/Plan: afebrile needs placement h/h is normal sick cell crisis is improving Subjective ROS Limited/Unobtainable: Yes Allergies: Coded Allergies: No Known Allergies (Unverified , 02/06/20) Objective Last 24 Hour Vital Signs Date Time Temp Pulse Resp B/P (MAP) Pulse Ox O2 Delivery O2 Flow Rate FiO2 04/06/20 21:29 108 133/86 04/06/20 19:51 Nasal Cannula 2.0 04/06/20 19:48 97.2 108 16 133/86 (102) 98 04/06/20 15:15 98.4 108 18 110/71 (84) 98 04/06/20 12:06 98.1 106 18 131/91 (104) 100 04/06/20 09:00 Nasal Cannula 2.0 04/06/20 09:00 102 123/85 04/06/20 08:00 98.7 102 18 123/85 (98) 98 04/06/20 04:00 98.6 116 20 124/89 (101) 97 04/06/20 00:00 98.6 112 20 129/85 (100) 100 Intake and Output 04/05/20 04/06/20 19:00 07:00 Intake Total 500 ml 900 ml Balance 500 ml 900 ml Intake Oral 500 ml 900 ml # Voids 6 # Bowel Movements 1 Height (Feet): 5 Height (Inches): 9.00 Weight (Pounds): 169 Jayla Campbell MD Apr 06, 2020 22:11
[2020-04-07] VITALS: BP 135/95
[2020-04-07] MEDS: HYDROmorphone 1mg/ml Carpuject IVP PRN ×4 (03:49→17:05)
[2020-04-07 04:00] VITALS: BP 128/93
[2020-04-07] MEDS: HYDROcodone/Acetamin 10/325 tab ORAL PRN ×3 (06:18→14:33)
--- NOTE | 2020-04-07 07:29 | NUR ---
NURSE HAND-OFF: Important Events on Shift:pain management, awaiting approval from [facility] for discharge Patient Status: stable Diet: regular Pending Orders: NA Pending Results/Labs:NA Pending MD notification:NA Latest Vital Signs: Temperature 99.1 , Pulse 102 , B/P 128 /93 , Respiratory Rate 14 , O2 SAT 99 , Nasal Cannula, O2 Flow Rate 2.0 . Vital Sign Comment: stable throughout shift, tachycardia Latest Negrete Fall Score: 45 Fall Risk: High Risk Safety Measures: Call light Within Reach, Bed Alarm Zone 1, Side Rails Side Rails x2, Bed position Low and Locked. Fall Precautions: Yellow Socks Yellow Gown Door Sign Patient Fall Education Report given to MURIEL Jacome.
--- NOTE | 2020-04-07 07:49 | NUR ---
NURSE NOTES: Received report from Cheryl Flores RN, rounds made pt , pt having breakfast, no s/o distress on R A, pt complain of pain , pt verbalizes always being in pain, however states what he is experiencing is manageable ,pt has a LT FA 22G locked , bed in low locked position, call light within in reach , will continue with painm Addendum: 04/07/20 at 0759 by Naa Patton RN will continue with pain management
[2020-04-07 08:00] VITALS: BP 129/80
--- NOTE | 2020-04-07 08:33 | NUR ---
Social Work Awaiting response from [facility] and [facility] for approval back Recuperative Care (no return e-mail sent 04/07/2020; no phone contacts provided at this time).
[2020-04-07] MEDS: Cyclobenzaprine 10mg Tab ORAL SCH (08:35)
[2020-04-07] MEDS: Flonase Nasal Inhaler 16gm NASAL SCH (08:35)
--- NOTE | 2020-04-07 08:37 | Hematology/Onc Progress Note ---
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 --> pain management, pain service --> ivfs have been given --> imaging noted as well --> HOLD off hydrea for now, may need it as outpatient # Thrombocytopenia rule out reactive process --> hep and hiv negative --> smear reviewed # Diffuse osteosclerosis, consistent with known history of sickle cell disease --> Patient was given Rocephin and vancomycin multiple doses Dilaudid for IV pain control. Also received IV fluids and oxygen # Low back pain --> imaging reviewed # Hepatosplenomegaly # Renal infarct # Kidney stone # DJD (degenerative joint disease) # Neural foraminal stenosis of lumbar spine # Renal cyst # Tachycardia due to hypovolemia # Dvt ppx lovenox sq Appreciate consultation and tamiko RN Subjective HEENT: Denies: no symptoms, eye pain, blurred vision, tearing, double vision, ear pain, ear discharge, nose pain, nose congestion, throat pain, throat swelling, mouth pain, mouth swelling, other Cardiovascular: Denies: no symptoms, chest pain, edema, irregular heart rate, lightheadedness, palpitations, syncope, other Respiratory: Denies: no symptoms, cough, shortness of breath, SOB with excertion, SOB at rest, sputum, wheezing, other Gastrointestinal/Abdominal: Denies: no symptoms, abdomen distended, abdominal pain, black stools, tarry stools, blood in stool, constipated, diarrhea, difficulty swallowing, nausea, poor appetite, poor fluid intake, rectal bleeding , vomiting, other Genitourinary: Denies: no symptoms, burning, discharge, frequency, flank pain, hematuria, incontinence, pain, urgency, other Neurologic/Psychiatric: Denies: no symptoms, anxiety, depressed, emotional problems, headache, numbness, paresthesia, pre-existing deficit, seizure, tingling, tremors, weakness, other Endocrine: Denies: no symptoms, excessive sweating, flushing, intolerance to cold, intolerance to heat, increased hunger, increased thirst, increased urine, unexplained weight gain, unexplained weight loss, other Allergies: Coded Allergies: No Known Allergies (Unverified , 02/06/20) Subjective 04/02 using incentive spirometry, no bleeding, labs noted, less pain 04/03 feeling better, sickle cell screen+, no major changes, no bleeding, hapto < 10 04/05 still c/o of mild chest pain, abd pain as well, wants to stay another night 04/06 labs are noted, no bleeding, no major events 04/07 hgb 11.7, no bleeding, is in less pain than before Objective Objective Current Medications Medications (Trade) Dose Ordered Sig/Emily Route PRN Reason Start Time Stop Time Status Last Admin Dose Admin Acetaminophen (Tylenol) 650 mg Q4H PRN ORAL Mild Pain (Pain Scale 1-3) 03/31/20 14:00 04/30/20 13:59 Acetaminophen/ Hydrocodone Bitart ([place] 10/325) 1 tab Q4H PRN ORAL Moderate Pain (Pain Scale 4-6) 04/01/20 09:00 04/08/20 08:59 04/07/20 06:18 Amlodipine Besylate (Norvasc) 5 mg Q12HR ORAL 03/31/20 21:00 04/30/20 20:59 04/07/20 08:35 Cyclobenzaprine HCl (Flexeril) 10 mg THREE TIMES A DAY ORAL 03/31/20 18:00 04/07/20 17:59 04/07/20 08:35 Enoxaparin Sodium (Lovenox) 30 mg DAILY SUBQ 04/07/20 09:00 07/06/20 08:59 Fluticasone Propionate (Flonase) 2 spray DAILY NASAL 04/01/20 09:00 05/01/20 08:59 04/07/20 08:35 Folic Acid (Folate) 1 mg DAILY ORAL 04/01/20 09:00 05/01/20 08:59 04/07/20 08:34 Gabapentin (Neurontin) 300 mg THREE TIMES A DAY ORAL 03/31/20 18:00 04/30/20 17:59 04/07/20 08:35 Hydromorphone HCl (Dilaudid) 1 mg Q4H PRN IVP Severe Pain (Pain Scale 7-10) 04/06/20 09:00 04/10/20 10:44 04/07/20 08:35 Ondansetron HCl (Zofran ODT) 4 mg Q6H PRN ORAL Nausea & Vomiting 03/31/20 16:32 04/30/20 16:31 04/05/20 20:45 Pantoprazole (Protonix) 40 mg DAILY ORAL 04/01/20 09:00 05/01/20 08:59 04/07/20 08:35 Last 24 Hour Vital Signs Date Time Temp Pulse Resp B/P (MAP) Pulse Ox O2 Delivery O2 Flow Rate FiO2 04/07/20 08:35 93 129/80 04/07/20 08:00 98.0 93 18 129/80 (96) 100 04/07/20 04:00 99.1 102 14 128/93 (105) 99 04/07/20 00:00 98.3 106 17 135/95 (108) 98 04/06/20 21:29 108 133/86 04/06/20 19:51 Nasal Cannula 2.0 04/06/20 19:48 97.2 108 16 133/86 (102) 98 04/06/20 15:15 98.4 108 18 110/71 (84) 98 04/06/20 12:06 98.1 106 18 131/91 (104) 100 04/06/20 09:00 Nasal Cannula 2.0 04/06/20 09:00 102 123/85 04/06/20 08:00 98.7 102 18 123/85 (98) 98 04/06/20 04:00 98.6 116 20 124/89 (101) 97 04/06/20 00:00 98.6 112 20 129/85 (100) 100 04/05/20 21:00 Nasal Cannula 2.0 04/05/20 20:42 107 130/79 04/05/20 20:00 98.0 107 20 130/79 (96) 100 04/05/20 18:41 98.0 04/05/20 16:00 98.5 108 20 146/89 (108) 100 04/05/20 12:00 97.9 104 19 138/88 (105) 100 04/05/20 09:00 Nasal Cannula 2.0 Intake and Output 04/06/20 04/07/20 19:00 07:00 Intake Total 400 ml Balance 400 ml Intake Oral 400 ml # Voids 2 # Bowel Movements 1 Labs Test 04/05/20 07:00 White Blood Count 6.1 K/UL (4.8-10.8) Red Blood Count 5.61 M/UL (4.70-6.10) Hemoglobin 11.7 G/DL (14.2-18.0) Hematocrit 38.5 % (42.0-52.0) Mean Corpuscular Volume 69 FL (80-99) Mean Corpuscular Hemoglobin 20.9 PG (27.0-31.0) Mean Corpuscular Hemoglobin Concent 30.5 G/DL (32.0-36.0) Red Cell Distribution Width 16.8 % (11.6-14.8) Platelet Count 220 K/UL (150-450) Mean Platelet Volume 6.8 FL (6.5-10.1) Neutrophils (%) (Auto) 68.8 % (45.0-75.0) Lymphocytes (%) (Auto) 23.6 % (20.0-45.0) Monocytes (%) (Auto) 4.3 % (1.0-10.0) Eosinophils (%) (Auto) 2.3 % (0.0-3.0) Basophils (%) (Auto) 1.1 % (0.0-2.0) Height (Feet): 5 Height (Inches): 9.00 Weight (Pounds): 169 Objective Physical Exam: GENERAL: Awake alert nontoxic, no acute distress EYES: Extraocular muscles are intact. ENT: External nose and ear normal in appearance. NECK: No JVD. No meningismus. No thyromegaly. Supple. Trachea midline RESP: Normal respiratory effort. Symmetric rise. CARDIAC: Tachycardic. regular rhytm. . ABDOMEN: Soft. Nondistended. MSK: Normal muscle tone, without rigidity. . . Midline low lumbar back pain. SKIN: Warm and dry. NEUROLOGIC: Alert, oriented x3. Washington Evans MD Apr 07, 2020 08:37
--- NOTE | 2020-04-07 08:52 | General Progress Note ---
Assessment/Plan Assessment/Plan: (1) Sickle cell disease (2) Sickle cell crisis (3) Intractable pain Patient will be continued on Dilaudid and [place] D/w Dr. Heard and he concurred. Subjective Date patient seen: Apr 07, 2020 Time patient seen: 08:30 - am Allergies: Coded Allergies: No Known Allergies (Unverified , 02/06/20) Subjective CONST: No fevers or chills, No night sweats PULMONARY: No productive cough, No shortness of breath CARDIAC: No chest pain, No palpitations GI: No vomiting, No diarrhea , No melena or BRBPR : No dysuria, No hematuria, No discharge NEURO: No new_focal weakness or numbness, No confusion, No vision changes SUBJECTIVE: Patient is in bed no signs of pain or distress. He reports pain continues to reduce and is feeling slightly better. Pain has been at a moderate level using 5 Dilaudid and 3 [place] in the last 24hrs. Objective Last 24 Hour Vital Signs Date Time Temp Pulse Resp B/P (MAP) Pulse Ox O2 Delivery O2 Flow Rate FiO2 04/07/20 08:35 93 129/80 04/07/20 08:00 98.0 93 18 129/80 (96) 100 04/07/20 04:00 99.1 102 14 128/93 (105) 99 04/07/20 00:00 98.3 106 17 135/95 (108) 98 04/06/20 21:29 108 133/86 04/06/20 19:51 Nasal Cannula 2.0 04/06/20 19:48 97.2 108 16 133/86 (102) 98 04/06/20 15:15 98.4 108 18 110/71 (84) 98 04/06/20 12:06 98.1 106 18 131/91 (104) 100 04/06/20 09:00 Nasal Cannula 2.0 04/06/20 09:00 102 123/85 Intake and Output 04/06/20 04/07/20 19:00 07:00 Intake Total 400 ml Balance 400 ml Intake Oral 400 ml # Voids 2 # Bowel Movements 1 Height (Feet): 5 Height (Inches): 9.00 Weight (Pounds): 169 Objective GENERAL: Awake alert nontoxic, no acute distress EYES: Extraocular muscles are intact. ENT: External nose and ear normal in appearance. NECK: No JVD. No meningismus. No thyromegaly. Supple. Trachea midline RESP: Normal respiratory effort. Symmetric rise. CARDIAC: Regular rhythm. . ABDOMEN: Soft. Nondistended. MSK: Normal muscle tone, without rigidity. . . Midline low lumbar back pain. SKIN: Warm and dry. NEUROLOGIC: Alert, oriented x3. Eduardo Manuel Apr 07, 2020 08:52
[2020-04-07] MEDS ORDERED: Enoxaparin 30mg Inj SUBQ SCH (09:00)
[2020-04-07 12:00] VITALS: BP 149/94
--- NOTE | 2020-04-07 13:25 | NUR ---
CASE MANAGEMENT:REVIEW 04/06/20 SI;SICKLE CELL CRISIS. INTRACTABLE PAIN. 98.6 116 20 124/89 97% 2L NC IS;DILAUDID IV Q4/PRN FOLATE PO QD PROTONIX PO QD NORCO PO Q4 PRN FLEXERIL PO TID GABAPENTIN PO TID MED SURG STATUS DCP;FROM RECUPERATIVE CARE PLAN: ESTABLISH PLACEMNT TO [facility] WAITING ON ACCEPTANCE CASE MANAGEMENT:REVIEW 04/07/20 SI;SICKLE CELL CRISIS. INTRACTABLE PAIN. 98.3 106 17 135/95 98% 2L NC IS;DILAUDID IV Q2 PRN FOLATE PO QD PROTONIX PO QD NORCO PO Q4 PRN FLEXERIL PO TID GABAPENTIN PO TID MED SURG STATUS DCP;FROM RECUPERATIVE CARE PLAN: FIONA RE-FAXED ALL DOCUMENTATION TO [facility]; NO COMMUNICATION VIA PHONE SW COMMUNICATING VIA E-MAIL Addendum: 04/07/20 at 1345 by LEWIS NOGUEIRA LVN PT EVAL AND THERAPY RECOMMENDATION
--- NOTE | 2020-04-07 13:29 | NUR ---
INSURANCE UPDATED CLINICALS FAXED TO: SHANTEL VERMA P:[phone] F:[phone]
--- NOTE | 2020-04-07 13:45 | NUR ---
DISCHARGE PLANNING PATIENT REFERRED BACK TO [facility] FOR PLACEMENT ORGANIZATION REQUESTING PT EVALUATION AND RECOMMENDATION PT EVAL TO BE DONE TODAY AN FAXED BACK TO [facility] SW MADE AWARE OF PLAN FOR PT EVAL
--- NOTE | 2020-04-07 13:45 | NUR ---
Social Work Juan David Vogel, Manager Statistics @ [facility] contacted this SW via phone and requested statement from this SW stating patient is able to ambulate and complete own ADLs independently. This SW sent statment via e-mail @ [email or web address]. This SW also resent gut sorter from 04/06/2020 stating levels of independency, as well as negative COVID results. Pending P.T evaluation, as needed. This Sw informed Juan David regarding ready for discharge 04/06/2020 (awaiting approval for housing from them, due to patient is homeless).
--- NOTE | 2020-04-07 14:55 | NUR ---
P.T Note: P.T evaluation completed. Pt despite of generalized pain is able to perform basic functional mobilities: bed mobility, transfers and gait/locomotion independently provided with extended time which was needed to complete above mobility tasks. Skilled P.T service not needed at this time. Pt is cleared to return ro prior living arrangement.DC P.T service. Thank you for this referral. Addendum: 04/07/20 at 1456 by NISHA HOLDEN PT Amended: Links added.
--- NOTE | 2020-04-07 15:17 | NUR ---
Social Work This e-mailed P.T notes and evaluation to [facility] Sebastián Leup to Jua nDavid Vogel @ [email or web address] for bed approval/return to prior housing today (if will accept). Pending evaluation at this time.
--- NOTE | 2020-04-07 15:52 | NUR ---
*-* INSURANCE *-* UPDATED CLINICALS AND REVIEWS HAVE BEEN FAXED TO: SHANTEL VERMA P:[phone] F:[phone]
[2020-04-07 16:00] VITALS: BP 124/90
--- NOTE | 2020-04-07 16:10 | NUR ---
*-*DISCHARGE PLANNED*-* PATIENT HAS BEEN CLEARED TO DC BACK TO [facility] [address] [place] [address] NURSE KENNY MADE AWARE AND OF DC INSTRUCTIONS NURSE TO CLARIFY MEDICATION AND SEND TO ADDRESS ABOVE VIA CAB
--- NOTE | 2020-04-07 16:12 | NUR ---
Social Work Zac Cobb provided approval/Authorization (copy of e-mail on front of patients chart) for patient to discharge back to [facility]. This SW spoke with Pat @ [facility] ([phone]) who explained they will accept patient back to the following address: (will need his medications sent with patient). [address], [address] Cab to be arranged for transportation to this address. Case Management and nursing informed.
--- NOTE | 2020-04-07 16:30 | NUR ---
NURSE NOTES: pt asked if he needed any of his home medication refilled as director social welfare said pt had no medication, verified with pt and he said he has all his home medications at the facility where he is being discharged to
--- NOTE | 2020-04-07 17:35 | NUR ---
NURSE NOTES: PT discharged in stable condition. Transportation to facility provided by the hospital;
[2020-04-08] MEDS ORDERED: Enoxaparin 40mg Inj SUBQ SCH (09:00)
--- NOTE | 2020-04-08 12:14 | Discharge Summary ---
Discharge Summary Discharge Summary _ DATE OF ADMISSION: 03/31/2020 DATE OF DISCHARGE: 04/07/2020 DISCHARGED BY: Dr Campbell REASON FOR ADMISSION: 49 years old male with past medical history of sickle cell disease, presented with two days of back pain. He denied urinary retention, urinary or fecal incontinence, saddle anesthesia, hematuria, dysuria, scrotal or penile pain or abdominal pain. No chest pain or shortness of breath. No fever or chills. He denied any trauma or injury to the back. Upon evaluation vital signs were stable. Chest x-ray revealed no acute cardiopulmonary pathology. EKG revealed sinus tachycardia, no acute ischemic changes. Laboratory work-up revealed no leukocytosis, hemoglobin 11.3, hematocrit 37.5, platelet count 170. Reticulocyte count 2.3. LDH 368. Stable electrolytes and renal parameters. Urinalysis revealed no evidence of urinary tract infection. CT scan of the lumbar spine revealed multilevel intravertebral endplate disc herniation , so-called Schmorl nodes. Mild generalized osteosclerosis. No definite CT findings to suggest acute infection. CT scan of the abdomen and pelvis revealed multifocal areas in the kidneys bilaterally, suspected representing tiny infarcts, given clinical history of sickle cell anemia. Massive splenomegaly and hepatomegaly. Basilar parenchymal reticular opacity. Diffuse osteosclerosis consistent with known history of sickle cell disease. In emergency department patient received analgesic and admitted for further management. CONSULTANTS: knife machine operator/oncologist Dr. Evans pain specialist Dr. Heard HOSPITAL COURSE: Patient admitted and started on IV hydration. Supplemental oxygen provided and titrated to keep pulse oximetry above 92%. DVT and GI prophylaxis provided. Pain management was addressed as per pain specialist recommendation. Hemoglobin and hematocrit were closely monitored with goal to keep hemoglobin a steven 7. Hemoglobin and hematocrit remained at baseline, prior to discharge hemoglobin 11.7 and hematocrit 28.5. Hepatitis panel was negative. HIV test was nonreactive. LDH trended up . Patient follows-up with knife machine operator as outpatient. Patient was continued on folic acid. Patient was on folic acid as prescribed by outpatient knife machine operator. No Hydrea was prescribed by outpatient knife machine operator. Placement was found and secured by social services coordinator [facility] for [facility] Patient was referred to [facility] for placement. PT evaluation was done with recommendations . Patient subsequently was transferred to [facility] for further management. FINAL DIAGNOSES: Sickle cell disease Intractable pain Sickle cell crisis Anemia due to sickle cell crisis Diffuse osteosclerosis , consistent with known history of sickle cell disease Low back pain secondary to diffuse osteosclerosis Hepatosplenomegaly Renal infarcts DISCHARGE MEDICATIONS: See Medication Reconciliation list. DISCHARGE INSTRUCTIONS: Patient was discharged to recuperative care. Patient to follow-up with knife machine operator in 1 week. I have been assigned to dictate discharge summary for this account. I was not involved in the patient's management. Carina Berkowitz NP Apr 08, 2020 12:14
--- NOTE | 2020-04-08 18:30 | NUR ---
INSURANCE DC SUMMARY FAXED TO [facility] P:[phone] F:[phone]
== END 2020-04-07 17:35 | disposition home or self-care (01) | DRG 662 ==
LOC: EDBD 10:01 → EMR 10:27 → 3E 11:13 → EDBEDREQ 12:07 → 3E 14:03 → OBSVTOIN 16:29
DX: D57.00 Hb-SS disease with crisis, unspecified (principal); M85.80 Other specified disorders of bone density and structure, unspecified site; N28.0 Ischemia and infarction of kidney; M19.90 Unspecified osteoarthritis, unspecified site; E86.1 Hypovolemia; M99.53 Intervertebral disc stenosis of neural canal of lumbar region; R16.2 Hepatomegaly with splenomegaly, not elsewhere classified; M48.061 Spinal stenosis, lumbar region without neurogenic claudication; R00.0 Tachycardia, unspecified; D69.6 Thrombocytopenia, unspecified
CPT/HCPCS: 36415; 71045; 72132; 74177; 80053; 81003; 82728; 83010; 83615; 84165; 84484; 85025; 85044; 85610; 85660; 85730; 86703; 86705; 86709; 86803; 87340; 93005; 96361; 96365; 96375; 96376; 99291; J2405; J7030; U0002